=== PATIENT | female | born 1955 | race African-American/Black ===

== ENCOUNTER 2020-02-27 09:58 | Inpatient (IN) | payer OTHER ==
[~2020-02-27] VITALS: Ht 157.5 cm; Wt 76.4 kg
[2020-02-27] VITALS (15 sets, daily range): BP systolic 103–239; BP diastolic 73–113
[~2020-02-27 09:58] MED LIST: ACETAMINOPHEN-1 EAC1 ORAL; AMOXICILLIN500 M1 PO; AMOXICILLIN500 MG ORAL; BENAZEPRIL HCL40 MG ORAL; GLUCOTROL10 MG ORAL; IBUPROFEN600 MG ORAL; LANTUS SOL100 UNIT/1 SUBQ; LEVEMIR FL100 UNIT/1 SUBQ; LISINOPRIL20 MG ORAL; METFORMIN HCL1000 M1 ORAL; NORVASC5 MG ORAL; NOVOLOG100 UNIT/4 SQ; NOVOLOG100 UNITS1 SUBQ; ROBAXIN-750750 MG PO; VERAPAMIL ER120 M1 PO; bp med
--- NOTE | 2020-02-27 10:11 | Emergency Room Report ---
History of Present Illness General Chief Complaint: Nausea, Vomiting, and Diarrhea Source: Patient, EMS Present Illness HPI Patient is a 64-year-old female past medical history of diabetes, hypertension and obesity who was brought in by EMS from her home for nausea, vomiting and diarrhea. Patient complains of diffuse abdominal cramping that began last night. She complains of nonbilious nonbloody vomitus as well as nonbloody diarrhea. She states that she has not taken any of her medications today per EMS patient was hypertensive. She denies any headache, dizziness or blurry vision. She denies any chest pain or shortness of breath. She denies any focal weakness. Patient was given 4 mg of Zofran and IV fluids by EMS prior to arrival. 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 Patient History Reviewed Nursing Documentation: PMH: Agreed; PSxH: Agreed Nursing Documentation-PMH Past Medical History: No History, Except For Hx Cardiac Problems: Yes Hx Hypertension: Yes Hx Diabetes: Yes Hx Cancer: No Hx Gastrointestinal Problems: Yes - Nausea, Vomiting, Diarrhea Hx Neurological Problems: No Hx Cerebrovascular Accident: Yes Review of Systems All Other Systems: negative except mentioned in HPI Physical Exam Vital Signs Date Time Temp Pulse Resp B/P (MAP) Pulse Ox O2 Delivery O2 Flow Rate FiO2 02/27/20 09:52 97.9 120 17 242/130 (167) 99 Room Air Sp02 EP Interpretation: reviewed, normal General Appearance: alert, GCS 15, mild distress Head: normocephalic, atraumatic Eyes: bilateral eye normal inspection, bilateral eye PERRL ENT: dry mucus membranes Neck: full range of motion, supple/symm/no masses Respiratory: chest non-tender, lungs clear, normal breath sounds, speaking full sentences Cardiovascular #1: tachycardia Gastrointestinal: no guarding, no rebound, other - Mild diffuse abdominal pain Rectal: deferred Genitourinary: no CVA tenderness Musculoskeletal: normal range of motion, no calf tenderness 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 Due to a high probability of clinically significant, life threatening deterioration, the patient required my highest level of preparedness to intervene emergently and I personally spent this critical care time directly and personally managing the patient. This critical care time included obtaining a history; examining the patient; pulse oximetry; ordering and review of studies; arranging urgent treatment with development of a management plan; evaluation of patient's response to treatment ; frequent reassessment; and, discussions with other providers.This critical care time was performed to assess and manage the high probability of imminent, life-threatening deterioration that could result in multi-organ failure. It was exclusive of separately billable procedures and treating other patients and teaching time. Please see MDM section and the rest of the note for further information on patient assessment and treatment. Medical Decision Making Diagnostic Impression: Primary Impression: DKA (diabetic ketoacidoses) Additional Impressions: Hypertensive emergency Hypokalemia Acute renal failure Dehydration Sepsis Elevated troponin ER Course Patient has been pancultured. Patient given 30 mg of IV hydralazine for her hypertensive emergency. Her blood pressure has improved. Patient in DKA. Patient given 7 units of IV insulin and started on insulin drip. Patient's potassium is only 3.4 I have ordered for oral and IV potassium supplementation. Patient has elevated troponin with no chest pain. Patient given aspirin p.o. IV fluids have been stopped due to the fact that she has CHF and risk of respiratory failure. Patient will be admitted to the ICU for further treatment and evaluation. Laboratory Tests Test 02/27/20 10:10 02/27/20 10:12 02/27/20 10:22 02/27/20 11:30 White Blood Count 14.4 K/UL (4.8-10.8) H Red Blood Count 6.32 M/UL (4.20-5.40) H Hemoglobin 16.1 G/DL (12.0-16.0) H Hematocrit 49.3 % (37.0-47.0) H Mean Corpuscular Volume 78 FL (80-99) L Mean Corpuscular Hemoglobin 25.5 PG (27.0-31.0) L Mean Corpuscular Hemoglobin Concent 32.7 G/DL (32.0-36.0) Red Cell Distribution Width 13.5 % (11.6-14.8) Platelet Count 293 K/UL (150-450) Mean Platelet Volume 7.7 FL (6.5-10.1) Neutrophils (%) (Auto) % (45.0-75.0) Lymphocytes (%) (Auto) % (20.0-45.0) Monocytes (%) (Auto) % (1.0-10.0) Eosinophils (%) (Auto) % (0.0-3.0) Basophils (%) (Auto) % (0.0-2.0) Differential Total Cells Counted 100 Neutrophils % (Manual) 90 % (45-75) H Lymphocytes % (Manual) 5 % (20-45) L Monocytes % (Manual) 5 % (1-10) Eosinophils % (Manual) 0 % (0-3) Basophils % (Manual) 0 % (0-2) Band Neutrophils 0 % (0-8) Platelet Estimate Adequate Platelet Morphology Normal Red Blood Cell Morphology Normal Prothrombin Time 11.1 SEC (9.30-11.50) Prothrombin Time INR 1.0 (0.9-1.1) Activated Partial Thromboplast Time 22 SEC (23-33) L Urine Color Pale yellow Urine Appearance Clear Urine pH 6.5 (4.5-8.0) Urine Specific [place] 1.005 (1.005-1.035) Urine Protein 3+ (NEGATIVE) H Urine Glucose (UA) 4+ (NEGATIVE) H Urine Ketones 2+ (NEGATIVE) H Urine Blood 3+ (NEGATIVE) H Urine Nitrite Negative (NEGATIVE) Urine Bilirubin Negative (NEGATIVE) Urine Urobilinogen Normal MG/DL (0.0-1.0) Urine Leukocyte Esterase Negative (NEGATIVE) Urine RBC 5-10 /HPF (0 - 2) H Urine WBC 0-2 /HPF (0 - 2) Urine Squamous Epithelial Cells Few /LPF (NONE/OCC) Urine Bacteria Occasional /HPF (NONE) Sodium Level 138 MMOL/L (136-145) Potassium Level 3.4 MMOL/L (3.5-5.1) L Chloride Level 99 MMOL/L (98-107) Carbon Dioxide Level 20 MMOL/L (21-32) L Anion Gap 19 mmol/L (5-15) H Blood Urea Nitrogen 18 mg/dL (7-18) Creatinine 1.4 MG/DL (0.55-1.30) H Estimated Glomerular Filtration Rate 45.8 mL/min (>60) Glucose Level 439 MG/DL (74-106) H Lactic Acid Level 4.30 mmol/L (0.4-2.0) H 4.90 mmol/L (0.66-2.22) H Calcium Level 9.5 MG/DL (8.5-10.1) Magnesium Level 1.8 MG/DL (1.8-2.4) Total Bilirubin 0.6 MG/DL (0.2-1.0) Aspartate Amino Transferase (AST) 19 U/L (15-37) Alanine Aminotransferase (ALT) 28 U/L (12-78) Alkaline Phosphatase 124 U/L (46-116) H Troponin I 0.080 ng/mL (0.000-0.056) Pro-B-Type Natriuretic Peptide 2985 pg/mL (0-125) H Total Protein 9.3 G/DL (6.4-8.2) H Albumin 4.0 G/DL (3.4-5.0) Globulin 5.3 g/dL Albumin/Globulin Ratio 0.8 (1.0-2.7) L Lipase 105 U/L (73-393) Urine Opiates Screen Negative (NEGATIVE) Urine Barbiturates Screen Negative (NEGATIVE) Phencyclidine (PCP) Screen Negative (NEGATIVE) Urine Amphetamines Screen Negative (NEGATIVE) Urine Benzodiazepines Screen Negative (NEGATIVE) Urine Cocaine Screen Negative (NEGATIVE) Urine Marijuana (THC) Screen Positive (NEGATIVE) H Acetone Level Negative (NEGATIVE) Venous Blood pH 7.487 Venous Blood Partial Pressure CO2 25.7 Venous Blood Partial Pressure O2 45.2 Venous Blood HCO3 19.0 Venous Blood Total Carbon Dioxide Pending Venous Blood Base Excess -2.3 Venous Blood Carboxyhemoglobin Pending Methemoglobin Pending POC Whole Blood Glucose 456 MG/DL (74-106) H Test 02/27/20 11:59 POC Whole Blood Glucose Pending Microbiology Date/Time Source Procedure Growth Status 02/27/20 11:00 Nasopharynx SARS-CoV-2 RdRp Gene Assay - Final Complete EKG Diagnostic Results EKG Time: 10:13 EP Interpretation: Devika Topete MD Rate: tachycardiac - 120 bpm Rhythm: other - Tachycardia ST Segments: no acute changes Other Impression Very shaky baseline due to patient movement Rhythm Strip Diag. Results Rhythm Strip Time: 10:12 EP Interpretation: yes - Devika Topete MD Rate: 117 bpm Rhythm: NSR, no PVC's, no ectopy Chest X-Ray Diagnostic Results Chest X-Ray Diagnostic Results : Chest X-Ray Ordered: Yes # of Views/Limited/Complete: 1 View Indication: Other - sepsis EP Interpretation: Yes Interpretation: no consolidation, no effusion, no pneumothorax Impression: No acute disease Electronically Signed by: Devika Topete MD Last Vital Signs Date Time Temp Pulse Resp B/P (MAP) Pulse Ox O2 Delivery O2 Flow Rate FiO2 02/27/20 09:52 97.9 120 17 242/130 (167) 99 Room Air Disposition: ADMITTED INPATIENT - ICU Condition: Critical Physician Consult: Dr. Rogers Additional Instructions: Please note that this report is being documented using [employer] technology. This can lead to erroneous entry secondary to incorrect interpretation by the dictating instrument. Sepsis Event Note Evaluation Current Stage of Sepsis: Severe Sepsis Possible Source: GI Tract/Intra-Abdominal Focused Exam Allergies: Uncoded Allergies: AVOCADOS (Allergy, Unknown, 02/27/20) Date Exam Occurred: Feb 27, 2020 Time Exam Occurred: 11:23 Laboratory Studies Laboratory Tests Test 02/27/20 10:10 02/27/20 10:12 02/27/20 10:22 White Blood Count 14.4 K/UL (4.8-10.8) H Red Blood Count 6.32 M/UL (4.20-5.40) H Hemoglobin 16.1 G/DL (12.0-16.0) H Hematocrit 49.3 % (37.0-47.0) H Mean Corpuscular Volume 78 FL (80-99) L Mean Corpuscular Hemoglobin 25.5 PG (27.0-31.0) L Mean Corpuscular Hemoglobin Concent 32.7 G/DL (32.0-36.0) Red Cell Distribution Width 13.5 % (11.6-14.8) Platelet Count 293 K/UL (150-450) Mean Platelet Volume 7.7 FL (6.5-10.1) Neutrophils (%) (Auto) % (45.0-75.0) Lymphocytes (%) (Auto) % (20.0-45.0) Monocytes (%) (Auto) % (1.0-10.0) Eosinophils (%) (Auto) % (0.0-3.0) Basophils (%) (Auto) % (0.0-2.0) Differential Total Cells Counted 100 Neutrophils % (Manual) 90 % (45-75) H Lymphocytes % (Manual) 5 % (20-45) L Monocytes % (Manual) 5 % (1-10) Eosinophils % (Manual) 0 % (0-3) Basophils % (Manual) 0 % (0-2) Band Neutrophils 0 % (0-8) Platelet Estimate Adequate Platelet Morphology Normal Red Blood Cell Morphology Normal Prothrombin Time 11.1 SEC (9.30-11.50) Prothromb Time International Ratio 1.0 (0.9-1.1) Activated Partial Thromboplast Time 22 SEC (23-33) L Urine Color Pale yellow Urine Appearance Clear Urine pH 6.5 (4.5-8.0) Urine Specific [place] 1.005 (1.005-1.035) Urine Protein 3+ (NEGATIVE) H Urine Glucose (UA) 4+ (NEGATIVE) H Urine Ketones 2+ (NEGATIVE) H Urine Blood 3+ (NEGATIVE) H Urine Nitrite Negative (NEGATIVE) Urine Bilirubin Negative (NEGATIVE) Urine Urobilinogen Normal MG/DL (0.0-1.0) Urine Leukocyte Esterase Negative (NEGATIVE) Urine RBC 5-10 /HPF (0 - 2) H Urine WBC 0-2 /HPF (0 - 2) Urine Squamous Epithelial Cells Few /LPF (NONE/OCC) Urine Bacteria Occasional /HPF (NONE) Sodium Level 138 MMOL/L (136-145) Potassium Level 3.4 MMOL/L (3.5-5.1) L Chloride Level 99 MMOL/L (98-107) Carbon Dioxide Level 20 MMOL/L (21-32) L Anion Gap 19 mmol/L (5-15) H Blood Urea Nitrogen 18 mg/dL (7-18) Creatinine 1.4 MG/DL (0.55-1.30) H Estimat Glomerular Filtration Rate 45.8 mL/min (>60) Glucose Level 439 MG/DL (74-106) H Lactic Acid Level 4.30 mmol/L (0.4-2.0) H Calcium Level 9.5 MG/DL (8.5-10.1) Magnesium Level 1.8 MG/DL (1.8-2.4) Total Bilirubin 0.6 MG/DL (0.2-1.0) Aspartate Amino Transf (AST/SGOT) 19 U/L (15-37) Alanine Aminotransferase (ALT/SGPT) 28 U/L (12-78) Alkaline Phosphatase 124 U/L (46-116) H Troponin I 0.080 ng/mL (0.000-0.056) Pro-B-Type Natriuretic Peptide 2985 pg/mL (0-125) H Total Protein 9.3 G/DL (6.4-8.2) H Albumin 4.0 G/DL (3.4-5.0) Globulin 5.3 g/dL Albumin/Globulin Ratio 0.8 (1.0-2.7) L Lipase 105 U/L (73-393) Urine Opiates Screen Negative (NEGATIVE) Urine Barbiturates Screen Negative (NEGATIVE) Phencyclidine (PCP) Screen Negative (NEGATIVE) Urine Amphetamines Screen Negative (NEGATIVE) Urine Benzodiazepines Screen Negative (NEGATIVE) Urine Cocaine Screen Negative (NEGATIVE) Urine Marijuana (THC) Screen Positive (NEGATIVE) H Acetone Level Negative (NEGATIVE) Venous Blood pH 7.487 Venous Blood Partial Pressure CO2 25.7 Venous Blood Partial Pressure O2 45.2 Venous Blood HCO3 19.0 Venous Blood Total Carbon Dioxide Pending Venous Blood Base Excess -2.3 Venous Blood Carboxyhemoglobin Pending Methemoglobin Pending POC Whole Blood Glucose 456 MG/DL (74-106) H Vital Signs Last 24 Hour Vital Signs Date Time Temp Pulse Resp B/P (MAP) Pulse Ox O2 Delivery O2 Flow Rate FiO2 02/27/20 11:21 97.9 02/27/20 10:51 239/113 02/27/20 10:30 97.9 17 239/113 99 Room Air 02/27/20 10:21 242/130 02/27/20 09:52 97.9 120 17 242/130 (167) 99 Room Air Respiratory Exam: Clear Cardiovascular Exam: Tachycardia Capillary Refill: Less Than 2 Seconds Peripheral Pulse: Devika Becker M.D. Feb 27, 2020 10:11
[2020-02-27] MEDS ORDERED: FLOMAX0.4 MG ORAL (10:12)
[2020-02-27] MEDS ORDERED: ATORVASTATIN CA20 MG ORAL (10:14)
[2020-02-27] MEDS ORDERED: CLOPIDOGREL75 MG ORAL (10:14)
[2020-02-27] MEDS ORDERED: fentaNYL 100 mcg/2 mL IV ONE (10:15)
--- NOTE | 2020-02-27 10:25 | NUR ---
ED Nurse Note:pt. was BIBA from home with hypertension and nausea eleanor, pt. is a/ox4 ambulatory, EKG done and reveiwed by ER MD, blood and urine sent to labs, placed on surveillance system monitor for observation, given iv meds and fluids
[2020-02-27] MEDS ORDERED: Insulin Human Regular 100units/ml 3ml IV ONE (10:30)
[2020-02-27 10:33] LABS: HEMATOCRIT 49.3 % (37.0-47.0); HEMOGLOBIN 16.1 G/DL (12.0-16.0); MEAN CORPUSCULAR VOLUME 78 FL (80-99); PLATELET COUNT 293 K/UL (150-450); RED BLOOD COUNT 6.32 M/UL (4.20-5.40); RED CELL DISTRIBUTION WIDTH 13.5 % (11.6-14.8); WHITE BLOOD COUNT 14.4 K/UL (4.8-10.8)
[2020-02-27 10:35] LABS: APPEARANCE,URINE CLEAR; BILIRUBIN, URINE NEGATIVE (NEGATIVE); COLOR,URINE PALE YELLOW; GLUCOSE, URINE (UA) 4+ (NEGATIVE); KETONES,URINE 2+ (NEGATIVE); LEUKOCYTE ESTERASE ,URINE NEGATIVE (NEGATIVE); NITRITE,URINE NEGATIVE (NEGATIVE); PH,URINE 6.5 (4.5-8.0); PROTEIN,URINE 3+ (NEGATIVE); UROBILINOGEN,URINE NORMAL MG/DL (0.0-1.0)
[2020-02-27 10:39] LABS: ANION GAP 19 mmol/L (5-15); BLOOD UREA NITROGEN 18 mg/dL (7-18); CALCIUM 9.5 MG/DL (8.5-10.1); CARBON DIOXIDE 20 MMOL/L (21-32); CHLORIDE 99 MMOL/L (98-107); CREATININE 1.4 MG/DL (0.55-1.30); POTASSIUM 3.4 MMOL/L (3.5-5.1); SODIUM 138 MMOL/L (136-145)
[2020-02-27 10:43] LABS: ALANINE AMINOTRANSFERASE 28 U/L (12-78); ALBUMIN/GLOBULIN RATIO 0.8 (1.0-2.7); ALKALINE PHOSPHATASE 124 U/L (46-116); ASPARTATE AMINO TRANSFERASE 19 U/L (15-37); BILIRUBIN,TOTAL 0.6 MG/DL (0.2-1.0)
[2020-02-27] MEDS ORDERED: Insulin Reg 100 units Premix 100 ML IVPB SCH ×4 (11:00→23:00)
--- NOTE | 2020-02-27 11:08 | NUR ---
ED Nurse Note:covid swab sent to labs, pt. went to CT scan
[2020-02-27] MEDS ORDERED: Vancomycin 1 GM in NS 275 ML IVPB ONE ×2 (11:30→13:30)
[2020-02-27] MEDS ORDERED: Cefepime HCl 2 GM in D5W 55 ML IVPB ONE (11:30)
--- NOTE | 2020-02-27 11:54 | Diagnostic Imaging Report ---
EXAM: XR Chest, 1 View CLINICAL HISTORY: PAIN TECHNIQUE: Frontal view of the chest. COMPARISON: Chest x-ray 11/18/13 FINDINGS: Lungs: Minimal left lung base atelectasis. Lungs otherwise clear. No consolidation. Pleural space: Unremarkable. No pneumothorax. Heart: Unremarkable. No cardiomegaly. Mediastinum: Unremarkable. Bones/joints: Unremarkable. IMPRESSION: No acute process.
--- NOTE | 2020-02-27 11:55 | NUR ---
ED Nurse Note:lactic reflax sent to labs, pt. was starterd on insulin drip,
--- NOTE | 2020-02-27 12:00 | NUR ---
ED Nurse Note:rechecked MD HETAL notifed
--- NOTE | 2020-02-27 14:01 | NUR ---
ED Nurse Note: Pt arrived with NVD, but for patient status as non-COVID, charting Triage as "no COVID symptoms."
--- NOTE | 2020-02-27 14:03 | NUR ---
ED Nurse Note: report given to JESSICA Ye
--- NOTE | 2020-02-27 14:05 | NUR ---
NURSE NOTES: Received report from JESSICA Gray.
--- NOTE | 2020-02-27 14:17 | NUR ---
NURSE NOTES: Patient is transferred from ED. Patient is alert and oriented x4. ST 120s on the monitor. Room air. O2 sat 96%. Insulin drip 7 units/hr running via right AC. KCL 10meq 100ml/hr running via right hand. Skin intact and clean. Kept dry, clean and comfortable. Will continue plan of care.
[2020-02-27] MEDS ORDERED: Hydromorphone 0.5mg/0.5ml inj IVP PRN (14:30)
[2020-02-27] MEDS ORDERED: Insulin Human Regular 100units/ml 3ml IV PRN (15:00)
[2020-02-27] MEDS ORDERED: D5 1/2NS 1,000 ML IV SCH ×2 (15:00→19:00)
[2020-02-27] MEDS ORDERED: Insulin Rate Change 1 Each MISC PRN (15:00)
--- NOTE | 2020-02-27 15:55 | NUR ---
NURSE NOTES: BS 322. insulin bolus 10units given, started insulin drip @ 13.3ml/hr in algorithm 3. Patient said she feels more comfortable. Will continue plan of care.
--- NOTE | 2020-02-27 16:03 | History & Physical ---
History and Physical History & Physicial History and Physical HPI Patient is a 64-year-old woman with past medical history of diabetes, hypertension and obesity admitted with nausea, vomiting and diarrhea, diffuse abdominal cramping that began last night. She complains of nonbilious nonbloody vomitus as well as nonbloody diarrhea. She states that she has not taken any of her medications today and noted her sugar and blood pressure to be elevated. She denies any headache, dizziness or blurry vision. She denies any chest pain or shortness of breath. She denies any focal weakness. Allergies: AVOCADOS Past Medical History: Hypertension, Diabetes,previous CVA All Other Systems: negative except mentioned in HPI Physical Exam Vital Signs Noted Date Time Temp Pulse Resp B/P (MAP) Pulse Ox O2 Delivery O2 Flow Rate FiO2 02/27/20 09:52 97.9 120 17 242/130 (167) 99 Room Air General Appearance: alert, GCS 15, no respiratory distress Head: normocephalic, atraumatic Eyes: bilateral eye normal inspection, bilateral eye PERRL ENT: dryish mucus membranes Neck: full range of motion, supple/symm/no masses, no LN Respiratory: chest non-tender, lungs clear, normal breath sounds, speaking full sentences Cardiovascular: tachycardia, HS1, HS2, RRR Gastrointestinal: no guarding, no rebound, other - Mild diffuse abdominal pain Genitourinary: no CVA tenderness Musculoskeletal: normal range of motion, no calf tenderness Neurologic: No foacalsigns, oriented x3, no seizures Skin: no rash CXR: No focalinfiltrates UA: few bacteria Impression: Diabetic ketoacidoses Possible UTI /sepsis Elevated Troponin Hypertensive emergency CHF with elevated BNP Hypokalemia sp correction in ED Acute renal failure Dehydration Plan IV Antibiotics IV AB 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 CONCETTA inhibitor Cautious IV fluids Restart Lasix in AM ASA/Plavix PPX Cardiology Consultation Monitor labs Laboratory Tests Test 02/27/20 10:10 02/27/20 10:12 02/27/20 10:22 02/27/20 11:30 White Blood Count 14.4 K/UL (4.8-10.8) H Red Blood Count 6.32 M/UL (4.20-5.40) H Hemoglobin 16.1 G/DL (12.0-16.0) H Hematocrit 49.3 % (37.0-47.0) H Mean Corpuscular Volume 78 FL (80-99) L Mean Corpuscular Hemoglobin 25.5 PG (27.0-31.0) L Mean Corpuscular Hemoglobin Concent 32.7 G/DL (32.0-36.0) Red Cell Distribution Width 13.5 % (11.6-14.8) Platelet Count 293 K/UL (150-450) Mean Platelet Volume 7.7 FL (6.5-10.1) Neutrophils (%) (Auto) % (45.0-75.0) Lymphocytes (%) (Auto) % (20.0-45.0) Monocytes (%) (Auto) % (1.0-10.0) Eosinophils (%) (Auto) % (0.0-3.0) Basophils (%) (Auto) % (0.0-2.0) Differential Total Cells Counted 100 Neutrophils % (Manual) 90 % (45-75) H Lymphocytes % (Manual) 5 % (20-45) L Monocytes % (Manual) 5 % (1-10) Eosinophils % (Manual) 0 % (0-3) Basophils % (Manual) 0 % (0-2) Band Neutrophils 0 % (0-8) Platelet Estimate Adequate Platelet Morphology Normal Red Blood Cell Morphology Normal Prothrombin Time 11.1 SEC (9.30-11.50) Prothrombin Time INR 1.0 (0.9-1.1) Activated Partial Thromboplast Time 22 SEC (23-33) L Urine Color Pale yellow Urine Appearance Clear Urine pH 6.5 (4.5-8.0) Urine Specific [place] 1.005 (1.005-1.035) Urine Protein 3+ (NEGATIVE) H Urine Glucose (UA) 4+ (NEGATIVE) H Urine Ketones 2+ (NEGATIVE) H Urine Blood 3+ (NEGATIVE) H Urine Nitrite Negative (NEGATIVE) Urine Bilirubin Negative (NEGATIVE) Urine Urobilinogen Normal MG/DL (0.0-1.0) Urine Leukocyte Esterase Negative (NEGATIVE) Urine RBC 5-10 /HPF (0 - 2) H Urine WBC 0-2 /HPF (0 - 2) Urine Squamous Epithelial Cells Few /LPF (NONE/OCC) Urine Bacteria Occasional /HPF (NONE) Sodium Level 138 MMOL/L (136-145) Potassium Level 3.4 MMOL/L (3.5-5.1) L Chloride Level 99 MMOL/L (98-107) Carbon Dioxide Level 20 MMOL/L (21-32) L Anion Gap 19 mmol/L (5-15) H Blood Urea Nitrogen 18 mg/dL (7-18) Creatinine 1.4 MG/DL (0.55-1.30) H Estimated Glomerular Filtration Rate 45.8 mL/min (>60) Glucose Level 439 MG/DL (74-106) H Lactic Acid Level 4.30 mmol/L (0.4-2.0) H 4.90 mmol/L (0.66-2.22) H Calcium Level 9.5 MG/DL (8.5-10.1) Magnesium Level 1.8 MG/DL (1.8-2.4) Total Bilirubin 0.6 MG/DL (0.2-1.0) Aspartate Amino Transferase (AST) 19 U/L (15-37) Alanine Aminotransferase (ALT) 28 U/L (12-78) Alkaline Phosphatase 124 U/L (46-116) H Troponin I 0.080 ng/mL (0.000-0.056) Pro-B-Type Natriuretic Peptide 2985 pg/mL (0-125) H Total Protein 9.3 G/DL (6.4-8.2) H Albumin 4.0 G/DL (3.4-5.0) Globulin 5.3 g/dL Albumin/Globulin Ratio 0.8 (1.0-2.7) L Lipase 105 U/L (73-393) Urine Opiates Screen Negative (NEGATIVE) Urine Barbiturates Screen Negative (NEGATIVE) Phencyclidine (PCP) Screen Negative (NEGATIVE) Urine Amphetamines Screen Negative (NEGATIVE) Urine Benzodiazepines Screen Negative (NEGATIVE) Urine Cocaine Screen Negative (NEGATIVE) Urine Marijuana (THC) Screen Positive (NEGATIVE) H Acetone Level Negative (NEGATIVE) Venous Blood pH 7.487 Venous Blood Partial Pressure CO2 25.7 Venous Blood Partial Pressure O2 45.2 Venous Blood HCO3 19.0 Venous Blood Total Carbon Dioxide Pending Venous Blood Base Excess -2.3 Venous Blood Carboxyhemoglobin Pending Methemoglobin Pending POC Whole Blood Glucose 456 MG/DL (74-106) H Test 02/27/20 11:59 POC Whole Blood Glucose Pending Microbiology Date/Time Source Procedure Growth Status 02/27/20 11:00 Nasopharynx SARS-CoV-2 RdRp Gene Assay - Final Complete EKG: no acute changes Rhythm: NSR, no PVC's, no ectopy Chest X-Ray: no consolidation, no effusion, no pneumothorax Impression: No acute disease Electronically Signed by: MD Britany Murguia David MD Feb 27, 2020 16:03
--- NOTE | 2020-02-27 16:15 | NUR ---
NURSE NOTES: Seen by Dr. Brito and assessed patient with new orders.
[2020-02-27 16:47] LABS: ANION GAP 17 mmol/L (5-15); BLOOD UREA NITROGEN 26 mg/dL (7-18); CALCIUM 9.3 MG/DL (8.5-10.1); CARBON DIOXIDE 18 MMOL/L (21-32); CHLORIDE 101 MMOL/L (98-107); CREATININE 1.7 MG/DL (0.55-1.30); PHOSPHORUS 2.2 MG/DL (2.5-4.9); POTASSIUM 3.9 MMOL/L (3.5-5.1); SODIUM 136 MMOL/L (136-145)
--- NOTE | 2020-02-27 16:58 | NUR ---
NURSE NOTES: Kaylene form Lab called to report Troponin of 0.213. I reported to Troponin to primary nurse, JESSICA Barrow
[2020-02-27] MEDS: Insulin Human Regular 100units/ml 3ml IV PRN ×2 (17:00→23:07)
--- NOTE | 2020-02-27 17:00 | NUR ---
NURSE NOTES: BS 209, changed algorithm from 3 to 2, changed rate to 4ml/hr and insulin 5 units IVP given as ordered.
[2020-02-27] MEDS ORDERED: NS 275ml ONE (17:12)
[2020-02-27] MEDS ORDERED: Tubing IV Secondary IV ONE (17:12)
--- NOTE | 2020-02-27 18:00 | NUR ---
NURSE NOTES: BS 114, changed rate to 1ml/hr in algorithm 2. No s/s of hyper/hypoglycemia. Will continue plan of care.
[2020-02-27] MEDS: Aspirin EC 81mg tab ORAL SCH (18:28)
--- NOTE | 2020-02-27 19:00 | NUR ---
NURSE NOTES: BS 134. Insulin drip rate changed to 1.5ml/hr.
--- NOTE | 2020-02-27 19:30 | NUR ---
HAND-OFF: Report given to JESSICA Landon. Endorsed plan of care.
--- NOTE | 2020-02-27 19:35 | NUR ---
NURSE NOTES: Received report from Gary LOPEZ
[2020-02-27] MEDS: D5 IV SCH (19:49)
[2020-02-27] MEDS: [UNRECOGNIZED DRUG - OTHER] IV SCH (19:49)
[2020-02-27] MEDS: POTASSIUM PHOSPHATE IV SCH (19:49)
--- NOTE | 2020-02-27 20:00 | NUR ---
NURSE NOTES: Patient is alert and oriented x4. 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 O2 sat 96%. IV line intact infusing Insulin drip 1.5 units/hr and K Phospate 20 mEq D5 1/2 at 75cc/hr. no s/s of hypo/hyperglycemia. bed alarm on. bed locked and in low position. Instructed patient to use call light for assistance. Skin intact and clean. Kept dry, clean and comfortable. Allergy to Avocados. Full code. Covid negative X1. Will continue plan of care.
[2020-02-27] MEDS ORDERED: cefTRIAXone 1 GM in D5W 55 ML IVPB SCH (21:00)
[2020-02-27] MEDS ORDERED: Atorvastatin 20mg tab ORAL SCH (21:00)
[2020-02-27] MEDS ORDERED: Tamsulosin 0.4mg cap ORAL SCH (21:00)
--- NOTE | 2020-02-27 21:00 | NUR ---
NURSE NOTES: Patient use bedpan. kept clean and dry. no s/s of hypo/hyperglycemia.
[2020-02-27] MEDS: HYDROcodone/Acetamin 5/325 tab ORAL PRN (21:24)
[2020-02-27] MEDS: Heparin 5000 units/ml inj SUBQ SCH (21:25)
--- NOTE | 2020-02-27 23:00 | NUR ---
NURSE NOTES: Blood glucose 265mg/dl, changed Insulin drip to Algo 3 noted mad carried out.
[2020-02-28] VITALS (13 sets, daily range): BP systolic 130–168; BP diastolic 74–106
--- NOTE | 2020-02-28 00:10 | NUR ---
NURSE NOTES: Called Dr. Garg regarding patient refusing NovoLog drip, removed 3 iv line, CN inserted Right F/A #20, also patient requesting Peptobismol for upset stomach. Dr Garg gave new orders noted and carried out. Patient and CN aware.
[2020-02-28] MEDS ORDERED: Bismuth Subsalicylate 30ml ORAL PRN ×2 (00:15→12:15)
[2020-02-28] MEDS ORDERED: Levemir Flexpen SUBQ ONE (00:30)
--- NOTE | 2020-02-28 00:30 | NUR ---
NURSE NOTES: patient complained of abd pain 9/10 repositioned patient in bed offered bed[lawson not effective. Dilaudid 0.5mg IVP given effective, will continue to monitor patient.
--- NOTE | 2020-02-28 02:00 | NUR ---
NURSE NOTES: Patient in bed sleeping comfortably. no urine output. no s/s of hypo/hyperglycemia. Bed alarm on. bed locked and in low position. will continue plan of acre.
--- NOTE | 2020-02-28 03:45 | Consultation ---
DATE OF CONSULTATION: 02/27/2020 CARDIOLOGY CONSULTATION CONSULTING PHYSICIAN: Federico Brito M.D. REQUESTING PHYSICIAN: Armando Duarte M.D. REASON: Hypertensive urgency and elevated troponin level. HISTORY OF PRESENT ILLNESS: This is a 64-year-old female with a history of hypertension and type 2 diabetes. She has had several days of nausea, vomiting, diarrhea, and abdominal cramping. She has had some vomitus as well. She has not been able to take her medications. She was seen in the emergency room and noted to have significant blood pressure elevations over 240 systolic and 130 diastolic. She also was noted to have diabetes out of control and elevated troponin level prompting this consultation. The patient denies any chest pain or shortness of breath. PAST MEDICAL HISTORY: History of CVA, history of hypertension, type 2 diabetes mellitus. ALLERGIES TO MEDICATIONS: None. FAMILY HISTORY: Noncontributory. SOCIAL HISTORY: Negative for smoking, alcohol, or substance abuse. REVIEW OF SYSTEMS: No fevers or chills. No cough. No history of COVID-19 exposure. She has had a prior stroke. There is no history of thyroid disorder. She does not know her cholesterol level. She does have a history of diabetes. She has not had a heart attack. She denies history of leg swelling or abnormal blood clotting. PHYSICAL EXAMINATION: VITAL SIGNS: Blood pressure 242/130, pulse 120, respirations 17, and afebrile. HEENT: Conjunctivae pink. Fundi benign. Oropharynx clear. Mucous membranes dry. NECK: Supple. Jugular venous pressure normal. LUNGS: Clear. CARDIAC: Regular rhythm and rate. Normal S1, S2 with a fourth heart sound. ABDOMEN: Soft, nontender. EXTREMITIES: No edema. NEUROLOGIC: Nonfocal. LABORATORY AND DIAGNOSTIC DATA: White count 14, hemoglobin 16. Troponin 0.08. Natriuretic peptide 2985. Magnesium 1.8. Lactic acid 4.3. Sodium 138, potassium 3.4, bicarb 20, BUN 18, creatinine 1.4, glucose 439, ketone positive. EKG, sinus tachycardia, nonspecific ST change. IMPRESSION: 1. Hypertensive urgency. 2. Diabetic ketoacidosis. 3. Urinary tract infection and possible sepsis. 4. Acute myocardial ischemia. 5. Acute on chronic diastolic congestive heart failure. 6. Hypokalemia. 7. Acute on chronic renal failure. 8. Hypovolemia and dehydration. 9. Hypophosphatemia. 10. Condition critical. Prognosis guarded. PLAN: 1. ICU unit monitoring. 2. Saline hydration. 3. Potassium and phosphorus repletion as needed. 4. Beta-blockade. 5. Titration of antihypertensives. 6. Antiplatelet therapy. 7. DVT prophylaxis. 8. Adjust IV fluids based on acid-base parameters. Federico Brito M.D. DR: JULIETTE JOB#: [id number] CC:
--- NOTE | 2020-02-28 04:56 | NUR ---
NURSE NOTES: Patient no urine output for few hours abdomen distended with discomfort, bladder scan done with 999+ urine in the bladder. Dr Garg made aware with new order to insert F/C for urinary retention. Inserted F/C hungarian #[id number] via aseptic technique, explained the procedure to patients. Patient felt good after the Salazar insertion with 2000cc brooke color urine. per patient she always have hard time urinating. bed bath given. call light within easy reach.
[2020-02-28] MEDS: HYDROcodone/Acetamin 5/325 tab ORAL PRN (06:14)
[2020-02-28 06:19] LABS: HEMATOCRIT 44.9 % (37.0-47.0); HEMOGLOBIN 14.7 G/DL (12.0-16.0); MEAN CORPUSCULAR VOLUME 79 FL (80-99); PLATELET COUNT 264 K/UL (150-450); RED BLOOD COUNT 5.72 M/UL (4.20-5.40); RED CELL DISTRIBUTION WIDTH 13.6 % (11.6-14.8); WHITE BLOOD COUNT 19.1 K/UL (4.8-10.8)
[2020-02-28] MEDS ORDERED: NovoLOG Insulin Flexpen SUBQ SCH ×3 (06:30→11:30)
[2020-02-28 07:15] LABS: ALANINE AMINOTRANSFERASE 22 U/L (12-78); ALBUMIN 3.4 G/DL (3.4-5.0); ALBUMIN/GLOBULIN RATIO 0.7 (1.0-2.7); ALKALINE PHOSPHATASE 107 U/L (46-116); ANION GAP 11 mmol/L (5-15); ASPARTATE AMINO TRANSFERASE 24 U/L (15-37); BILIRUBIN,TOTAL 0.3 MG/DL (0.2-1.0); BLOOD UREA NITROGEN 33 mg/dL (7-18); CARBON DIOXIDE 23 MMOL/L (21-32); CHLORIDE 99 MMOL/L (98-107); CREATININE 2.3 MG/DL (0.55-1.30); POTASSIUM 4.6 MMOL/L (3.5-5.1); SODIUM 133 MMOL/L (136-145)
--- NOTE | 2020-02-28 07:36 | NUR ---
NURSE NOTES: Received patient from Barbi LOPEZ. Patient is awake, alert and oriented x4. Sinus Tachycardia on the heart monitor, HR 100. Receiving oxygen via room air, O2 saturation at 100%, no signs of respiratory distress. IV site is Right Forearm 20g patent and intact. Salazar catheter is intact and draining. Bed is locked, placed in lowest position, side rails up x3 ,bed alarm on, call light within reach. Will continue to monitor.
--- NOTE | 2020-02-28 07:49 | NUR ---
NURSE NOTES: Left message to Dr. Brito's office regarding Troponin level.
[2020-02-28] MEDS: D5 IV SCH (08:11)
[2020-02-28] MEDS: [UNRECOGNIZED DRUG - OTHER] IV SCH (08:11)
[2020-02-28] MEDS: POTASSIUM PHOSPHATE IV SCH (08:11)
[2020-02-28] MEDS: Aspirin EC 81mg tab ORAL SCH (08:11)
[2020-02-28] MEDS: Heparin 5000 units/ml inj SUBQ SCH ×2 (08:15→20:20)
--- NOTE | 2020-02-28 08:19 | NUR ---
NURSE NOTES: Spoke to Dr. Doan, gave VS and Chemistry, per MD to INC D5 1/2 NS with KPhos 20 mEq to 150 ml/hr. Entered MD order with read back.
[2020-02-28] MEDS ORDERED: Pantoprazole Inj IVP SCH (09:00)
[2020-02-28] MEDS ORDERED: Lisinopril 20mg tab ORAL SCH (09:00)
[2020-02-28] MEDS ORDERED: Aspirin Baby 81mg ORAL SCH (09:00)
--- NOTE | 2020-02-28 09:20 | NUR ---
NURSE HAND-OFF REPORT: Important Events on Shift: Patient Status: Full Code Diet: CCHO Medium Cardiac Diet Pending Orders: renal US Pending Results/Labs: n/a Pending MD notification: n/a Latest Vital Signs: Temperature 98.5 , Pulse 100 , B/P 167 /90 , Respiratory Rate 19 , O2 SAT 99 , Room Air, O2 Flow Rate . Vital Sign Comment: Patient denies any pain EKG Rhythm: Sinus Rhythm Rhythm change?: N MD Notified?: - MD Response: Latest [place] Fall Score: 20 Fall Risk: Low Risk Safety Measures: Call light Within Reach, Bed Alarm Zone 2, Side Rails Side Rails x2, Bed position Low and Locked. Fall Precautions: Yellow Socks Door Sign Patient Fall Education Report given to Nedra LOPEZ.
--- NOTE | 2020-02-28 09:22 | NUR ---
NURSE NOTES: Received report from JESSICA Mckee. Patient AAO x4. Denies pain. No acute distress. Breathing regular and unlabored on room air. IV flushed patent, intact, no redness. Fall precautions in place.
--- NOTE | 2020-02-28 09:23 | NUR ---
NURSE NOTES: It was endorsed by JESSICA Mckee that the pt. had verbalized intending to leave AMA. I confirmed with patient and updated MD Doan. Per pt., after discussing with MD Doan, pt. will remain inpatient as discharge is likely tomorrow.
--- NOTE | 2020-02-28 09:57 | Pulmonolgy Critical Care Note ---
Critical Care - Asmt/Plan Assessment/Plan: Pulmonary CCM Progress Note HPI Patient is a 64-year-old woman with past medical history of diabetes, hypertension and obesity admitted with nausea, vomiting and diarrhea, diffuse abdominal cramping that began last night. She complains of nonbilious nonbloody vomitus as well as nonbloody diarrhea - this has now resolved. She denies any abdominalpain, headache, dizziness or blurry vision. She denies any chest pain or shortness of breath. She denies any focal weakness. Noted to have urinary retention requiring cutler catheter. Elevated troponin Allergies: AVOCADOS Past Medical History: Hypertension, Diabetes,previous CVA All Other Systems: negative except mentioned in HPI Physical Exam Vital Signs Noted General Appearance: alert, GCS 15, no respiratory distress Head: normocephalic, atraumatic Eyes: bilateral eye normal inspection, bilateral eye PERRL ENT: dryish mucus membranes Neck: full range of motion, supple/symm/no masses, no LN Respiratory: chest non-tender, lungs clear, normal breath sounds Cardiovascular: tachycardia, HS1, HS2, RRR Gastrointestinal: no guarding, no rebound, other - Mild diffuse abdominal pain Genitourinary: no CVA tenderness Musculoskeletal: normal range of motion, no calf tenderness Neurologic: No focal signs, oriented x3, no seizures Skin: no rash CXR: No focalinfiltrates UA: few bacteria Impression: Diabetic ketoacidosis Possible UTI /sepsis Elevated Troponin Hypertensive emergency CHF with elevated BNP Hypokalemia Acute renal failure Dehydration Plan IV Antibiotics IV AB Insulin SS ID Consultation Cardiology 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 Hold CONCETTA inhibitor Cautious IV fluids ASA/Plavix PPX Monitor labs Laboratory Tests Test 02/27/20 10:10 02/27/20 10:12 02/27/20 10:22 02/27/20 11:30 White Blood Count 14.4 K/UL (4.8-10.8) H Red Blood Count 6.32 M/UL (4.20-5.40) H Hemoglobin 16.1 G/DL (12.0-16.0) H Hematocrit 49.3 % (37.0-47.0) H Mean Corpuscular Volume 78 FL (80-99) L Mean Corpuscular Hemoglobin 25.5 PG (27.0-31.0) L Mean Corpuscular Hemoglobin Concent 32.7 G/DL (32.0-36.0) Red Cell Distribution Width 13.5 % (11.6-14.8) Platelet Count 293 K/UL (150-450) Mean Platelet Volume 7.7 FL (6.5-10.1) Neutrophils (%) (Auto) % (45.0-75.0) Lymphocytes (%) (Auto) % (20.0-45.0) Monocytes (%) (Auto) % (1.0-10.0) Eosinophils (%) (Auto) % (0.0-3.0) Basophils (%) (Auto) % (0.0-2.0) Differential Total Cells Counted 100 Neutrophils % (Manual) 90 % (45-75) H Lymphocytes % (Manual) 5 % (20-45) L Monocytes % (Manual) 5 % (1-10) Eosinophils % (Manual) 0 % (0-3) Basophils % (Manual) 0 % (0-2) Band Neutrophils 0 % (0-8) Platelet Estimate Adequate Platelet Morphology Normal Red Blood Cell Morphology Normal Prothrombin Time 11.1 SEC (9.30-11.50) Prothrombin Time INR 1.0 (0.9-1.1) Activated Partial Thromboplast Time 22 SEC (23-33) L Urine Color Pale yellow Urine Appearance Clear Urine pH 6.5 (4.5-8.0) Urine Specific [place] 1.005 (1.005-1.035) Urine Protein 3+ (NEGATIVE) H Urine Glucose (UA) 4+ (NEGATIVE) H Urine Ketones 2+ (NEGATIVE) H Urine Blood 3+ (NEGATIVE) H Urine Nitrite Negative (NEGATIVE) Urine Bilirubin Negative (NEGATIVE) Urine Urobilinogen Normal MG/DL (0.0-1.0) Urine Leukocyte Esterase Negative (NEGATIVE) Urine RBC 5-10 /HPF (0 - 2) H Urine WBC 0-2 /HPF (0 - 2) Urine Squamous Epithelial Cells Few /LPF (NONE/OCC) Urine Bacteria Occasional /HPF (NONE) Sodium Level 138 MMOL/L (136-145) Potassium Level 3.4 MMOL/L (3.5-5.1) L Chloride Level 99 MMOL/L (98-107) Carbon Dioxide Level 20 MMOL/L (21-32) L Anion Gap 19 mmol/L (5-15) H Blood Urea Nitrogen 18 mg/dL (7-18) Creatinine 1.4 MG/DL (0.55-1.30) H Estimated Glomerular Filtration Rate 45.8 mL/min (>60) Glucose Level 439 MG/DL (74-106) H Lactic Acid Level 4.30 mmol/L (0.4-2.0) H 4.90 mmol/L (0.66-2.22) H Calcium Level 9.5 MG/DL (8.5-10.1) Magnesium Level 1.8 MG/DL (1.8-2.4) Total Bilirubin 0.6 MG/DL (0.2-1.0) Aspartate Amino Transferase (AST) 19 U/L (15-37) Alanine Aminotransferase (ALT) 28 U/L (12-78) Alkaline Phosphatase 124 U/L (46-116) H Troponin I 0.080 ng/mL (0.000-0.056) Pro-B-Type Natriuretic Peptide 2985 pg/mL (0-125) H Total Protein 9.3 G/DL (6.4-8.2) H Albumin 4.0 G/DL (3.4-5.0) Globulin 5.3 g/dL Albumin/Globulin Ratio 0.8 (1.0-2.7) L Lipase 105 U/L (73-393) Urine Opiates Screen Negative (NEGATIVE) Urine Barbiturates Screen Negative (NEGATIVE) Phencyclidine (PCP) Screen Negative (NEGATIVE) Urine Amphetamines Screen Negative (NEGATIVE) Urine Benzodiazepines Screen Negative (NEGATIVE) Urine Cocaine Screen Negative (NEGATIVE) Urine Marijuana (THC) Screen Positive (NEGATIVE) H Acetone Level Negative (NEGATIVE) Venous Blood pH 7.487 Venous Blood Partial Pressure CO2 25.7 Venous Blood Partial Pressure O2 45.2 Venous Blood HCO3 19.0 Venous Blood Total Carbon Dioxide Pending Venous Blood Base Excess -2.3 Venous Blood Carboxyhemoglobin Pending Methemoglobin Pending POC Whole Blood Glucose 456 MG/DL (74-106) H Test 02/27/20 11:59 POC Whole Blood Glucose Pending Microbiology Date/Time Source Procedure Growth Status 02/27/20 11:00 Nasopharynx SARS-CoV-2 RdRp Gene Assay - Final Complete EKG: no acute changes Rhythm: NSR, no PVC's, no ectopy Chest X-Ray: no consolidation, no effusion, no pneumothorax Impression: No acute disease Electronically Signed by: Devika Topete MD Critical Care - Objective Last 24 Hour Vital Signs Date Time Temp Pulse Resp B/P (MAP) Pulse Ox O2 Delivery O2 Flow Rate FiO2 02/28/20 08:13 100 167/90 02/28/20 08:12 167/90 02/28/20 08:12 105 167/90 02/28/20 08:00 Room Air 02/28/20 08:00 98.5 97 19 167/90 (115) 99 02/28/20 07:00 86 19 166/80 (108) 97 02/28/20 06:44 98.0 02/28/20 06:00 88 17 168/85 (112) 97 02/28/20 05:00 Room Air 02/28/20 05:00 97 18 156/99 (118) 96 02/28/20 04:00 Room Air 02/28/20 04:00 100 02/28/20 04:00 98.0 103 21 166/84 (111) 96 02/28/20 03:00 102 20 164/81 (108) 95 02/28/20 02:00 96 21 151/93 (112) 96 02/28/20 01:00 93 22 130/82 (98) 96 02/28/20 00:45 98.0 02/28/20 00:00 103 02/28/20 00:00 Room Air 02/28/20 00:00 98.4 104 19 139/106 (117) 98 02/27/20 23:07 108 20 190/102 (131) 97 02/27/20 23:00 111 21 175/82 (113) 95 02/27/20 22:00 118 17 159/111 (127) 98 02/27/20 21:24 119 128/104 02/27/20 21:00 120 25 128/104 (112) 98 02/27/20 20:00 Room Air 02/27/20 20:00 98.0 120 25 128/104 (112) 98 02/27/20 20:00 120 02/27/20 19:00 118 25 103/90 (94) 98 02/27/20 18:43 191/107 02/27/20 18:00 119 25 181/97 (125) 98 02/27/20 17:18 124 168/83 02/27/20 17:00 123 24 168/93 (118) 99 02/27/20 16:04 Room Air 02/27/20 16:00 129 02/27/20 16:00 98.0 120 22 180/85 (116) 97 02/27/20 15:00 Room Air 02/27/20 15:00 120 21 189/97 (127) 97 02/27/20 14:17 123 02/27/20 14:17 97.6 124 21 157/73 (101) 96 02/27/20 14:06 98.0 123 19 165/80 98 Room Air 02/27/20 14:02 98.0 123 19 165/80 98 Room Air 02/27/20 13:43 219/99 02/27/20 13:32 98.0 120 19 219/99 98 Room Air 02/27/20 11:25 98.0 123 28 165/82 98 Room Air 02/27/20 11:21 97.9 02/27/20 10:51 239/113 02/27/20 10:30 97.9 17 239/113 99 Room Air 02/27/20 10:21 242/130 Micro: Microbiology Date/Time Source Procedure Growth Status 02/27/20 11:00 Nasopharynx SARS-CoV-2 RdRp Gene Assay - Final Complete Accucheck: 250 Critical Care - Subjective ROS Limited/Unobtainable: No Condition: stable I&O: Intake and Output 02/27/20 02/28/20 19:00 07:00 Intake Total 739.63 ml 1086 ml Output Total 2550 ml Balance 739.63 ml -1464 ml Intake Oral 720 ml 120 ml IV Total 19.63 ml 966 ml Output Urine Total 2550 ml # Voids 2 Federico Garg MD Feb 28, 2020 09:56
[2020-02-28] MEDS: Potassium Phosphate 15 MEQ in 1/2 NS 1000ml 1,000 ML IV SCH ×3 (11:30→18:15)
[2020-02-28] MEDS ORDERED: Hydromorphone 0.5mg/0.5ml inj IVP PRN (11:30)
--- NOTE | 2020-02-28 11:44 | Consultation ---
DATE OF CONSULTATION: 02/28/2020 NEPHROLOGY CONSULTATION CONSULTING PHYSICIAN: Danielito Doan MD. REFERRING PHYSICIANS: 1. Armando Duarte MD. 2. . REASON FOR CONSULTATION: Acute kidney injury, electrolyte abnormality, diabetes. HISTORY OF PRESENT ILLNESS: The patient has had about a 20-year history of diabetes, currently on insulin and states that her recent illness started a few days ago when she ate a large amount of spaghetti and potatoes and then had nausea, vomiting, diarrhea. She came to the hospital with abnormal glucose and labs. There is a history of hypertension and hyperlipidemia. ALLERGIES: None known. HOME MEDICATIONS: Basaglar 40 units in the evening, short-acting insulin 14 units b.i.d., atorvastatin 20 mg daily, benazepril 40 mg daily, Plavix 75 mg daily, metformin 1000 mg b.i.d., which she misses often, Flomax 0.4 mg daily. She is not entirely clear about all her medications. HABITS: She was a smoker until age 49, now smokes marijuana intermittently and uses CBD oil and no alcohol or other drugs. PAST SURGICAL HISTORY: section one time. SYSTEM REVIEW: HEAD, EYES, EARS, NOSE, AND THROAT: She has occasional blurry vision. No known diabetic retinopathy. Hearing is good. ENDOCRINE: History of diabetes. No obesity. No known thyroid disease. PULMONARY: History of childhood asthma. No current wheezing, cough, or short of breath. CARDIAC: History of hypertension. No angina or AR. GASTROINTESTINAL: Recent nausea, vomiting and diarrhea. No history of chronic GI complaints, ulcers or gallstones. She apparently has hepatitis C and took medications for about one month and then discontinued. GENITOURINARY: She states she urinates only small amounts and after voiding she has to come back to the toilet and avoid again. There may be some component of neurogenic bladder. No history of kidney stones or recurrent UTIs. MUSCULOSKELETAL: History of some generalized joint pain. NEUROLOGIC: She states she may have had a stroke about 20 years ago with minimal residual. She has some neuropathy and right-sided numbness in the hand and leg and minimal on the left side. PHYSICAL EXAMINATION: GENERAL: The patient is alert lady, lying in bed, in no acute distress. VITAL SIGNS: BMI 29.6, temperature 98.5, pulse 97, blood pressure 167/90, O2 saturation 99%. HEAD, EYES, EARS, NOSE, AND THROAT: Sclerae are nonicteric. Ocular motions intact in all directions. Oral mucosa slightly dry. NECK: No adenopathy or thyroid enlargement. LUNGS: Clear. HEART: Regular rhythm. I hear no murmur. ABDOMEN: Soft without organomegaly or masses. No tenderness. EXTREMITIES: No edema. Note, a Salazar is in place. Clear urine. NEUROLOGIC: She is alert and oriented. Cranial nerves are intact. She moves all extremities. LABORATORY DATA: Review of pertinent labs on 02/27/2020, BUN is 18, creatinine 1.4, sodium 138, potassium 3.4, chloride 99, CO2 20. Troponin 0.080. Albumin is 4, but repeat BUN and creatinine 26 and 1.7 and lactic acid is high as 3.5, phosphorus 2.2. The urinalysis shows 2+ ketones, 4+ glucose, 3+ protein, 5 to 10 red cells per high-power field. Glucose serially has come down from 286 to 249. IMPRESSION: 1. Nausea, vomiting and diarrhea. 2. Insulin-dependent diabetes with hyperglycemia, some ketones in the urine, but not in the serum. 3. Acute kidney injury likely from dehydration. 4. Possible neurogenic bladder. 5. Possible urinary retention. 6. Borderline troponin. 7. Hypophosphatemia. 8. Possible sepsis, white count is 19.1. PLAN: At this time, we will continue her with vigorous hydration. We will try to remove the Salazar and monitor bladder scans, watch her renal function and diabetes very closely. Detailed orders are given. Danielito Doan M.D. DR: ATUL JOB#: [id number] CC:
[2020-02-28] MEDS ORDERED: [UNRECOGNIZED DRUG - OTHER] IV SCH ×2 (12:00→13:00)
[2020-02-28] MEDS ORDERED: POTASSIUM PHOSPHATE IV SCH ×2 (12:00→13:00)
[2020-02-28] MEDS ORDERED: D5 IV SCH ×2 (12:00→13:00)
[2020-02-28] MEDS: NovoLOG Insulin Flexpen SUBQ SCH ×3 (12:30→20:39)
--- NOTE | 2020-02-28 13:29 | NUR ---
CASE MANAGEMENT: - new admission Clinical information (face sheet/ ER MD notes/ H&P / progress notes / lab and imaging reports) faxed to CECILLE Heck/[facility]A @ [phone]. T
[2020-02-28] MEDS ORDERED: HYDROcodone/Acetamin 5/325 tab ORAL PRN (14:30)
--- NOTE | 2020-02-28 15:51 | NUR ---
CASE MANAGEMENT: INITIAL REVIEW 64YR OLD FEMALE BIBA FROM HOME CC:N/V AND DIARRHEA SI:DKZ. ACUTE RENAL FAILURE . ELEVATED TROP . SEPSIS . DEHYDRATION . HYPOKALEMIA TACHYCARDIA . HYPERTENSIVE 97.9 120 17 242/130 99% ON RA WBC 14.4 H/H 16.1/49.3 K+ 3.4 BUN/CREAT 26/1.7 BG 439 BNO 2985 LACTIC ACID 4.30 PTT 22 MARIJUANA + TROP 0.080 - 0.213 IS:IVF NS BOLUS X1 IV FENTANYL X1 IV HYDRALAZINE X2 IV NOVOLIN R X1 IV INSULIN R X1 K-DUR PO X1 IV KCL X1 ASA PO X1 XRAY Chest 1v-No acute process. \: ICU STATUS VERBAL OK TO ADMIT FROM [facility] FAX: [phone] CASE MANAGEMENT:REVIEW 02/28/20 SI:DKA. ACUTE RENAL FAILURE . ELEVATED TROP . SEPSIS . DEHYDRATION . HYPOKALEMIA TACHYCARDIA . HYPERTENSIVE 98.5 105 19 167/90 99% ON RA WBC 19.1 RBC 5.72 NA+133 BUN/CREAT 33/2.3 BG 249 HA1C 162 TROP 0.432 IS:IV KPHOS TID IV K/PHOS/ D5 X1 LOTENSIN PO Q HEPARIN SQ BID PLAVIX PO QD NORVASC PO QD LASIX PO QD LOPRESSOR PO QD PROTONIX PO QD ASA PO X1 NOVOLOG SQ AC+HS \: TRANSFER TO [facility] DCP: HOME WHEN STABLE PLAN: URINE CX~IN PROCESS POST VOID RESIDUAL
--- NOTE | 2020-02-28 16:13 | NUR ---
*-* INSURANCE *-* UPDATED CLINICALS AND REVIEWS HAVE BEEN FAXED TO: C[facility] FAX:[phone] FAX:[phone]
--- NOTE | 2020-02-28 17:55 | Diagnostic Imaging Report ---
EXAM: US Retroperitoneal Complete, Renal CLINICAL HISTORY: ABD PAIN TECHNIQUE: Real-time complete ultrasound of the retroperitoneum with image documentation. COMPARISON: CT abdomen and pelvis 02/27/2020 FINDINGS: Right kidney: The right kidney measures 10.7 x 3.9 x 5.7 cm. No hydronephrosis or nephrolithiasis. No suspicious lesion. Left kidney: Left kidney measures 10.9 x 4.9 x 5.7 cm. No hydronephrosis or nephrolithiasis. Simple cyst measuring 7 mm within the mid to upper renal cortex. Bladder: Decompressed bladder with an indwelling Salazar. IMPRESSION: Unremarkable appearance of the kidneys. No hydronephrosis.
[2020-02-28] MEDS: Tamsulosin 0.4mg cap ORAL SCH (18:08)
--- NOTE | 2020-02-28 19:01 | NUR ---
NURSE HAND-OFF REPORT: Important Events on Shift:Transfer from ICU to Patient Status: Stable Diet: Regular CCHO/Cardiac Regular Pending Orders: Pending Results/Labs: Pending MD notification: Latest Vital Signs: Temperature 97.9 , Pulse 90 , B/P 145 /80 , Respiratory Rate 18 , O2 SAT 100 , Room Air, O2 Flow Rate . Vital Sign Comment: EKG Rhythm: Sinus Rhythm Rhythm change?: N MD Notified?: - MD Response: Latest [place] Fall Score: 20 Fall Risk: Low Risk Safety Measures: Call light Within Reach, Bed Alarm Zone 2, Side Rails Side Rails x2, Bed position Low and Locked. Fall Precautions: Yellow Socks Door Sign Patient Fall Education Report given to JESSICA Loo.
--- NOTE | 2020-02-28 19:18 | NUR ---
NURSE NOTES: Patient received from Tere LOPEZ. Patient in stable condition. Alert and oriented x4. Saturating well on room air. No s/s of distress or c/o pain. S/p cutler catheter will check post void residual q4 while awake. IV site on Right FA 20G patent and intact with 1/2NS with 15 meq of Kphos running @ 125mls/hr. Bed is in lowest position and locked. Call light and bedside table within reach. Will endorse plan of care.
[2020-02-28] MEDS: cefTRIAXone 1 GM in D5W 55 ML IVPB SCH (20:19)
[2020-02-28] MEDS: Atorvastatin 20mg tab ORAL SCH (20:19)
[2020-02-28] MEDS: Levemir Flexpen SUBQ SCH (20:40)
[2020-02-28] MEDS ORDERED: Levemir Flexpen SUBQ SCH ×2 (21:00)
[2020-02-28] MEDS ORDERED: Tamsulosin 0.4mg cap ORAL SCH (21:00)
--- NOTE | 2020-02-28 21:00 | NUR ---
NURSE NOTES: Patient's blood sugar was 178 not eating well, gave half of ordered 40Units dose of Levemir. Patient refused novolog.
--- NOTE | 2020-02-28 21:00 | NUR ---
NURSE NOTES: Health teaching given to patient regarding insulin
--- NOTE | 2020-02-28 22:25 | Cardiology Progress Note ---
Subjective DATE OF SERVICE: Feb 28, 2020 Troponin elevated; no c/o chest pain or SOB. Salazar placed for urinary retention. IVF adjusted by renal Insulin adjustments on-going Objective Last 24 Hour Vital Signs Date Time Temp Pulse Resp B/P (MAP) Pulse Ox O2 Delivery O2 Flow Rate FiO2 02/28/20 20:19 107 132/80 02/28/20 20:00 99 02/28/20 20:00 98.4 107 20 132/80 (97) 98 02/28/20 18:08 90 145/80 02/28/20 16:00 97.9 84 18 134/74 (94) 100 02/28/20 16:00 84 02/28/20 12:00 85 02/28/20 12:00 97.7 87 20 146/81 (102) 99 02/28/20 11:16 142/85 02/28/20 09:22 97.9 87 18 142/85 (104) 100 02/28/20 08:13 100 167/90 02/28/20 08:12 167/90 02/28/20 08:12 105 167/90 02/28/20 08:00 Room Air 02/28/20 08:00 98.5 97 19 167/90 (115) 99 02/28/20 07:32 102 02/28/20 07:00 86 19 166/80 (108) 97 02/28/20 06:44 98.0 02/28/20 06:00 88 17 168/85 (112) 97 02/28/20 05:00 Room Air 02/28/20 05:00 97 18 156/99 (118) 96 02/28/20 04:00 Room Air 02/28/20 04:00 100 02/28/20 04:00 98.0 103 21 166/84 (111) 96 02/28/20 03:00 102 20 164/81 (108) 95 02/28/20 02:00 96 21 151/93 (112) 96 02/28/20 01:00 93 22 130/82 (98) 96 02/28/20 00:45 98.0 02/28/20 00:00 103 02/28/20 00:00 Room Air 02/28/20 00:00 98.4 104 19 139/106 (117) 98 02/27/20 23:07 108 20 190/102 (131) 97 02/27/20 23:00 111 21 175/82 (113) 95 RHYTHM: NSR, ST, PACs LUNGS: lungs clear bilaterally CARDIAC: regular rhythm, normal S1 and S2, gallop/S4 ABDOMEN: non tender, soft, no organomegaly EXTREMITIES: non-tender, No edema Laboratory Tests Test 02/27/20 22:54 02/28/20 05:21 02/28/20 05:30 02/28/20 11:24 POC Whole Blood Glucose Pending Pending 162 MG/DL (74-106) H White Blood Count 19.1 K/UL (4.8-10.8) H Red Blood Count 5.72 M/UL (4.20-5.40) H Hemoglobin 14.7 G/DL (12.0-16.0) Hematocrit 44.9 % (37.0-47.0) Mean Corpuscular Volume 79 FL (80-99) L Mean Corpuscular Hemoglobin 25.7 PG (27.0-31.0) L Mean Corpuscular Hemoglobin Concent 32.7 G/DL (32.0-36.0) Red Cell Distribution Width 13.6 % (11.6-14.8) Platelet Count 264 K/UL (150-450) Mean Platelet Volume 7.7 FL (6.5-10.1) Neutrophils (%) (Auto) % (45.0-75.0) Lymphocytes (%) (Auto) % (20.0-45.0) Monocytes (%) (Auto) % (1.0-10.0) Eosinophils (%) (Auto) % (0.0-3.0) Basophils (%) (Auto) % (0.0-2.0) Differential Total Cells Counted 100 Neutrophils % (Manual) 86 % (45-75) H Lymphocytes % (Manual) 8 % (20-45) L Monocytes % (Manual) 6 % (1-10) Eosinophils % (Manual) 0 % (0-3) Basophils % (Manual) 0 % (0-2) Band Neutrophils 0 % (0-8) Platelet Estimate Adequate Platelet Morphology Normal Red Blood Cell Morphology Normal Sodium Level 133 MMOL/L (136-145) L Potassium Level 4.6 MMOL/L (3.5-5.1) Chloride Level 99 MMOL/L (98-107) Carbon Dioxide Level 23 MMOL/L (21-32) Anion Gap 11 mmol/L (5-15) Blood Urea Nitrogen 33 mg/dL (7-18) H Creatinine 2.3 MG/DL (0.55-1.30) H Estimat Glomerular Filtration Rate 25.8 mL/min (>60) Glucose Level 249 MG/DL (74-106) H Hemoglobin A1c 7.7 % (4.3-6.0) H Calcium Level 9.0 MG/DL (8.5-10.1) Total Bilirubin 0.3 MG/DL (0.2-1.0) Aspartate Amino Transf (AST/SGOT) 24 U/L (15-37) Alanine Aminotransferase (ALT/SGPT) 22 U/L (12-78) Alkaline Phosphatase 107 U/L (46-116) Troponin I 0.432 ng/mL (0.000-0.056) Total Protein 8.3 G/DL (6.4-8.2) H Albumin 3.4 G/DL (3.4-5.0) Globulin 4.9 g/dL Albumin/Globulin Ratio 0.7 (1.0-2.7) L Test 02/28/20 17:38 POC Whole Blood Glucose Pending Microbiology Date/Time Source Procedure Growth Status 02/27/20 11:00 Nasopharynx SARS-CoV-2 RdRp Gene Assay - Final Complete EKG INTERPRETATION: 2D Echo: normal LVEF Assessment/Plan Assessment/Plan DKA Acute myocardial infarction Hypertension/HHD Chronic diastolic CHF UTI with sepsis Hypovolemia Hypokalemia Hypophosphatemia IVF Antiplatelet therapy Check Lipids Titrate insulin Titrate antiHTN and anti-anginal regimen Replace K/Phos Myocardial perfusion scan to follow. Federico Brito MD Feb 28, 2020 22:25
--- NOTE | 2020-02-29 00:47 | NUR ---
NURSE NOTES: Patient is s/p cutler catheter and has not urinated since. Bladder scan done and shows 96mls residual. No action required as of now. Order is straight cath for 400mls or more.
[2020-02-29] MEDS: Potassium Phosphate 15 MEQ in 1/2 NS 1000ml 1,000 ML IV SCH ×2 (03:45→11:44)
[2020-02-29 04:00] VITALS: BP 119/63
[2020-02-29] MEDS: NovoLOG Insulin Flexpen SUBQ SCH ×7 (06:11→21:00)
[2020-02-29 07:19] LABS: BASOPHILS % (AUTO) 0.5 % (0.0-2.0); EOSINOPHILS % (AUTO) 0.9 % (0.0-3.0); HEMATOCRIT 40.2 % (37.0-47.0); LYMPHOCYTES % (AUTO) 25.7 % (20.0-45.0); MEAN CORPUSCULAR VOLUME 78 FL (80-99); MONOCYTES % (AUTO) 5.3 % (1.0-10.0); NEUTROPHILS % (AUTO) 67.6 % (45.0-75.0); PLATELET COUNT 251 K/UL (150-450); RED BLOOD COUNT 5.12 M/UL (4.20-5.40); RED CELL DISTRIBUTION WIDTH 13.5 % (11.6-14.8); WHITE BLOOD COUNT 11.9 K/UL (4.8-10.8)
--- NOTE | 2020-02-29 07:30 | NUR ---
NURSE NOTES: Received pt from Eze RN, Pt is awake and alert, pt is in RA, no SOB or acute respiratory distress noted. pt is on continues heart monitoring, pt has intact iv access RH 22G SL. Dr Duarte is aware about pt doesn't Urin after D/C Salazar, no new order to RN. No complain of pain at this moment. all needs attended, bed is locked and is in the lowest position, call light within easy reach. will continue to monitor.
[2020-02-29 07:40] LABS: ALANINE AMINOTRANSFERASE 26 U/L (12-78); ALBUMIN/GLOBULIN RATIO 0.7 (1.0-2.7); ALKALINE PHOSPHATASE 90 U/L (46-116); ANION GAP 8 mmol/L (5-15); ASPARTATE AMINO TRANSFERASE 17 U/L (15-37); BILIRUBIN,TOTAL 0.4 MG/DL (0.2-1.0); BLOOD UREA NITROGEN 26 mg/dL (7-18); CALCIUM 8.5 MG/DL (8.5-10.1); CARBON DIOXIDE 25 MMOL/L (21-32); CHLORIDE 103 MMOL/L (98-107); CREATININE 1.2 MG/DL (0.55-1.30); SODIUM 136 MMOL/L (136-145)
[2020-02-29 07:42] LABS: CREATINE KINASE 90 U/L (26-308); PHOSPHORUS 4.8 MG/DL (2.5-4.9)
--- NOTE | 2020-02-29 07:48 | NUR ---
NURSE HAND-OFF REPORT: Important Events on Shift:[HAS NOT VOIDED YET SP MILLER CATHETER] Patient Status: [stable] Diet: [[facility] MED and CARDIAC DIET] Pending Orders: [] Pending Results/Labs:[] Pending MD notification:[] Latest Vital Signs: Temperature 96.6 , Pulse 70 , B/P 119 /63 , Respiratory Rate 19 , O2 SAT 99 , Room Air, O2 Flow Rate . Vital Sign Comment: [] EKG Rhythm: Sinus Rhythm Rhythm change?: N MD Notified?: - MD Response: Latest Dumont Fall Score: 20 Fall Risk: Low Risk Safety Measures: Call light Within Reach, Bed Alarm Zone 2, Side Rails Side Rails x2, Bed position Low and Locked. Fall Precautions: Yellow Socks Door Sign Patient Fall Education Report given to [HOLLY LOPEZ.
[2020-02-29 08:00] VITALS: BP 166/87
--- NOTE | 2020-02-29 08:00 | NUR ---
NURSE NOTES: Md Duarte was present at bedside and reported troponin trend, stated to let cardiology know, that would be Md Brito. he was also notified of trend.
--- NOTE | 2020-02-29 08:42 | General Progress Note ---
Assessment/Plan Assessment/Plan: Impression: Diabetic ketoacidosis Possible UTI /sepsis Elevated Troponin Hypertensive emergency CHF with elevated BNP Hypokalemia Acute renal failure Dehydration Plan IV Antibiotics Insulin SS ID Consultation Cardiology Consultation Renal Consultation dc fluids ASA/Plavix PPX Monitor labs cardiology clearance Subjective Allergies: Uncoded Allergies: AVOCADOS (Allergy, Unknown, 02/27/20) Subjective wants to go home in good spirits Objective Last 24 Hour Vital Signs Date Time Temp Pulse Resp B/P (MAP) Pulse Ox O2 Delivery O2 Flow Rate FiO2 02/29/20 08:00 99.7 89 20 166/87 (113) 100 02/29/20 07:51 88 02/29/20 04:00 96.6 70 19 119/63 (81) 99 02/29/20 04:00 70 02/29/20 00:00 84 02/28/20 20:19 107 132/80 02/28/20 20:00 99 02/28/20 20:00 98.4 107 20 132/80 (97) 98 02/28/20 18:08 90 145/80 02/28/20 16:00 97.9 84 18 134/74 (94) 100 02/28/20 16:00 84 02/28/20 12:00 85 02/28/20 12:00 97.7 87 20 146/81 (102) 99 02/28/20 11:16 142/85 02/28/20 09:22 97.9 87 18 142/85 (104) 100 Intake and Output 02/28/20 02/29/20 19:00 07:00 Intake Total 720 ml Output Total 850 ml Balance -130 ml Intake Oral 220 ml IV Total 500 ml Output Urine Total 850 ml Laboratory Tests 02/28/20 11:24: POC Whole Blood Glucose 162H 02/28/20 17:38: POC Whole Blood Glucose [Pending] 02/29/20 05:35: White Blood Count 11.9H, Red Blood Count 5.12, Hemoglobin 13.0, Hematocrit 40.2 , Mean Corpuscular Volume 78L, Mean Corpuscular Hemoglobin 25.4L, Mean Corpuscular Hemoglobin Concent 32.3, Red Cell Distribution Width 13.5, Platelet Count 251, Mean Platelet Volume 8.1, Neutrophils (%) (Auto) 67.6, Lymphocytes (% ) (Auto) 25.7, Monocytes (%) (Auto) 5.3, Eosinophils (%) (Auto) 0.9, Basophils ( %) (Auto) 0.5, Sodium Level 136, Potassium Level 4.0, Chloride Level 103, Carbon Dioxide Level 25, Anion Gap 8, Blood Urea Nitrogen 26H, Creatinine 1.2, Estimat Glomerular Filtration Rate 54.7, Glucose Level 97#, Calcium Level 8.5, Phosphorus Level 4.8, Total Bilirubin 0.4, Aspartate Amino Transf (AST/SGOT) 17 , Alanine Aminotransferase (ALT/SGPT) 26, Alkaline Phosphatase 90, Total Creatine Kinase 90, Troponin I 0.352H, Total Protein 7.4, Albumin 3.0L, Globulin 4.4, Albumin/Globulin Ratio 0.7L Height (Feet): 5 Height (Inches): 2.00 Weight (Pounds): 168 Objective WDWN NAD clear breath sounds bilaterally without rhonchi or wheeze [id number] without MRG NABS nontender no HSM no CCE nonfocal Armando Duarte MD Feb 29, 2020 08:41
[2020-02-29] MEDS ORDERED: Lisinopril 20mg tab ORAL SCH (09:00)
[2020-02-29] MEDS: Pantoprazole Inj IVP SCH (09:12)
[2020-02-29] MEDS: Aspirin EC 81mg tab ORAL SCH (09:13)
[2020-02-29] MEDS: Tamsulosin 0.4mg cap ORAL SCH ×2 (09:13→17:17)
[2020-02-29] MEDS: Heparin 5000 units/ml inj SUBQ SCH ×2 (09:19→21:07)
--- NOTE | 2020-02-29 10:17 | NUR ---
NURSE NOTES: pt asked to take a shower, Dr Duarte is aware and ordered ok to take a shower, noted and carried out. will continue to monitor.
[2020-02-29 12:00] VITALS: BP 158/78
--- NOTE | 2020-02-29 13:27 | NUR ---
CASE MANAGEMENT:REVIEW 02/29/20 SI:DKA. ACUTE RENAL FAILURE . ELEVATED TROP . SEPSIS . DEHYDRATION . HYPOKALEMIA TACHYCARDIA . HYPERTENSIVE 99.7 89 20 166/87 100% ON RA TROP 0.352 WBC 11.9 BUN 26 ALB 3.0 IS:IV KPHOS TID LOTENSIN PO Q HEPARIN SQ BID PLAVIX PO QD NORVASC PO QD LASIX PO QD LOPRESSOR PO QD PROTONIX PO QD ASA PO X1 NOVOLOG SQ AC+HS \: TRANSFER TO TELE DCP: HOME WHEN STABLE PLAN: URINE CX~IN PROCESS POST VOID RESIDUAL
--- NOTE | 2020-02-29 15:30 | Consultation ---
DATE OF CONSULTATION: 02/29/2020 INFECTIOUS DISEASES CONSULTATION CONSULTING PHYSICIAN: Curtis Casillas MD. REFERRING PHYSICIAN: Armando Duarte MD. REASON FOR CONSULTATION: Possible gastroenteritis. HISTORY OF PRESENTING ILLNESS: This is a 64-year-old lady with history of diabetes, hypertension, obesity who comes in with nausea, vomiting, abdominal pain, and diarrhea. There is a suspicion for gastroenteritis. An Infectious Diseases consultation has been obtained for antibiotics. PAST MEDICAL HISTORY: 1. History of diabetes. 2. Hypertension. 3. History of previous CVA. SOCIAL HISTORY: She used to be a smoker. She does not smoke anymore. She drinks alcohol. She smokes marijuana. FAMILY HISTORY: Positive for cervical cancer in her mother. REVIEW OF SYSTEMS: RESPIRATORY: No fever, chills, cough, shortness of breath, or chest pain. CARDIAC: No chest pain. No palpitation. No dizziness. No syncope. GASTROINTESTINAL: She has nausea and vomiting. She also has abdominal pain and diarrhea, all of which have improved. MEDICATIONS: As an inpatient, she is on aspirin, clopidogrel, Protonix, ceftriaxone, atorvastatin, subcutaneous heparin, metoprolol, insulin, amlodipine, Flomax, [place], Zofran, Tylenol, Pepto-Bismol, insulin, potassium, benazepril. ALLERGIES: To avocados noted. PHYSICAL EXAMINATION: VITAL SIGNS: Temperature of 99.7, T-max of 99.7, pulse of 89, respiratory rate 20, blood pressure 166/87, O2 saturation of 100% on room air. HEENT: Pupils equally reactive to light and accommodation. Mouth appears clean without thrush. NECK: Supple. No adenopathy. No JVD. CARDIOVASCULAR: Regular rate and rhythm. No murmurs. LUNGS: Clear to auscultation bilaterally. No crackles. No wheezes. ABDOMEN: Soft, nontender. No organomegaly. EXTREMITIES: No cyanosis, no clubbing, no edema. LABORATORY AND DIAGNOSTIC DATA: White count of 19.1 on 02/28/2020, white count 11.9 on 02/29/2020, hemoglobin 13, hematocrit 40.2, MCV 78, platelet count of 251 with neutrophils of 67%. Sodium 136, potassium 4, chloride 103, bicarb 25, BUN 26, creatinine 1.2, glucose 97, calcium 8.5. Total bilirubin 0.4, AST 17, ALT 26, alkaline phosphatase 90. CK of 90. Troponin 0.35. Total protein 7.4. Albumin 3. Lipase of 105. UA showing 0 to 2 white cells. Urine cultures are negative. Rectal swab was negative for VRE. Nasal swab was negative for MRSA. COVID-19 test is negative. Blood cultures are negative. Renal ultrasound is unremarkable with no hydronephrosis. Chest x-ray showing no acute process. ASSESSMENT: This is a 64-year-old lady with history of diabetes, hypertension, CVA who comes in with nausea, vomiting, abdominal pain, and diarrhea and is found to have. 1. Possible gastroenteritis. 2. Symptoms could be secondary to hyperglycemia. 3. Leukocytosis has resolved. 4. COVID-19 test is negative. PLAN: 1. May discontinue ceftriaxone after today's dose. 2. We will follow up patient clinically. 3. We will follow up cultures. I would like to thank, Dr. Duarte, for this consultation. Curtis Casillas M.D. DR: MARILUZ JOB#: [id number] CC: Armando Duarte M.D.; Fax#: [phone]
--- NOTE | 2020-02-29 15:35 | Nephrology Progress Note ---
Assessment/Plan Problem List: (1) Uncontrolled diabetes mellitus (2) Dehydration (3) Acute renal failure (4) Elevated troponin (5) Hypertensive emergency Plan hydraation better , dc iv, titrate bp meds, cardiol reassess troponin elevation Subjective Constitutional: Reports: weakness HEENT: Reports: no symptoms Genitourinary: Reports: no symptoms Neurologic/Psychiatric: Reports: no symptoms Objective Objective Last 24 Hour Vital Signs Date Time Temp Pulse Resp B/P (MAP) Pulse Ox O2 Delivery O2 Flow Rate FiO2 02/29/20 12:00 96.3 82 19 158/78 (104) 97 02/29/20 11:44 94 02/29/20 09:14 89 166/87 02/29/20 09:14 89 166/87 02/29/20 09:13 166/87 02/29/20 09:00 Room Air 02/29/20 08:00 99.7 89 20 166/87 (113) 100 02/29/20 07:51 88 02/29/20 04:00 96.6 70 19 119/63 (81) 99 02/29/20 04:00 70 02/29/20 00:00 84 02/28/20 20:19 107 132/80 02/28/20 20:00 99 02/28/20 20:00 98.4 107 20 132/80 (97) 98 02/28/20 18:08 90 145/80 02/28/20 16:00 97.9 84 18 134/74 (94) 100 02/28/20 16:00 84 Intake and Output 02/28/20 02/29/20 19:00 07:00 Intake Total 720 ml Output Total 850 ml Balance -130 ml Intake Oral 220 ml IV Total 500 ml Output Urine Total 850 ml Laboratory Tests 02/28/20 17:38: POC Whole Blood Glucose [Pending] 02/29/20 05:35: White Blood Count 11.9H, Red Blood Count 5.12, Hemoglobin 13.0, Hematocrit 40.2 , Mean Corpuscular Volume 78L, Mean Corpuscular Hemoglobin 25.4L, Mean Corpuscular Hemoglobin Concent 32.3, Red Cell Distribution Width 13.5, Platelet Count 251, Mean Platelet Volume 8.1, Neutrophils (%) (Auto) 67.6, Lymphocytes (% ) (Auto) 25.7, Monocytes (%) (Auto) 5.3, Eosinophils (%) (Auto) 0.9, Basophils ( %) (Auto) 0.5, Sodium Level 136, Potassium Level 4.0, Chloride Level 103, Carbon Dioxide Level 25, Anion Gap 8, Blood Urea Nitrogen 26H, Creatinine 1.2, Estimat Glomerular Filtration Rate 54.7, Glucose Level 97#, Calcium Level 8.5, Phosphorus Level 4.8, Total Bilirubin 0.4, Aspartate Amino Transf (AST/SGOT) 17 , Alanine Aminotransferase (ALT/SGPT) 26, Alkaline Phosphatase 90, Total Creatine Kinase 90, Troponin I 0.352H, Total Protein 7.4, Albumin 3.0L, Globulin 4.4, Albumin/Globulin Ratio 0.7L Height (Feet): 5 Height (Inches): 2.00 Weight (Pounds): 168 General Appearance: no apparent distress, alert EENT: normal ENT inspection Neck: normal alignment Cardiovascular: regular rhythm Respiratory/Chest: lungs clear Abdomen: non tender, soft Extremities: no edema Neurologic: finisher map and chart II-XII grossly normal Danielito Doan MD Feb 29, 2020 15:35
[2020-02-29 16:00] VITALS: BP 155/81
[2020-02-29] MEDS ORDERED: HydrALAZINE 50mg tab ORAL SCH (18:00)
--- NOTE | 2020-02-29 19:40 | NUR ---
HAND-OFF: Report given to JESSICA Claros. pt is stable, no stress noted. Endorsed plan of care. endorsed pt had x2 voids and endorsed to do post void assessments.
[2020-02-29 20:00] VITALS: BP 140/71
--- NOTE | 2020-02-29 21:00 | NUR ---
NURSE NOTES: Explained to the patient she is to have nothing by mouth after midnight. She requested tuna sandwich and another pitcher of water.
[2020-02-29] MEDS: cefTRIAXone 1 GM in D5W 55 ML IVPB SCH (21:04)
[2020-02-29] MEDS: Atorvastatin 20mg tab ORAL SCH (21:05)
[2020-02-29] MEDS: Levemir Flexpen SUBQ SCH (21:39)
--- NOTE | 2020-02-29 23:31 | Cardiology Progress Note ---
Subjective DATE OF SERVICE: Feb 29, 2020 Troponin still elevated; no c/o chest pain or SOB. She has no CP, bur had chills this evening. Patient now relates recent abnormal myocardial perfusion scan. She was told that she may need cardiac cath in the future. IVF adjusted Insulin adjustments on-going Objective Last 24 Hour Vital Signs Date Time Temp Pulse Resp B/P (MAP) Pulse Ox O2 Delivery O2 Flow Rate FiO2 02/29/20 21:05 78 140/71 02/29/20 20:00 74 02/29/20 20:00 97.5 74 18 140/71 (94) 98 02/29/20 17:19 155/81 02/29/20 17:17 67 155/81 02/29/20 16:00 96.6 67 18 155/81 (105) 97 02/29/20 15:15 65 02/29/20 12:00 96.3 82 19 158/78 (104) 97 02/29/20 11:44 94 02/29/20 09:14 89 166/87 02/29/20 09:14 89 166/87 02/29/20 09:13 166/87 02/29/20 09:00 Room Air 02/29/20 08:00 99.7 89 20 166/87 (113) 100 02/29/20 07:51 88 02/29/20 04:00 96.6 70 19 119/63 (81) 99 02/29/20 04:00 70 02/29/20 00:00 84 RHYTHM: NSR, ST, PACs LUNGS: lungs clear bilaterally CARDIAC: regular rhythm, normal S1 and S2, gallop/S4 ABDOMEN: non tender, soft, no organomegaly EXTREMITIES: non-tender, No edema Laboratory Tests Test 02/29/20 05:17 02/29/20 05:35 02/29/20 11:43 02/29/20 16:31 POC Whole Blood Glucose 115 MG/DL (74-106) H Pending 123 MG/DL (74-106) H White Blood Count 11.9 K/UL (4.8-10.8) H Red Blood Count 5.12 M/UL (4.20-5.40) Hemoglobin 13.0 G/DL (12.0-16.0) Hematocrit 40.2 % (37.0-47.0) Mean Corpuscular Volume 78 FL (80-99) L Mean Corpuscular Hemoglobin 25.4 PG (27.0-31.0) L Mean Corpuscular Hemoglobin Concent 32.3 G/DL (32.0-36.0) Red Cell Distribution Width 13.5 % (11.6-14.8) Platelet Count 251 K/UL (150-450) Mean Platelet Volume 8.1 FL (6.5-10.1) Neutrophils (%) (Auto) 67.6 % (45.0-75.0) Lymphocytes (%) (Auto) 25.7 % (20.0-45.0) Monocytes (%) (Auto) 5.3 % (1.0-10.0) Eosinophils (%) (Auto) 0.9 % (0.0-3.0) Basophils (%) (Auto) 0.5 % (0.0-2.0) Sodium Level 136 MMOL/L (136-145) Potassium Level 4.0 MMOL/L (3.5-5.1) Chloride Level 103 MMOL/L (98-107) Carbon Dioxide Level 25 MMOL/L (21-32) Anion Gap 8 mmol/L (5-15) Blood Urea Nitrogen 26 mg/dL (7-18) H Creatinine 1.2 MG/DL (0.55-1.30) Estimat Glomerular Filtration Rate 54.7 mL/min (>60) Glucose Level 97 MG/DL (74-106) # Calcium Level 8.5 MG/DL (8.5-10.1) Phosphorus Level 4.8 MG/DL (2.5-4.9) Total Bilirubin 0.4 MG/DL (0.2-1.0) Aspartate Amino Transf (AST/SGOT) 17 U/L (15-37) Alanine Aminotransferase (ALT/SGPT) 26 U/L (12-78) Alkaline Phosphatase 90 U/L (46-116) Total Creatine Kinase 90 U/L (26-308) Troponin I 0.352 ng/mL (0.000-0.056) Total Protein 7.4 G/DL (6.4-8.2) Albumin 3.0 G/DL (3.4-5.0) L Globulin 4.4 g/dL Albumin/Globulin Ratio 0.7 (1.0-2.7) L Test 02/29/20 21:34 POC Whole Blood Glucose 164 MG/DL (74-106) H Microbiology Date/Time Source Procedure Growth Status 02/27/20 10:10 Blood Blood Culture - Preliminary NO GROWTH AFTER 24 HOURS Resulted 02/27/20 10:10 Blood Blood Culture - Preliminary NO GROWTH AFTER 24 HOURS Resulted 02/27/20 13:25 Nasal Nares MRSA Culture - Final NO METHICILLIN RESISTANT STAPH AUREUS... Complete 02/27/20 11:00 Nasopharynx SARS-CoV-2 RdRp Gene Assay - Final Complete 02/28/20 11:28 Indwelling Cath Urine Culture - Preliminary NO GROWTH Resulted 02/27/20 13:25 Rectum VRE Culture - Final NO VANCOMYCIN RESISTANT ENTEROCOCCUS ... Complete Assessment/Plan Assessment/Plan DKA Acute myocardial infarction Hypertension/HHD Chronic diastolic CHF UTI with sepsis Hypovolemia Hypokalemia Hypophosphatemia IVF Antiplatelet therapy Titrate insulin Titrate antiHTN and anti-anginal regimen Replace K/Phos as needed check lipid panel Will schedule outpatient cardiac cath Federico Brito MD Feb 29, 2020 23:31
[2020-03-01] VITALS (8 sets, daily range): BP systolic 141–200; BP diastolic 67–102
--- NOTE | 2020-03-01 00:25 | NUR ---
NURSE NOTES: Notified Dr. Duarte regarding BP: 188/90 and complaints of aching abdominal pain 12/29. Awaiting Dr. Duarte's response.
--- NOTE | 2020-03-01 00:35 | NUR ---
NURSE NOTES: Called Dr. Duarte and reached voicemail. Left a text message.
--- NOTE | 2020-03-01 00:53 | NUR ---
NURSE NOTES: Left a voicemail for Dr. Brito regarding BP: 190/100. Awaiting Dr. Henry's order.
--- NOTE | 2020-03-01 01:07 | NUR ---
NURSE NOTES: Called Berenice Roberson, regarding unavailable pepto-bismol.
--- NOTE | 2020-03-01 01:10 | NUR ---
NURSE NOTES: Pharmacist states "pepto-bismul is not available on our end either".
--- NOTE | 2020-03-01 01:23 | NUR ---
NURSE NOTES: Left a voicemail for Dr. Brito regarding BP. Awaiting Dr. Brito's response.
[2020-03-01] MEDS ORDERED: HydrALAZINE 25mg tab ORAL PRN (01:45)
[2020-03-01 06:27] LABS: HEMATOCRIT 43.3 % (37.0-47.0); MEAN CORPUSCULAR VOLUME 78 FL (80-99); PLATELET COUNT 258 K/UL (150-450); RED BLOOD COUNT 5.53 M/UL (4.20-5.40); RED CELL DISTRIBUTION WIDTH 13.3 % (11.6-14.8); WHITE BLOOD COUNT 10.3 K/UL (4.8-10.8)
[2020-03-01] MEDS: NovoLOG Insulin Flexpen SUBQ SCH ×8 (06:30→21:00)
[2020-03-01 07:00] LABS: ALANINE AMINOTRANSFERASE 21 U/L (12-78); ALBUMIN 3.5 G/DL (3.4-5.0); ALBUMIN/GLOBULIN RATIO 0.7 (1.0-2.7); ALKALINE PHOSPHATASE 106 U/L (46-116); ANION GAP 11 mmol/L (5-15); ASPARTATE AMINO TRANSFERASE 16 U/L (15-37); BILIRUBIN,TOTAL 0.3 MG/DL (0.2-1.0); BLOOD UREA NITROGEN 19 mg/dL (7-18); CARBON DIOXIDE 25 MMOL/L (21-32); CHLORIDE 99 MMOL/L (98-107); POTASSIUM 3.9 MMOL/L (3.5-5.1); SODIUM 135 MMOL/L (136-145)
--- NOTE | 2020-03-01 07:02 | NUR ---
HAND-OFF: Report given to JESSICA Jansen. Patient in stable condition, plan of care endorsed.
[2020-03-01 07:09] LABS: APPEARANCE,URINE CLEAR; BILIRUBIN, URINE NEGATIVE (NEGATIVE); COLOR,URINE PALE YELLOW; GLUCOSE, URINE (UA) 2+ (NEGATIVE); KETONES,URINE 1+ (NEGATIVE); LEUKOCYTE ESTERASE ,URINE NEGATIVE (NEGATIVE); NITRITE,URINE NEGATIVE (NEGATIVE); PH,URINE 7 (4.5-8.0); PROTEIN,URINE 1+ (NEGATIVE); UROBILINOGEN,URINE NORMAL MG/DL (0.0-1.0)
--- NOTE | 2020-03-01 07:16 | General Progress Note ---
Assessment/Plan Assessment/Plan: Impression: Diabetic ketoacidosis Possible UTI /sepsis Elevated Troponin Hypertensive emergency CHF with elevated BNP Hypokalemia Acute renal failure Dehydration CAD possible Plan IV Antibiotics- dc today Insulin SS ID to see GI to see Cardiology Consultation Renal Consultation dc fluids ASA/Plavix PPX Monitor labs cardiology clearance Subjective Allergies: Uncoded Allergies: AVOCADOS (Allergy, Unknown, 02/27/20) Subjective abnormal scan in good spirits Objective Last 24 Hour Vital Signs Date Time Temp Pulse Resp B/P (MAP) Pulse Ox O2 Delivery O2 Flow Rate FiO2 03/01/20 06:00 145/74 (97) 03/01/20 04:00 90 03/01/20 04:00 97.9 90 20 180/82 (114) 98 03/01/20 01:41 200/102 03/01/20 01:20 200/102 (134) 03/01/20 00:48 97.5 03/01/20 00:00 99.1 90 20 170/77 (108) 98 03/01/20 00:00 90 02/29/20 21:05 78 140/71 02/29/20 21:00 Room Air 02/29/20 20:00 74 02/29/20 20:00 97.5 74 18 140/71 (94) 98 02/29/20 17:19 155/81 02/29/20 17:17 67 155/81 02/29/20 16:00 96.6 67 18 155/81 (105) 97 02/29/20 15:15 65 02/29/20 12:00 96.3 82 19 158/78 (104) 97 02/29/20 11:44 94 02/29/20 09:14 89 166/87 02/29/20 09:14 89 166/87 02/29/20 09:13 166/87 02/29/20 09:00 Room Air 02/29/20 08:00 99.7 89 20 166/87 (113) 100 02/29/20 07:51 88 Intake and Output 02/29/20 03/01/20 19:00 07:00 Intake Total 140 ml Balance 140 ml Intake Oral 140 ml Bladder Scan Volume Amount 11-30 ml > 300 ml <10 ml Laboratory Tests 02/29/20 11:43: POC Whole Blood Glucose [Pending] 02/29/20 16:31: POC Whole Blood Glucose 123H 02/29/20 21:34: POC Whole Blood Glucose 164H 03/01/20 04:50: Urine Color [Pending], Urine Appearance [Pending], Urine pH [Pending], Urine Specific [place] [Pending], Urine Protein [Pending], Urine Glucose (UA) [Pending ], Urine Ketones [Pending], Urine Blood [Pending], Urine Nitrite [Pending], Urine Bilirubin [Pending], Urine Urobilinogen [Pending], Urine Leukocyte Esterase [Pending] 03/01/20 05:33: White Blood Count [Pending], Red Blood Count [Pending], Hemoglobin [Pending], Hematocrit [Pending], Mean Corpuscular Volume [Pending], Mean Corpuscular Hemoglobin [Pending], Mean Corpuscular Hemoglobin Concent [Pending], Red Cell Distribution Width [Pending], Platelet Count [Pending], Mean Platelet Volume [ Pending], Neutrophils (%) (Auto) [Pending], Lymphocytes (%) (Auto) [Pending], Monocytes (%) (Auto) [Pending], Eosinophils (%) (Auto) [Pending], Basophils (%) (Auto) [Pending], Sodium Level [Pending], Potassium Level [Pending], Chloride Level [Pending], Carbon Dioxide Level [Pending], Blood Urea Nitrogen [Pending], Creatinine [Pending], Estimat Glomerular Filtration Rate [Pending], Glucose Level [Pending], Calcium Level [Pending], Total Bilirubin [Pending], Aspartate Amino Transf (AST/SGOT) [Pending], Alanine Aminotransferase (ALT/SGPT) [Pending] , Alkaline Phosphatase [Pending], Total Creatine Kinase [Pending], Troponin I [ Pending], Total Protein [Pending], Albumin [Pending], Globulin [Pending], Triglycerides Level [Pending], Cholesterol Level [Pending], LDL Cholesterol [ Pending], HDL Cholesterol [Pending], Cholesterol/HDL Ratio [Pending] 03/01/20 06:27: POC Whole Blood Glucose 223H Height (Feet): 5 Height (Inches): 2.00 Weight (Pounds): 168 Objective WDWN NAD clear breath sounds bilaterally without rhonchi or wheeze [id number] without MRG NABS nontender no HSM no CCE nonfocal Armando Duarte MD Mar 01, 2020 07:16
--- NOTE | 2020-03-01 07:30 | NUR ---
NURSE NOTES: Received pt from Hyacinth LOPEZ, Pt is awake and alert, pt is in RA, no SOB or acute respiratory distress noted. pt is on continues heart monitoring, pt has intact iv access RH 22G SL. pt has Salazar cath in place is working well. Dr Brito is aware about troponin 0.133 no new order to RN. pt is NPO due to stress test today. No complain of pain at this moment. all needs attended, bed is locked and is in the lowest position, call light within easy reach. will continue to monitor.
[2020-03-01 07:42] LABS: CHOLESTEROL 195 MG/DL (< 200); CREATINE KINASE 95 U/L (26-308); HDL CHOLESTEROL 56 MG/DL (40-60); TRIGLYCERIDES 78 MG/DL (30-150)
--- NOTE | 2020-03-01 08:04 | NUR ---
RD ASSESSMENT & RECOMMENDATIONS SEE CARE ACTIVITY FOR COMPLETE ASSESSMENT DAILY ESTIMATED NEEDS: Needs based on DM, cardiac/ 55kg abw 25-30kcal/kg kcals/kg 1363- 1650 total kcals 1.0-1.3g/kg g protein/kg 55-72g g total protein 25-30 mL/kg 4400-5862 total fluid mLs NUTRITION DIAGNOSIS: (1) Altered nutrition related lab levels R/T uncontrolled diabetes , HTN as evidenced by BG 439 upon adm, elev POC (164 123 164 115 178), A1C 7.7, Uglu 4+ and U ketones 2+ upon adm, elev BPs (242/130 upon adm -> 145/74, 180/82) CURRENT DIET:[facility] MED PO DIET RECOMMENDATIONS: CCHO LOW, LOW NA ADDITIONAL RECOMMENDATIONS: 1) standing wt for accurate CBW 2) Monitor closely for hypoglycemia w/ variable intake and increased insulin regimen 3) Monitor for hyperglycemia, need for insulin adjustment 4) Monitor lytes, replete as needed
[2020-03-01] MEDS ORDERED: Lexiscan 0.4mg/5ml syringe IV PRN (09:00)
[2020-03-01] MEDS: Tamsulosin 0.4mg cap ORAL SCH ×2 (09:45→17:07)
[2020-03-01] MEDS: HydrALAZINE 50mg tab ORAL SCH ×3 (09:45→17:08)
[2020-03-01] MEDS: Pantoprazole Inj IVP SCH (09:45)
[2020-03-01] MEDS: Heparin 5000 units/ml inj SUBQ SCH ×2 (09:46→21:04)
[2020-03-01] MEDS: Aspirin EC 81mg tab ORAL SCH (09:46)
--- NOTE | 2020-03-01 11:10 | Infectious Diseases Prog Note ---
Assessment/Plan Assessment/Plan antibiotics : ceftriaxone A 1. Possible gastroenteritis. 2. Symptoms could be secondary to hyperglycemia. 3. Leukocytosis has resolved. 4. COVID-19 test is negative. P 1. d/c ceftriaxone 2. will follow up cultures1. Subjective Constitutional: Denies: fever, chills Respiratory: Reports: shortness of breath, dry cough Gastrointestinal/Abdominal: Denies: nausea, diarrhea Musculoskeletal: Reports: pain - abdominal Allergies: Uncoded Allergies: AVOCADOS (Allergy, Unknown, 02/27/20) Objective Last 24 Hour Vital Signs Date Time Temp Pulse Resp B/P (MAP) Pulse Ox O2 Delivery O2 Flow Rate FiO2 03/01/20 09:45 141/81 03/01/20 09:45 141/81 03/01/20 09:45 79 141/81 03/01/20 09:00 79 141/81 03/01/20 08:00 98.6 79 20 141/81 (101) 100 03/01/20 07:43 76 03/01/20 06:00 145/74 (97) 03/01/20 04:00 90 03/01/20 04:00 97.9 90 20 180/82 (114) 98 03/01/20 01:41 200/102 03/01/20 01:20 200/102 (134) 03/01/20 00:48 97.5 03/01/20 00:00 99.1 90 20 170/77 (108) 98 03/01/20 00:00 90 02/29/20 21:05 78 140/71 02/29/20 21:00 Room Air 02/29/20 20:00 74 02/29/20 20:00 97.5 74 18 140/71 (94) 98 02/29/20 17:19 155/81 02/29/20 17:17 67 155/81 02/29/20 16:00 96.6 67 18 155/81 (105) 97 02/29/20 15:15 65 02/29/20 12:00 96.3 82 19 158/78 (104) 97 02/29/20 11:44 94 Height (Feet): 5 Height (Inches): 2.00 Weight (Pounds): 168 Respiratory/Chest: lungs clear Cardiovascular: normal rate, regular rhythm, no gallop/murmur Abdomen: soft, non tender Extremities: no edema Microbiology Date/Time Source Procedure Growth Status 02/27/20 13:25 Nasal Nares MRSA Culture - Final NO METHICILLIN RESISTANT STAPH AUREUS... Complete 02/28/20 11:28 Indwelling Cath Urine Culture - Preliminary NO GROWTH AFTER 24 HOURS Resulted 02/27/20 13:25 Rectum - Final NO CARBAPENEM-RESISTANT ENTEROBACTERI... Complete 02/27/20 13:25 Rectum VRE Culture - Final NO VANCOMYCIN RESISTANT ENTEROCOCCUS ... Complete Laboratory Tests Test 02/29/20 11:43 02/29/20 16:31 02/29/20 21:34 03/01/20 02:00 POC Whole Blood Glucose Pending 123 MG/DL (74-106) H 164 MG/DL (74-106) H 182 MG/DL (74-106) H Test 03/01/20 04:50 03/01/20 05:33 03/01/20 06:27 Urine Color Pale yellow Urine Appearance Clear Urine pH 7 (4.5-8.0) Urine Specific [place] 1.005 (1.005-1.035) Urine Protein 1+ (NEGATIVE) H Urine Glucose (UA) 2+ (NEGATIVE) H Urine Ketones 1+ (NEGATIVE) H Urine Blood 2+ (NEGATIVE) H Urine Nitrite Negative (NEGATIVE) Urine Bilirubin Negative (NEGATIVE) Urine Urobilinogen Normal MG/DL (0.0-1.0) Urine Leukocyte Esterase Negative (NEGATIVE) Urine RBC 2-4 /HPF (0 - 2) H Urine WBC 0 /HPF (0 - 2) Urine Squamous Epithelial Cells Occasional /LPF Urine Bacteria Few /HPF (NONE) White Blood Count 10.3 K/UL (4.8-10.8) Red Blood Count 5.53 M/UL (4.20-5.40) H Hemoglobin 14.0 G/DL (12.0-16.0) Hematocrit 43.3 % (37.0-47.0) Mean Corpuscular Volume 78 FL (80-99) L Mean Corpuscular Hemoglobin 25.3 PG (27.0-31.0) L Mean Corpuscular Hemoglobin Concent 32.4 G/DL (32.0-36.0) Red Cell Distribution Width 13.3 % (11.6-14.8) Platelet Count 258 K/UL (150-450) Mean Platelet Volume 8.1 FL (6.5-10.1) Neutrophils (%) (Auto) % (45.0-75.0) Lymphocytes (%) (Auto) % (20.0-45.0) Monocytes (%) (Auto) % (1.0-10.0) Eosinophils (%) (Auto) % (0.0-3.0) Basophils (%) (Auto) % (0.0-2.0) Neutrophils % (Manual) Pending Lymphocytes % (Manual) Pending Platelet Estimate Pending Platelet Morphology Pending Sodium Level 135 MMOL/L (136-145) L Potassium Level 3.9 MMOL/L (3.5-5.1) Chloride Level 99 MMOL/L (98-107) Carbon Dioxide Level 25 MMOL/L (21-32) Anion Gap 11 mmol/L (5-15) Blood Urea Nitrogen 19 mg/dL (7-18) H Creatinine 1.0 MG/DL (0.55-1.30) Estimat Glomerular Filtration Rate > 60 mL/min (>60) Glucose Level 224 MG/DL (74-106) #H Calcium Level 9.0 MG/DL (8.5-10.1) Total Bilirubin 0.3 MG/DL (0.2-1.0) Aspartate Amino Transf (AST/SGOT) 16 U/L (15-37) Alanine Aminotransferase (ALT/SGPT) 21 U/L (12-78) Alkaline Phosphatase 106 U/L (46-116) Total Creatine Kinase 95 U/L (26-308) Troponin I 0.133 ng/mL (0.000-0.056) Total Protein 8.3 G/DL (6.4-8.2) H Albumin 3.5 G/DL (3.4-5.0) Globulin 4.8 g/dL Albumin/Globulin Ratio 0.7 (1.0-2.7) L Triglycerides Level 78 MG/DL (30-150) Cholesterol Level 195 MG/DL (< 200) LDL Cholesterol 121 mg/dL (<100) H HDL Cholesterol 56 MG/DL (40-60) Cholesterol/HDL Ratio 3.5 (3.3-4.4) POC Whole Blood Glucose 223 MG/DL (74-106) H Current Medications Medications (Trade) Dose Ordered Sig/Xi Route PRN Reason Start Time Stop Time Status Last Admin Dose Admin Acetaminophen (Tylenol) 650 mg Q6H PRN ORAL mild pain(1-3) 02/28/20 13:00 03/28/20 12:59 Acetaminophen/ Hydrocodone Bitart (Boyce 5/325) 1 tab Q6H PRN ORAL Moderate Pain (Pain Scale 4-6) 02/28/20 14:30 03/05/20 14:29 03/01/20 00:18 Amlodipine Besylate (Norvasc) 5 mg BID ORAL 02/28/20 18:00 03/28/20 17:59 03/01/20 09:45 Aspirin (Ecotrin) 81 mg DAILY ORAL 02/29/20 09:00 04/12/20 18:14 03/01/20 09:46 Atorvastatin Calcium (Lipitor) 20 mg BEDTIME ORAL 02/28/20 21:00 05/27/20 20:59 02/29/20 21:05 Benazepril HCl (Lotensin) 40 mg DAILY ORAL 02/28/20 10:30 03/29/20 10:29 03/01/20 09:45 Bismuth Subsalicylate (Pepto-Bismol) 30 ml Q3H PRN ORAL upset stomach 02/28/20 12:15 04/13/20 00:14 Ceftriaxone Sodium 1 gm/ Dextrose 55 ml @ 110 mls/hr Q24H IVPB 02/28/20 21:00 03/05/20 20:59 02/29/20 21:04 Clopidogrel Bisulfate (Plavix) 75 mg DAILY ORAL 02/29/20 09:00 03/29/20 08:59 03/01/20 09:45 Dextrose (Dextrose 50%) 25 ml Q30M PRN IV HYPOGLYCEMIA 02/28/20 10:30 05/27/20 14:59 Dextrose (Dextrose 50%) 50 ml Q30M PRN IV HYPOGLYCEMIA 02/28/20 10:30 05/27/20 14:59 Heparin Sodium (Porcine) (Heparin 5000 units/ml) 5,000 units EVERY 12 HOURS SUBQ 02/28/20 21:00 04/12/20 20:59 03/01/20 09:46 Hydralazine HCl (Apresoline) 25 mg Q6H PRN ORAL SBP above 160 03/01/20 01:45 05/30/20 01:44 03/01/20 01:41 Hydralazine HCl (Apresoline) 50 mg TID ORAL 03/01/20 09:00 05/30/20 08:59 03/01/20 09:45 Insulin Aspart (NovoLOG) 14 units NOVOTIAC SUBQ 02/28/20 11:50 05/28/20 11:49 02/29/20 11:48 Insulin Aspart (NovoLOG) No Dose BEFORE MEALS AND HS SUBQ 02/28/20 21:00 05/28/20 11:29 03/01/20 06:34 Insulin Detemir (Levemir) 40 units BEDTIME SUBQ 02/28/20 21:00 05/28/20 20:59 02/29/20 21:39 Metoprolol Tartrate (Lopressor) 25 mg Q12HR ORAL 02/29/20 21:00 05/29/20 20:59 02/29/20 21:05 Ondansetron HCl (Zofran) 4 mg Q6H PRN IVP Nausea & Vomiting 02/28/20 14:30 03/28/20 14:29 Pantoprazole (Protonix) 40 mg DAILY IVP 02/29/20 09:00 03/29/20 08:59 03/01/20 09:45 Tamsulosin HCl (Flomax) 0.4 mg BID ORAL 02/28/20 18:00 03/29/20 17:59 03/01/20 09:45 Curtis Casillas MD Mar 01, 2020 11:10
[2020-03-01] MEDS ORDERED: Milk of Magnesia 30ml Ud ORAL PRN (13:15)
[2020-03-01] MEDS ORDERED: Milk of Magnesia 30ml Ud ORAL SCH (13:15)
[2020-03-01] MEDS ORDERED: Bisacodyl EC 5mg tab ORAL SCH (13:15)
[2020-03-01] MEDS: Docusate 100mg cap ORAL SCH ×2 (13:34→17:08)
--- NOTE | 2020-03-01 17:07 | NUR ---
CASE MANAGEMENT: REVIEW SI: POSSIBLE GASTROENTERITIS . DKA . CHF T 100.4 HR 81 RR 18 BP 146/81 SAT 100% BP 200/102 GLUCOSE 224 IS: HYDRALAZINE 50MG PO TID CEFTRIAXONE IV Q24HR LEXISCAN IV X1 TELEMETRY UNIT STATUS DCP: PATIENT IS FROM HOME
--- NOTE | 2020-03-01 17:13 | NUR ---
*-* INSURANCE *-* UPDATED CLINICALS AND REVIEWS HAVE BEEN FAXED TO: CECILLE Heck/RAYA [phone] FAX:[phone] FAX:[phone]
--- NOTE | 2020-03-01 18:48 | Nephrology Progress Note ---
Assessment/Plan Problem List: (1) Uncontrolled diabetes mellitus (2) Dehydration (3) Acute renal failure (4) Elevated troponin (5) Hypertensive emergency (6) Urinary retention Plan hydration better , dc iv, titrate bp meds, cardiol reassess troponin elevation, urinary ml, now with cutler would keep about 48 hr prior to voiding trial Subjective Constitutional: Reports: weakness HEENT: Reports: no symptoms Genitourinary: Reports: other - urinary retention Neurologic/Psychiatric: Reports: no symptoms Objective Objective Last 24 Hour Vital Signs Date Time Temp Pulse Resp B/P (MAP) Pulse Ox O2 Delivery O2 Flow Rate FiO2 03/01/20 17:08 146/81 03/01/20 17:08 81 146/81 03/01/20 16:00 100.4 81 18 146/81 (102) 100 03/01/20 15:37 80 03/01/20 13:34 148/79 03/01/20 12:00 99.9 85 20 148/79 (102) 100 03/01/20 11:44 83 03/01/20 09:45 141/81 03/01/20 09:45 141/81 03/01/20 09:45 79 141/81 03/01/20 09:00 Room Air 03/01/20 09:00 79 141/81 03/01/20 08:00 98.6 79 20 141/81 (101) 100 03/01/20 07:43 76 03/01/20 06:00 145/74 (97) 03/01/20 04:00 90 03/01/20 04:00 97.9 90 20 180/82 (114) 98 03/01/20 01:41 200/102 03/01/20 01:20 200/102 (134) 03/01/20 00:48 97.5 03/01/20 00:00 99.1 90 20 170/77 (108) 98 03/01/20 00:00 90 02/29/20 21:05 78 140/71 02/29/20 21:00 Room Air 02/29/20 20:00 74 02/29/20 20:00 97.5 74 18 140/71 (94) 98 Intake and Output 02/29/20 03/01/20 19:00 07:00 Intake Total 140 ml Balance 140 ml Intake Oral 140 ml Bladder Scan Volume Amount 11-30 ml > 300 ml <10 ml Laboratory Tests 02/29/20 21:34: POC Whole Blood Glucose 164H 03/01/20 02:00: POC Whole Blood Glucose 182H 03/01/20 04:50: Urine Color Pale yellow, Urine Appearance Clear, Urine pH 7, Urine Specific [place] 1.005, Urine Protein 1+H, Urine Glucose (UA) 2+H, Urine Ketones 1+H, Urine Blood 2+H, Urine Nitrite Negative, Urine Bilirubin Negative, Urine Urobilinogen Normal, Urine Leukocyte Esterase Negative, Urine RBC 2-4H, Urine WBC 0, Urine Squamous Epithelial Cells Occasional, Urine Bacteria Few 03/01/20 05:33: White Blood Count 10.3, Red Blood Count 5.53H, Hemoglobin 14.0, Hematocrit 43.3 , Mean Corpuscular Volume 78L, Mean Corpuscular Hemoglobin 25.3L, Mean Corpuscular Hemoglobin Concent 32.4, Red Cell Distribution Width 13.3, Platelet Count 258, Mean Platelet Volume 8.1, Neutrophils (%) (Auto) , Lymphocytes (%) ( Auto) , Monocytes (%) (Auto) , Eosinophils (%) (Auto) , Basophils (%) (Auto) , Differential Total Cells Counted 100, Neutrophils % (Manual) 86H, Lymphocytes % (Manual) 11L, Monocytes % (Manual) 3, Eosinophils % (Manual) 0, Basophils % ( Manual) 0, Band Neutrophils 0, Platelet Estimate Adequate, Platelet Morphology Normal, Microcytosis 2+, Sodium Level 135L, Potassium Level 3.9, Chloride Level 99, Carbon Dioxide Level 25, Anion Gap 11, Blood Urea Nitrogen 19H, Creatinine 1.0, Estimat Glomerular Filtration Rate > 60, Glucose Level 224#H, Calcium Level 9.0, Total Bilirubin 0.3, Aspartate Amino Transf (AST/SGOT) 16, Alanine Aminotransferase (ALT/SGPT) 21, Alkaline Phosphatase 106, Total Creatine Kinase 95, Troponin I 0.133H, Total Protein 8.3H, Albumin 3.5, Globulin 4.8, Albumin/ Globulin Ratio 0.7L, Triglycerides Level 78, Cholesterol Level 195, LDL Cholesterol 121H, HDL Cholesterol 56, Cholesterol/HDL Ratio 3.5 03/01/20 06:27: POC Whole Blood Glucose 223H 03/01/20 11:33: POC Whole Blood Glucose 155H 03/01/20 16:30: POC Whole Blood Glucose 176H Height (Feet): 5 Height (Inches): 2.00 Weight (Pounds): 168 General Appearance: no apparent distress, alert EENT: normal ENT inspection Neck: normal alignment Cardiovascular: regular rhythm Respiratory/Chest: lungs clear Abdomen: soft Extremities: no edema Neurologic: rubber curer II-XII grossly normal Danielito Doan MD Mar 01, 2020 18:48
--- NOTE | 2020-03-01 19:17 | NUR ---
NURSE NOTES: Pt alert and oriented x4 with no acute s/s of distress noted. On room air. Lacquer Mixer on - Sinus Rhythm. Salazar catheter intact and draining to clear and yellow urine. Bed in lowest position, call light and belongings within reach.
--- NOTE | 2020-03-01 19:21 | Cardiology Progress Note ---
Subjective DATE OF SERVICE: Mar 01, 2020 Troponin coming down; no c/o chest pain or SOB. She has no CP, but had chills last evening. Today, she is having fevers. BP parameters remain labile at time. Patient now relates recent abnormal myocardial perfusion scan prior to admission. She was told that she may need cardiac cath in the future. IVF adjusted Insulin adjustments on-going HDL 56 - LDL 121 Objective Last 24 Hour Vital Signs Date Time Temp Pulse Resp B/P (MAP) Pulse Ox O2 Delivery O2 Flow Rate FiO2 03/01/20 17:08 146/81 03/01/20 17:08 81 146/81 03/01/20 16:00 100.4 81 18 146/81 (102) 100 03/01/20 15:37 80 03/01/20 13:34 148/79 03/01/20 12:00 99.9 85 20 148/79 (102) 100 03/01/20 11:44 83 03/01/20 09:45 141/81 03/01/20 09:45 141/81 03/01/20 09:45 79 141/81 03/01/20 09:00 Room Air 03/01/20 09:00 79 141/81 03/01/20 08:00 98.6 79 20 141/81 (101) 100 03/01/20 07:43 76 03/01/20 06:00 145/74 (97) 03/01/20 04:00 90 03/01/20 04:00 97.9 90 20 180/82 (114) 98 03/01/20 01:41 200/102 03/01/20 01:20 200/102 (134) 03/01/20 00:48 97.5 03/01/20 00:00 99.1 90 20 170/77 (108) 98 03/01/20 00:00 90 02/29/20 21:05 78 140/71 02/29/20 21:00 Room Air 02/29/20 20:00 74 02/29/20 20:00 97.5 74 18 140/71 (94) 98 RHYTHM: NSR, ST, PACs LUNGS: lungs clear bilaterally CARDIAC: regular rhythm, normal S1 and S2, gallop/S4 ABDOMEN: non tender, soft, no organomegaly EXTREMITIES: non-tender, No edema Laboratory Tests Test 02/29/20 21:34 03/01/20 02:00 03/01/20 04:50 03/01/20 05:33 POC Whole Blood Glucose 164 MG/DL (74-106) H 182 MG/DL (74-106) H Urine Color Pale yellow Urine Appearance Clear Urine pH 7 (4.5-8.0) Urine Specific [place] 1.005 (1.005-1.035) Urine Protein 1+ (NEGATIVE) H Urine Glucose (UA) 2+ (NEGATIVE) H Urine Ketones 1+ (NEGATIVE) H Urine Blood 2+ (NEGATIVE) H Urine Nitrite Negative (NEGATIVE) Urine Bilirubin Negative (NEGATIVE) Urine Urobilinogen Normal MG/DL (0.0-1.0) Urine Leukocyte Esterase Negative (NEGATIVE) Urine RBC 2-4 /HPF (0 - 2) H Urine WBC 0 /HPF (0 - 2) Urine Squamous Epithelial Cells Occasional /LPF Urine Bacteria Few /HPF (NONE) White Blood Count 10.3 K/UL (4.8-10.8) Red Blood Count 5.53 M/UL (4.20-5.40) H Hemoglobin 14.0 G/DL (12.0-16.0) Hematocrit 43.3 % (37.0-47.0) Mean Corpuscular Volume 78 FL (80-99) L Mean Corpuscular Hemoglobin 25.3 PG (27.0-31.0) L Mean Corpuscular Hemoglobin Concent 32.4 G/DL (32.0-36.0) Red Cell Distribution Width 13.3 % (11.6-14.8) Platelet Count 258 K/UL (150-450) Mean Platelet Volume 8.1 FL (6.5-10.1) Neutrophils (%) (Auto) % (45.0-75.0) Lymphocytes (%) (Auto) % (20.0-45.0) Monocytes (%) (Auto) % (1.0-10.0) Eosinophils (%) (Auto) % (0.0-3.0) Basophils (%) (Auto) % (0.0-2.0) Differential Total Cells Counted 100 Neutrophils % (Manual) 86 % (45-75) H Lymphocytes % (Manual) 11 % (20-45) L Monocytes % (Manual) 3 % (1-10) Eosinophils % (Manual) 0 % (0-3) Basophils % (Manual) 0 % (0-2) Band Neutrophils 0 % (0-8) Platelet Estimate Adequate Platelet Morphology Normal Microcytosis 2+ Sodium Level 135 MMOL/L (136-145) L Potassium Level 3.9 MMOL/L (3.5-5.1) Chloride Level 99 MMOL/L (98-107) Carbon Dioxide Level 25 MMOL/L (21-32) Anion Gap 11 mmol/L (5-15) Blood Urea Nitrogen 19 mg/dL (7-18) H Creatinine 1.0 MG/DL (0.55-1.30) Estimat Glomerular Filtration Rate > 60 mL/min (>60) Glucose Level 224 MG/DL (74-106) #H Calcium Level 9.0 MG/DL (8.5-10.1) Total Bilirubin 0.3 MG/DL (0.2-1.0) Aspartate Amino Transf (AST/SGOT) 16 U/L (15-37) Alanine Aminotransferase (ALT/SGPT) 21 U/L (12-78) Alkaline Phosphatase 106 U/L (46-116) Total Creatine Kinase 95 U/L (26-308) Troponin I 0.133 ng/mL (0.000-0.056) Total Protein 8.3 G/DL (6.4-8.2) H Albumin 3.5 G/DL (3.4-5.0) Globulin 4.8 g/dL Albumin/Globulin Ratio 0.7 (1.0-2.7) L Triglycerides Level 78 MG/DL (30-150) Cholesterol Level 195 MG/DL (< 200) LDL Cholesterol 121 mg/dL (<100) H HDL Cholesterol 56 MG/DL (40-60) Cholesterol/HDL Ratio 3.5 (3.3-4.4) Test 03/01/20 06:27 03/01/20 11:33 03/01/20 16:30 POC Whole Blood Glucose 223 MG/DL (74-106) H 155 MG/DL (74-106) H 176 MG/DL (74-106) H Microbiology Date/Time Source Procedure Growth Status 02/28/20 11:28 Indwelling Cath Urine Culture - Preliminary NO GROWTH AFTER 24 HOURS Resulted Assessment/Plan Assessment/Plan DKA Acute myocardial infarction Hypertension/HHD Chronic diastolic CHF UTI with sepsis Hypovolemia Hypokalemia Hypophosphatemia Dyslipidemia IVF Fever work-up Antiplatelet therapy Titrate insulin Titrate antiHTN and anti-anginal regimen Replace K/Phos as needed Continue statin rx Will schedule outpatient cardiac cath Federico Brito MD Mar 01, 2020 19:21
--- NOTE | 2020-03-01 19:42 | NUR ---
NURSE HAND-OFF REPORT: Important Events on Shift: Patient Status: Diet: Pending Orders: Pending Results/Labs: Pending MD notification: Latest Vital Signs: Temperature 100.4 , Pulse 81 , B/P 146 /81 , Respiratory Rate 18 , O2 SAT 100 , Room Air, O2 Flow Rate . Vital Sign Comment: EKG Rhythm: Sinus Rhythm Rhythm change?: N MD Notified?: - MD Response: Latest Dumont Fall Score: 20 Fall Risk: Low Risk Safety Measures: Call light Within Reach, Bed Alarm Zone 2, Side Rails Side Rails x2, Bed position Low and Locked. Fall Precautions: Yellow Socks Door Sign Patient Fall Education Report given to . Pt is stable, no stress noted. endorsed plan of care.
[2020-03-01] MEDS: Atorvastatin 20mg tab ORAL SCH (21:00)
[2020-03-01] MEDS: Levemir Flexpen SUBQ SCH (21:00)
[2020-03-01] MEDS: Metoprolol Tartrate 50mg tab ORAL SCH (21:00)
--- NOTE | 2020-03-01 21:54 | General Progress Note ---
Subjective Allergies: Uncoded Allergies: AVOCADOS (Allergy, Unknown, 02/27/20) Objective Last 24 Hour Vital Signs Date Time Temp Pulse Resp B/P (MAP) Pulse Ox O2 Delivery O2 Flow Rate FiO2 03/01/20 21:00 97 149/81 03/01/20 21:00 Room Air 03/01/20 20:00 99.8 97 18 149/67 (94) 99 03/01/20 17:08 146/81 03/01/20 17:08 81 146/81 03/01/20 16:00 100.4 81 18 146/81 (102) 100 03/01/20 15:37 80 03/01/20 13:34 148/79 03/01/20 12:00 99.9 85 20 148/79 (102) 100 03/01/20 11:44 83 03/01/20 09:45 141/81 03/01/20 09:45 141/81 03/01/20 09:45 79 141/81 03/01/20 09:00 Room Air 03/01/20 09:00 79 141/81 03/01/20 08:00 98.6 79 20 141/81 (101) 100 03/01/20 07:43 76 03/01/20 06:00 145/74 (97) 03/01/20 04:00 90 03/01/20 04:00 97.9 90 20 180/82 (114) 98 03/01/20 01:41 200/102 03/01/20 01:20 200/102 (134) 03/01/20 00:48 97.5 03/01/20 00:00 99.1 90 20 170/77 (108) 98 03/01/20 00:00 90 Intake and Output 02/29/20 03/01/20 19:00 07:00 Intake Total 140 ml Balance 140 ml Intake Oral 140 ml Bladder Scan Volume Amount 11-30 ml > 300 ml <10 ml Laboratory Tests 03/01/20 02:00: POC Whole Blood Glucose 182H 03/01/20 04:50: Urine Color Pale yellow, Urine Appearance Clear, Urine pH 7, Urine Specific [place] 1.005, Urine Protein 1+H, Urine Glucose (UA) 2+H, Urine Ketones 1+H, Urine Blood 2+H, Urine Nitrite Negative, Urine Bilirubin Negative, Urine Urobilinogen Normal, Urine Leukocyte Esterase Negative, Urine RBC 2-4H, Urine WBC 0, Urine Squamous Epithelial Cells Occasional, Urine Bacteria Few 03/01/20 05:33: White Blood Count 10.3, Red Blood Count 5.53H, Hemoglobin 14.0, Hematocrit 43.3 , Mean Corpuscular Volume 78L, Mean Corpuscular Hemoglobin 25.3L, Mean Corpuscular Hemoglobin Concent 32.4, Red Cell Distribution Width 13.3, Platelet Count 258, Mean Platelet Volume 8.1, Neutrophils (%) (Auto) , Lymphocytes (%) ( Auto) , Monocytes (%) (Auto) , Eosinophils (%) (Auto) , Basophils (%) (Auto) , Differential Total Cells Counted 100, Neutrophils % (Manual) 86H, Lymphocytes % (Manual) 11L, Monocytes % (Manual) 3, Eosinophils % (Manual) 0, Basophils % ( Manual) 0, Band Neutrophils 0, Platelet Estimate Adequate, Platelet Morphology Normal, Microcytosis 2+, Sodium Level 135L, Potassium Level 3.9, Chloride Level 99, Carbon Dioxide Level 25, Anion Gap 11, Blood Urea Nitrogen 19H, Creatinine 1.0, Estimat Glomerular Filtration Rate > 60, Glucose Level 224#H, Calcium Level 9.0, Total Bilirubin 0.3, Aspartate Amino Transf (AST/SGOT) 16, Alanine Aminotransferase (ALT/SGPT) 21, Alkaline Phosphatase 106, Total Creatine Kinase 95, Troponin I 0.133H, Total Protein 8.3H, Albumin 3.5, Globulin 4.8, Albumin/ Globulin Ratio 0.7L, Triglycerides Level 78, Cholesterol Level 195, LDL Cholesterol 121H, HDL Cholesterol 56, Cholesterol/HDL Ratio 3.5 03/01/20 06:27: POC Whole Blood Glucose 223H 03/01/20 11:33: POC Whole Blood Glucose 155H 03/01/20 16:30: POC Whole Blood Glucose 176H 03/01/20 20:05: POC Whole Blood Glucose 86 Height (Feet): 5 Height (Inches): 2.00 Weight (Pounds): 168 Chidi Claudio MD Mar 01, 2020 21:54
[2020-03-02] VITALS (7 sets, daily range): BP systolic 124–165; BP diastolic 46–82
--- NOTE | 2020-03-02 02:50 | NUR ---
NURSE NOTES: Pt endorsed that she is missing her glasses, described as "brown with metal frames". RN assessed the room, including patient's belongings bag but was unable to find said glasses. Per pt, she last saw them "yesterday morning, they were on my head and I took them off to sleep and left them on the side of the bed. I can't remember if they were on the bed or on the tray." RN endorsed to Charge Nurse and updated belongings list.
[2020-03-02] MEDS: NovoLOG Insulin Flexpen SUBQ SCH ×7 (05:46→21:00)
[2020-03-02 05:59] LABS: BASOPHILS % (AUTO) 0.5 % (0.0-2.0); EOSINOPHILS % (AUTO) 1.4 % (0.0-3.0); HEMATOCRIT 39.8 % (37.0-47.0); HEMOGLOBIN 12.9 G/DL (12.0-16.0); LYMPHOCYTES % (AUTO) 25.1 % (20.0-45.0); MEAN CORPUSCULAR VOLUME 78 FL (80-99); MONOCYTES % (AUTO) 7.9 % (1.0-10.0); NEUTROPHILS % (AUTO) 65.2 % (45.0-75.0); PLATELET COUNT 235 K/UL (150-450); RED BLOOD COUNT 5.08 M/UL (4.20-5.40); RED CELL DISTRIBUTION WIDTH 13.5 % (11.6-14.8); WHITE BLOOD COUNT 10.4 K/UL (4.8-10.8)
[2020-03-02 06:16] LABS: ALANINE AMINOTRANSFERASE 21 U/L (12-78); ALBUMIN 2.9 G/DL (3.4-5.0); ALBUMIN/GLOBULIN RATIO 0.7 (1.0-2.7); ALKALINE PHOSPHATASE 82 U/L (46-116); ANION GAP 7 mmol/L (5-15); ASPARTATE AMINO TRANSFERASE 14 U/L (15-37); BILIRUBIN,TOTAL 0.5 MG/DL (0.2-1.0); BLOOD UREA NITROGEN 15 mg/dL (7-18); CALCIUM 8.4 MG/DL (8.5-10.1); CARBON DIOXIDE 28 MMOL/L (21-32); CHLORIDE 102 MMOL/L (98-107); CREATININE 1.1 MG/DL (0.55-1.30); POTASSIUM 4.4 MMOL/L (3.5-5.1); SODIUM 136 MMOL/L (136-145)
--- NOTE | 2020-03-02 07:21 | NUR ---
NURSE NOTES: RN endorsed to JESSICA Patrick that patient reports that her glasses are missing.
--- NOTE | 2020-03-02 07:22 | NUR ---
NURSE HAND-OFF REPORT: Important Events on Shift: OB stool ordered, pending stool collection. Pt reported lost eyeglasses, reported to Charge Nurse and [employer]. Patient Status: Stable Diet: CCHO med, cardiac Pending Orders: OB stool pending Pending Results/Labs: CMP, CBC, etc Pending MD notification: None Latest Vital Signs: Temperature 99.1 , Pulse 73 , B/P 136 /69 , Respiratory Rate 19 , O2 SAT 100 , Room Air, O2 Flow Rate . EKG Rhythm: Sinus Rhythm Rhythm change?: N MD Notified?: - MD Response: Latest Dumont Fall Score: 20 Fall Risk: Low Risk Safety Measures: Call light Within Reach, Bed Alarm Zone 2, Side Rails Side Rails x2, Bed position Low and Locked. Fall Precautions: Yellow Socks Door Sign Patient Fall Education Report given to JESSICA Patrick.
--- NOTE | 2020-03-02 07:30 | NUR ---
NURSE NOTES: pt, is in the restroom. pt Ao4, Bed is locked and in lowest position. Call light is at bedside. pt is on monitoring analyst no signs of cardiac or respiratory distress at this time. will continue to monitor pt. Pt is not reporting any pain at this time.
[2020-03-02] MEDS: Pantoprazole Inj IVP SCH ×3 (09:00→10:54)
[2020-03-02] MEDS: Aspirin EC 81mg tab ORAL SCH (09:44)
[2020-03-02] MEDS: HydrALAZINE 50mg tab ORAL SCH ×3 (09:45→17:50)
[2020-03-02] MEDS: Metoprolol Tartrate 50mg tab ORAL SCH ×2 (09:45→20:46)
[2020-03-02] MEDS: Tamsulosin 0.4mg cap ORAL SCH ×2 (09:46→17:48)
[2020-03-02] MEDS: Docusate 100mg cap ORAL SCH ×2 (09:46→17:48)
[2020-03-02] MEDS: Heparin 5000 units/ml inj SUBQ SCH ×2 (09:47→20:47)
--- NOTE | 2020-03-02 10:06 | NUR ---
NURSE NOTES: Israel cutler. pt IV is not working tried to flush it a few time. unable to give Pantoprazole. pt does not want another IV access because she said she is leaving today.
--- NOTE | 2020-03-02 10:48 | Infectious Diseases Prog Note ---
Assessment/Plan Assessment/Plan antibiotics : none A 1. Possible gastroenteritis resolved 2. Symptoms could be secondary to hyperglycemia. 3. Leukocytosis has resolved. 4. COVID-19 test is negative. P 1. observe off antibiotics Subjective Constitutional: Denies: fever, chills Respiratory: Denies: shortness of breath, dry cough Gastrointestinal/Abdominal: Denies: nausea, vomiting, diarrhea Musculoskeletal: Denies: pain Allergies: Uncoded Allergies: AVOCADOS (Allergy, Unknown, 02/27/20) Objective Last 24 Hour Vital Signs Date Time Temp Pulse Resp B/P (MAP) Pulse Ox O2 Delivery O2 Flow Rate FiO2 03/02/20 09:45 85 165/80 03/02/20 09:45 165/80 03/02/20 09:45 165/80 03/02/20 09:45 85 165/80 03/02/20 08:00 98.1 85 20 165/80 (108) 98 03/02/20 04:00 99.1 74 19 136/69 (91) 100 03/02/20 04:00 73 03/02/20 00:00 99.1 75 18 153/46 (81) 100 03/02/20 00:00 75 03/01/20 21:00 97 149/81 03/01/20 21:00 Room Air 03/01/20 20:00 99.8 97 18 149/67 (94) 99 03/01/20 20:00 98 03/01/20 17:08 146/81 03/01/20 17:08 81 146/81 03/01/20 16:00 100.4 81 18 146/81 (102) 100 03/01/20 15:37 80 03/01/20 13:34 148/79 03/01/20 12:00 99.9 85 20 148/79 (102) 100 03/01/20 11:44 83 Height (Feet): 5 Height (Inches): 2.00 Weight (Pounds): 167 Respiratory/Chest: lungs clear Cardiovascular: normal rate, regular rhythm, no gallop/murmur Abdomen: soft, non tender Extremities: no edema Microbiology Date/Time Source Procedure Growth Status 02/28/20 11:28 Indwelling Cath Urine Culture - Final NO GROWTH AFTER 48 HOURS Complete Laboratory Tests Test 03/01/20 11:33 03/01/20 16:30 03/01/20 20:05 03/02/20 05:03 POC Whole Blood Glucose 155 MG/DL (74-106) H 176 MG/DL (74-106) H 86 MG/DL (74-106) 216 MG/DL (74-106) H Test 03/02/20 05:20 White Blood Count 10.4 K/UL (4.8-10.8) Red Blood Count 5.08 M/UL (4.20-5.40) Hemoglobin 12.9 G/DL (12.0-16.0) Hematocrit 39.8 % (37.0-47.0) Mean Corpuscular Volume 78 FL (80-99) L Mean Corpuscular Hemoglobin 25.5 PG (27.0-31.0) L Mean Corpuscular Hemoglobin Concent 32.5 G/DL (32.0-36.0) Red Cell Distribution Width 13.5 % (11.6-14.8) Platelet Count 235 K/UL (150-450) Mean Platelet Volume 7.7 FL (6.5-10.1) Neutrophils (%) (Auto) 65.2 % (45.0-75.0) Lymphocytes (%) (Auto) 25.1 % (20.0-45.0) Monocytes (%) (Auto) 7.9 % (1.0-10.0) Eosinophils (%) (Auto) 1.4 % (0.0-3.0) Basophils (%) (Auto) 0.5 % (0.0-2.0) Sodium Level 136 MMOL/L (136-145) Potassium Level 4.4 MMOL/L (3.5-5.1) Chloride Level 102 MMOL/L (98-107) Carbon Dioxide Level 28 MMOL/L (21-32) Anion Gap 7 mmol/L (5-15) Blood Urea Nitrogen 15 mg/dL (7-18) Creatinine 1.1 MG/DL (0.55-1.30) Estimat Glomerular Filtration Rate > 60 mL/min (>60) Glucose Level 220 MG/DL (74-106) H Calcium Level 8.4 MG/DL (8.5-10.1) L Magnesium Level 1.8 MG/DL (1.8-2.4) Total Bilirubin 0.5 MG/DL (0.2-1.0) Aspartate Amino Transf (AST/SGOT) 14 U/L (15-37) L Alanine Aminotransferase (ALT/SGPT) 21 U/L (12-78) Alkaline Phosphatase 82 U/L (46-116) Pro-B-Type Natriuretic Peptide 1005 pg/mL (0-125) H Total Protein 7.1 G/DL (6.4-8.2) Albumin 2.9 G/DL (3.4-5.0) L Globulin 4.2 g/dL Albumin/Globulin Ratio 0.7 (1.0-2.7) L Current Medications Medications (Trade) Dose Ordered Sig/Xi Route PRN Reason Start Time Stop Time Status Last Admin Dose Admin Acetaminophen (Tylenol) 650 mg Q6H PRN ORAL mild pain(1-3) 02/28/20 13:00 03/28/20 12:59 Acetaminophen/ Hydrocodone Bitart ([place] 5/325) 1 tab Q6H PRN ORAL Moderate Pain (Pain Scale 4-6) 02/28/20 14:30 03/05/20 14:29 03/01/20 00:18 Amlodipine Besylate (Norvasc) 5 mg BID ORAL 02/28/20 18:00 03/28/20 17:59 03/02/20 09:45 Aspirin (Ecotrin) 81 mg DAILY ORAL 02/29/20 09:00 04/12/20 18:14 03/02/20 09:44 Atorvastatin Calcium (Lipitor) 20 mg BEDTIME ORAL 02/28/20 21:00 05/27/20 20:59 03/01/20 21:00 Benazepril HCl (Lotensin) 40 mg DAILY ORAL 02/28/20 10:30 03/29/20 10:29 03/02/20 09:45 Bismuth Subsalicylate (Pepto-Bismol) 30 ml Q3H PRN ORAL upset stomach 02/28/20 12:15 04/13/20 00:14 Clopidogrel Bisulfate (Plavix) 75 mg DAILY ORAL 02/29/20 09:00 03/29/20 08:59 03/02/20 09:45 Dextrose (Dextrose 50%) 25 ml Q30M PRN IV HYPOGLYCEMIA 02/28/20 10:30 05/27/20 14:59 Dextrose (Dextrose 50%) 50 ml Q30M PRN IV HYPOGLYCEMIA 02/28/20 10:30 05/27/20 14:59 Docusate Sodium (Colace) 100 mg TWICE A DAY ORAL 03/01/20 13:15 03/31/20 13:14 03/02/20 09:46 Heparin Sodium (Porcine) (Heparin 5000 units/ml) 5,000 units EVERY 12 HOURS SUBQ 02/28/20 21:00 04/12/20 20:59 03/02/20 09:47 Hydralazine HCl (Apresoline) 25 mg Q6H PRN ORAL SBP above 160 03/01/20 01:45 05/30/20 01:44 03/01/20 01:41 Hydralazine HCl (Apresoline) 50 mg TID ORAL 03/01/20 09:00 05/30/20 08:59 03/02/20 09:45 Insulin Aspart (NovoLOG) 14 units NOVOTIAC SUBQ 02/28/20 11:50 05/28/20 11:49 03/01/20 17:11 Insulin Aspart (NovoLOG) No Dose BEFORE MEALS AND HS SUBQ 02/28/20 21:00 05/28/20 11:29 03/02/20 05:46 Insulin Detemir (Levemir) 40 units BEDTIME SUBQ 02/28/20 21:00 05/28/20 20:59 02/29/20 21:39 Magnesium Hydroxide (Mom) 30 ml DAILYPRN PRN ORAL Constipation 03/01/20 13:15 03/31/20 13:14 03/02/20 05:45 Metoprolol Tartrate (Lopressor) 50 mg Q12HR ORAL 03/01/20 21:00 05/30/20 20:59 03/02/20 09:45 Ondansetron HCl (Zofran) 4 mg Q6H PRN IVP Nausea & Vomiting 02/28/20 14:30 03/28/20 14:29 Pantoprazole (Protonix) 40 mg DAILY IVP 02/29/20 09:00 03/29/20 08:59 03/02/20 09:44 Tamsulosin HCl (Flomax) 0.4 mg BID ORAL 02/28/20 18:00 03/29/20 17:59 03/02/20 09:46 Curtis Casillas MD Mar 02, 2020:48
--- NOTE | 2020-03-02 12:05 | General Progress Note ---
Assessment/Plan Assessment/Plan: Assessment - resolved GI symptoms - microcytic anemia Recommend - PO diet as tolerated - Outpatient EGD/Colon - patient has my card/info - understands she has responsibility to call / set up EGD?Colon Subjective Allergies: Uncoded Allergies: AVOCADOS (Allergy, Unknown, 02/27/20) Subjective Feels OK no abdominal pain d/w patient re anemia advised needs EGD/Colon to r/o GI malignancy wants to go home today wants to do as outpatient Objective Last 24 Hour Vital Signs Date Time Temp Pulse Resp B/P (MAP) Pulse Ox O2 Delivery O2 Flow Rate FiO2 03/02/20 09:45 85 165/80 03/02/20 09:45 165/80 03/02/20 09:45 165/80 03/02/20 09:45 85 165/80 03/02/20 09:00 Room Air 03/02/20 08:00 98.1 85 20 165/80 (108) 98 03/02/20 04:00 99.1 74 19 136/69 (91) 100 03/02/20 04:00 73 03/02/20 00:00 99.1 75 18 153/46 (81) 100 03/02/20 00:00 75 03/01/20 21:00 97 149/81 03/01/20 21:00 Room Air 03/01/20 20:00 99.8 97 18 149/67 (94) 99 03/01/20 20:00 98 03/01/20 17:08 146/81 03/01/20 17:08 81 146/81 03/01/20 16:00 100.4 81 18 146/81 (102) 100 03/01/20 15:37 80 03/01/20 13:34 148/79 Intake and Output 03/01/20 03/02/20 19:00 07:00 Intake Total 300 ml 250 ml Output Total 575 ml 400 ml Balance -275 ml -150 ml Intake Oral 300 ml 250 ml Output Urine Total 575 ml 400 ml Laboratory Tests 03/01/20 16:30: POC Whole Blood Glucose 176H 03/01/20 20:05: POC Whole Blood Glucose 86 03/02/20 05:03: POC Whole Blood Glucose 216H 03/02/20 05:20: White Blood Count 10.4, Red Blood Count 5.08, Hemoglobin 12.9, Hematocrit 39.8, Mean Corpuscular Volume 78L, Mean Corpuscular Hemoglobin 25.5L, Mean Corpuscular Hemoglobin Concent 32.5, Red Cell Distribution Width 13.5, Platelet Count 235, Mean Platelet Volume 7.7, Neutrophils (%) (Auto) 65.2, Lymphocytes (% ) (Auto) 25.1, Monocytes (%) (Auto) 7.9, Eosinophils (%) (Auto) 1.4, Basophils ( %) (Auto) 0.5, Sodium Level 136, Potassium Level 4.4, Chloride Level 102, Carbon Dioxide Level 28, Anion Gap 7, Blood Urea Nitrogen 15, Creatinine 1.1, Estimat Glomerular Filtration Rate > 60, Glucose Level 220H, Calcium Level 8.4L , Magnesium Level 1.8, Total Bilirubin 0.5, Aspartate Amino Transf (AST/SGOT) 14L, Alanine Aminotransferase (ALT/SGPT) 21, Alkaline Phosphatase 82, Pro-B- Type Natriuretic Peptide 1005H, Total Protein 7.1, Albumin 2.9L, Globulin 4.2, Albumin/Globulin Ratio 0.7L Height (Feet): 5 Height (Inches): 2.00 Weight (Pounds): 167 Objective WDWN AA Woman NCAT supple CTA RR abd Soft ND NT no edema Chidi Claudio MD Mar 02, 2020 12:05
--- NOTE | 2020-03-02 12:22 | NUR ---
NURSE NOTES: NOTIFIED Doctor Gerald that pt does not have IV access, that pt has not had BM that and T100.4. NO new orders were given. All the pt needs is to void before she goes home/ doctor Gerald.
--- NOTE | 2020-03-02 12:29 | General Progress Note ---
Assessment/Plan Assessment/Plan: Impression: Diabetic ketoacidosis Possible UTI /sepsis Elevated Troponin Hypertensive emergency CHF with elevated BNP Hypokalemia Acute renal failure Dehydration CAD possible urinary retention Plan IV Antibiotics- off Insulin SS ID and GI clearance Cardiology Consultation Renal Consultation ASA/Plavix PPX dc cutler and home if can urinate impression, plan, and exam edited and reviewed in detail care discussed with RN Subjective Allergies: Uncoded Allergies: AVOCADOS (Allergy, Unknown, 02/27/20) Subjective cutler in wants to go home Objective Last 24 Hour Vital Signs Date Time Temp Pulse Resp B/P (MAP) Pulse Ox O2 Delivery O2 Flow Rate FiO2 03/02/20 09:45 85 165/80 03/02/20 09:45 165/80 03/02/20 09:45 165/80 03/02/20 09:45 85 165/80 03/02/20 09:00 Room Air 03/02/20 09:00 Room Air 03/02/20 08:00 98.1 85 20 165/80 (108) 98 03/02/20 04:00 99.1 74 19 136/69 (91) 100 03/02/20 04:00 73 03/02/20 00:00 99.1 75 18 153/46 (81) 100 03/02/20 00:00 75 03/01/20 21:00 97 149/81 03/01/20 21:00 Room Air 03/01/20 20:00 99.8 97 18 149/67 (94) 99 03/01/20 20:00 98 03/01/20 17:08 146/81 03/01/20 17:08 81 146/81 03/01/20 16:00 100.4 81 18 146/81 (102) 100 03/01/20 15:37 80 03/01/20 13:34 148/79 Intake and Output 03/01/20 03/02/20 19:00 07:00 Intake Total 300 ml 250 ml Output Total 575 ml 400 ml Balance -275 ml -150 ml Intake Oral 300 ml 250 ml Output Urine Total 575 ml 400 ml Laboratory Tests 03/01/20 16:30: POC Whole Blood Glucose 176H 03/01/20 20:05: POC Whole Blood Glucose 86 03/02/20 05:03: POC Whole Blood Glucose 216H 8/12/20 05:20: White Blood Count 10.4, Red Blood Count 5.08, Hemoglobin 12.9, Hematocrit 39.8, Mean Corpuscular Volume 78L, Mean Corpuscular Hemoglobin 25.5L, Mean Corpuscular Hemoglobin Concent 32.5, Red Cell Distribution Width 13.5, Platelet Count 235, Mean Platelet Volume 7.7, Neutrophils (%) (Auto) 65.2, Lymphocytes (% ) (Auto) 25.1, Monocytes (%) (Auto) 7.9, Eosinophils (%) (Auto) 1.4, Basophils ( %) (Auto) 0.5, Sodium Level 136, Potassium Level 4.4, Chloride Level 102, Carbon Dioxide Level 28, Anion Gap 7, Blood Urea Nitrogen 15, Creatinine 1.1, Estimat Glomerular Filtration Rate > 60, Glucose Level 220H, Calcium Level 8.4L , Magnesium Level 1.8, Total Bilirubin 0.5, Aspartate Amino Transf (AST/SGOT) 14L, Alanine Aminotransferase (ALT/SGPT) 21, Alkaline Phosphatase 82, Pro-B- Type Natriuretic Peptide 1005H, Total Protein 7.1, Albumin 2.9L, Globulin 4.2, Albumin/Globulin Ratio 0.7L Height (Feet): 5 Height (Inches): 2.00 Weight (Pounds): 167 Objective WDWN NAD clear breath sounds bilaterally without rhonchi or wheeze [id number] without MRG NABS nontender no HSM no CCE nonfocal Armando Duarte MD Mar 02, 2020 12:29
--- NOTE | 2020-03-02 13:36 | NUR ---
CASE MANAGEMENT: REVIEW SI: POSSIBLE GASTROENTERITIS . DKA . CHF T 99.1 HR 75 RR 18 BP 165/80 SAT 98% ROOM AIR GLUCOSE 254 OB RENNY PENDING IS: HYDRALAZINE 50MG PO TID FLOMAX PO BID NOVOLOG SUBQ AC+HR DC MILLER CATH TODAY -- IF PATIENT CAN URINATE DC HOME PATIENT WILL NEED OUTPATIENT EGD/COLON R/O MALIGNANCY TELEMETRY UNIT STATUS DCP: PATIENT IS FROM HOME
--- NOTE | 2020-03-02 13:48 | NUR ---
*-* INSURANCE *-* UPDATED CLINICALS AND REVIEWS HAVE BEEN FAXED TO: CECILLE Heck/RAYA [phone] FAX:[phone] FAX:[phone]
--- NOTE | 2020-03-02 14:22 | Nephrology Progress Note ---
Assessment/Plan Problem List: (1) Uncontrolled diabetes mellitus (2) Dehydration (3) Acute renal failure (4) Elevated troponin (5) Hypertensive emergency (6) Urinary retention Plan hydration better , dc iv, titrate bp meds, cardiol reassess troponin elevation, urinary ml, now with cutler removed voiding trial Subjective Constitutional: Reports: weakness HEENT: Reports: no symptoms Genitourinary: Reports: other - slow stream Neurologic/Psychiatric: Reports: no symptoms Objective Objective Last 24 Hour Vital Signs Date Time Temp Pulse Resp B/P (MAP) Pulse Ox O2 Delivery O2 Flow Rate FiO2 03/02/20 13:18 165/80 03/02/20 12:00 100.4 81 20 146/82 (103) 98 03/02/20 12:00 95 03/02/20 09:45 85 165/80 03/02/20 09:45 165/80 03/02/20 09:45 165/80 03/02/20 09:45 85 165/80 03/02/20 09:00 Room Air 03/02/20 09:00 Room Air 03/02/20 08:00 98.1 85 20 165/80 (108) 98 03/02/20 08:00 82 03/02/20 04:00 99.1 74 19 136/69 (91) 100 03/02/20 04:00 73 03/02/20 00:00 99.1 75 18 153/46 (81) 100 03/02/20 00:00 75 03/01/20 21:00 97 149/81 03/01/20 21:00 Room Air 03/01/20 20:00 99.8 97 18 149/67 (94) 99 03/01/20 20:00 98 03/01/20 17:08 146/81 03/01/20 17:08 81 146/81 03/01/20 16:00 100.4 81 18 146/81 (102) 100 03/01/20 15:37 80 Intake and Output 03/01/20 03/02/20 19:00 07:00 Intake Total 300 ml 250 ml Output Total 575 ml 400 ml Balance -275 ml -150 ml Intake Oral 300 ml 250 ml Output Urine Total 575 ml 400 ml Laboratory Tests 03/01/20 16:30: POC Whole Blood Glucose 176H 8/11/20 20:05: POC Whole Blood Glucose 86 03/02/20 05:03: POC Whole Blood Glucose 216H 03/02/20 05:20: White Blood Count 10.4, Red Blood Count 5.08, Hemoglobin 12.9, Hematocrit 39.8, Mean Corpuscular Volume 78L, Mean Corpuscular Hemoglobin 25.5L, Mean Corpuscular Hemoglobin Concent 32.5, Red Cell Distribution Width 13.5, Platelet Count 235, Mean Platelet Volume 7.7, Neutrophils (%) (Auto) 65.2, Lymphocytes (% ) (Auto) 25.1, Monocytes (%) (Auto) 7.9, Eosinophils (%) (Auto) 1.4, Basophils ( %) (Auto) 0.5, Sodium Level 136, Potassium Level 4.4, Chloride Level 102, Carbon Dioxide Level 28, Anion Gap 7, Blood Urea Nitrogen 15, Creatinine 1.1, Estimat Glomerular Filtration Rate > 60, Glucose Level 220H, Calcium Level 8.4L , Magnesium Level 1.8, Total Bilirubin 0.5, Aspartate Amino Transf (AST/SGOT) 14L, Alanine Aminotransferase (ALT/SGPT) 21, Alkaline Phosphatase 82, Pro-B- Type Natriuretic Peptide 1005H, Total Protein 7.1, Albumin 2.9L, Globulin 4.2, Albumin/Globulin Ratio 0.7L 03/02/20 12:36: POC Whole Blood Glucose 254H Height (Feet): 5 Height (Inches): 2.00 Weight (Pounds): 167 General Appearance: no apparent distress, alert EENT: normal ENT inspection Neck: normal alignment Cardiovascular: regular rhythm Respiratory/Chest: lungs clear Abdomen: non tender Extremities: no edema Neurologic: cognos consultant II-XII grossly normal Danielito Doan MD Mar 02, 2020 14:22
--- NOTE | 2020-03-02 15:30 | Consultation ---
DATE OF CONSULTATION: 03/01/2020 GASTROENTEROLOGY CONSULTATION CHIEF COMPLAINT: I was asked to see this patient by Dr. Armando Duarte for evaluation of abdominal symptoms and anemia. HISTORY OF PRESENT ILLNESS: The patient is a 64-year-old woman with a history of multiple medical problems including diabetes, high blood pressure, and obesity, who was brought in by ambulance due to nausea, vomiting, and diarrhea. The patient also had some diffuse abdominal pain especially in the lower abdomen. She was admitted for hypertensive emergency because she was unable to take her medications. She also had acute myocardial ischemia as a result of this. She states that she was able to empty her bladder and she actually felt much better. Her nausea, vomiting, abdominal pain, and pain symptoms have all resolved now; however, her laboratory tests show some degree of mild microcytic anemia with MCV 78 to 79, hemoglobin and hematocrit which were actually normal now. The patient has not had an endoscopy or colonoscopy for many years. She believes her last colonoscopy was perhaps 10 or 20 years ago. She does have some degree of constipation and takes [id number] laxatives to go to the bathroom. She has no heartburn or dysphagia. PAST MEDICAL HISTORY: Remarkable for history of diabetes, high blood pressure, obesity. FAMILY HISTORY: Noncontributory. SOCIAL HISTORY: The patient lives in [facility]. She was previously seen by the Clinic. REVIEW OF SYSTEMS: Otherwise negative. PHYSICAL EXAMINATION: GENERAL: This is a pleasant elderly woman seen in her room. HEENT: Normocephalic and atraumatic. Sclerae anicteric. Oropharynx clear. NECK: Supple. CHEST: Clear to auscultation. CARDIOVASCULAR: Regular rate. ABDOMEN: Soft and nontender with good bowel sounds. EXTREMITIES: No edema. LABORATORY DATA: Noted. ASSESSMENT: This patient presents with acute nausea, vomiting, and abdominal pain, which have all now resolved. The patient is being treated for other medical problems such as blood pressure. She does have a microcytic anemia and should therefore undergo endoscopy and colonoscopy. I have advised the patient possibly later during this admission when her medical condition permits. In the meantime, her labs should be followed and oral diet can be as tolerated. RECOMMENDATIONS: Per above discussion and per orders in the chart. Thank you for asking me to participate in the care of this patient. Chidi Claudio M.D. DR: Ryan JOB#: [id number] CC:
--- NOTE | 2020-03-02 19:41 | NUR ---
NURSE HAND-OFF REPORT: Important Events on Shift:YO cutler, pt hasn't pee, doctor Gerald is aware. pt does not have IV access either doctor aware as well Patient Status: full code stable Diet: CCHO Medium cardiac Pending Orders: Pending Results/Labs: Pending MD notification: Latest Vital Signs: Temperature 98.9 , Pulse 77 , B/P 145 /64 , Respiratory Rate 20 , O2 SAT 98 , Room Air, O2 Flow Rate . Vital Sign Comment: EKG Rhythm: Sinus Rhythm Rhythm change?: N MD Notified?: - MD Response: Latest Dumont Fall Score: 20 Fall Risk: Low Risk Safety Measures: Call light Within Reach, Bed Alarm Zone 2, Side Rails Side Rails x2, Bed position Low and Locked. Fall Precautions: yes bed in lowest position Yellow Socks yes Door Sign Patient Fall Education yes Report given to Karlos/ vijay Guzman Rn's.
--- NOTE | 2020-03-02 19:48 | NUR ---
NURSE NOTES: Report received from Celina LOPEZ. Patient is bed resting comfortably. Patient is A/O x4. No distress noted or pain reported at this time. Bed is locked and in lowest position. No IV noted at this time, patient refused IV per Day RN MD was notified. Call light and belongings within reach is. Patient was educated to call for assistance. Will continue plan of care.
[2020-03-02] MEDS: Atorvastatin 20mg tab ORAL SCH (20:46)
[2020-03-02] MEDS: Levemir Flexpen SUBQ SCH (21:00)
--- NOTE | 2020-03-02 22:06 | NUR ---
NURSE NOTES: Patient encouraged to continue to try to void, encouraged to ambulate the halls and to stimulate lower abdominal area to promote voiding, pt verbalized understanding and ambulated 3 times in the hernandez at approximately 2145. Bladder scan done at 2200 which showed 550 ml. RN left message with Dr. Duarte, currently awaiting call back.
--- NOTE | 2020-03-02 22:45 | NUR ---
NURSE NOTES: RN endorsed to Dr. Doan that patient has still been unable to void since cutler was discontinued at 1000. Pt has been ambulating the unit but has been unsuccessful with voiding. Per Dr. Doan, start pt on urecholine 25mg 4x/day PO (start patient now), in and out straight catheter, and then bladder scan in the morning if still unable to void. Will continue to monitor pt.
[2020-03-02] MEDS: Bethanechol 25mg Tab ORAL SCH (23:18)
--- NOTE | 2020-03-02 23:33 | NUR ---
NURSE NOTES: Patient refused Straight Catheterization. Patient educated on the needs and benefits of the Straight Catheterization. Urecholine administered and patient was encouraged to attempt to void. Will continue to monitor patient.
[2020-03-03] VITALS: BP 135/79
--- NOTE | 2020-03-03 02:57 | Cardiology Progress Note ---
Subjective DATE OF SERVICE: Mar 02, 2020 Troponin normalized; no c/o chest pain or SOB. Yesterday, she had fevers. BP parameters remain labile at time. Patient now relates recent abnormal myocardial perfusion scan prior to admission. She was told that she may need cardiac cath in the future. IVF adjusted Insulin adjustments on-going HDL 56 - LDL 121 Objective Last 24 Hour Vital Signs Date Time Temp Pulse Resp B/P (MAP) Pulse Ox O2 Delivery O2 Flow Rate FiO2 03/03/20 00:00 98.1 70 18 135/79 (97) 98 03/03/20 00:00 72 03/02/20 21:00 Room Air 03/02/20 20:46 79 124/60 03/02/20 20:00 83 03/02/20 20:00 98.1 79 22 124/60 (81) 97 03/02/20 18:22 98.9 03/02/20 17:50 145/64 03/02/20 17:49 77 145/64 03/02/20 16:00 78 03/02/20 16:00 100.2 77 20 145/64 (91) 98 03/02/20 13:18 165/80 03/02/20 12:00 100.4 81 20 146/82 (103) 98 03/02/20 12:00 95 03/02/20 09:45 85 165/80 03/02/20 09:45 165/80 03/02/20 09:45 165/80 03/02/20 09:45 85 165/80 03/02/20 09:00 Room Air 03/02/20 09:00 Room Air 03/02/20 08:00 98.1 85 20 165/80 (108) 98 03/02/20 08:00 82 03/02/20 04:00 99.1 74 19 136/69 (91) 100 03/02/20 04:00 73 RHYTHM: NSR, ST, PACs LUNGS: lungs clear bilaterally CARDIAC: regular rhythm, normal S1 and S2, gallop/S4 ABDOMEN: non tender, soft, no organomegaly EXTREMITIES: non-tender, No edema Laboratory Tests Test 03/02/20 05:03 03/02/20 05:20 03/02/20 12:36 03/02/20 17:57 POC Whole Blood Glucose 216 MG/DL (74-106) H 254 MG/DL (74-106) H Pending White Blood Count 10.4 K/UL (4.8-10.8) Red Blood Count 5.08 M/UL (4.20-5.40) Hemoglobin 12.9 G/DL (12.0-16.0) Hematocrit 39.8 % (37.0-47.0) Mean Corpuscular Volume 78 FL (80-99) L Mean Corpuscular Hemoglobin 25.5 PG (27.0-31.0) L Mean Corpuscular Hemoglobin Concent 32.5 G/DL (32.0-36.0) Red Cell Distribution Width 13.5 % (11.6-14.8) Platelet Count 235 K/UL (150-450) Mean Platelet Volume 7.7 FL (6.5-10.1) Neutrophils (%) (Auto) 65.2 % (45.0-75.0) Lymphocytes (%) (Auto) 25.1 % (20.0-45.0) Monocytes (%) (Auto) 7.9 % (1.0-10.0) Eosinophils (%) (Auto) 1.4 % (0.0-3.0) Basophils (%) (Auto) 0.5 % (0.0-2.0) Sodium Level 136 MMOL/L (136-145) Potassium Level 4.4 MMOL/L (3.5-5.1) Chloride Level 102 MMOL/L (98-107) Carbon Dioxide Level 28 MMOL/L (21-32) Anion Gap 7 mmol/L (5-15) Blood Urea Nitrogen 15 mg/dL (7-18) Creatinine 1.1 MG/DL (0.55-1.30) Estimat Glomerular Filtration Rate > 60 mL/min (>60) Glucose Level 220 MG/DL (74-106) H Calcium Level 8.4 MG/DL (8.5-10.1) L Magnesium Level 1.8 MG/DL (1.8-2.4) Total Bilirubin 0.5 MG/DL (0.2-1.0) Aspartate Amino Transf (AST/SGOT) 14 U/L (15-37) L Alanine Aminotransferase (ALT/SGPT) 21 U/L (12-78) Alkaline Phosphatase 82 U/L (46-116) Pro-B-Type Natriuretic Peptide 1005 pg/mL (0-125) H Total Protein 7.1 G/DL (6.4-8.2) Albumin 2.9 G/DL (3.4-5.0) L Globulin 4.2 g/dL Albumin/Globulin Ratio 0.7 (1.0-2.7) L Assessment/Plan Assessment/Plan DKA Acute myocardial infarction Hypertension/HHD Chronic diastolic CHF UTI with sepsis Hypovolemia Hypokalemia Hypophosphatemia Dyslipidemia Fevers Urinary retention IVF Fever work-up Antiplatelet therapy Titrate insulin Titrate antiHTN and anti-anginal regimen Replace K/Phos as needed Continue statin rx Urology work-up Will schedule outpatient cardiac cath Federico Brito MD Mar 03, 2020 02:57
--- NOTE | 2020-03-03 03:25 | NUR ---
NURSE NOTES: RN did rounds and asked patient if she has been able to void since urecholine administration. Per patient, she has still been unable to despite stimulation in lower abdominal area and ambulating in the room. RN encouraged patient to continue to attempt to try to void and spoke to patient regarding possibility of intermittent catheterization including its need and benefits, as well as dangers of not emptying bladder. Pt continued to state, "No, I don't want another catheter. I want to keep trying, I just need to relax." Will continue to monitor.
[2020-03-03 04:00] VITALS: BP 138/59
--- NOTE | 2020-03-03 05:00 | NUR ---
NURSE NOTES: Patient is still continue refused Straight Catheterization. Patient was able to urinate only 150mls. Bladder scan was done after the patient voided and shows a residual of 810ml. Patient educated on the needs and benefits of the Straight Catheterization. Patient verbally states that "I don't need a catheter. Now I know I can pee. When I get up in the morning I am getting dressed and going home." Charge nurse notified. Message left with Dr. Duarte. Awaiting call back. Will continue to monitor.
--- NOTE | 2020-03-03 05:28 | NUR ---
NURSE NOTES: Dr. Duarte made aware of possible AMA. No new order given.
[2020-03-03] MEDS: NovoLOG Insulin Flexpen SUBQ SCH ×2 (06:21→06:29)
--- NOTE | 2020-03-03 07:02 | NUR ---
NURSE NOTES: Notified Dr. Duarte that patient is wondering if she can be discharged as she is adamant about receiving a prescription for Urecholine, which helped her void and the patient is eager to go home. Awaiting callback for any further orders.
--- NOTE | 2020-03-03 07:11 | NUR ---
NURSE HAND-OFF REPORT: Important Events on Shift:Patient still has notable urinary retention refusing straight catheterization. Patient Status: Sable Diet: Consistent carb cardiac diet Pending Orders: straight catheterization with patients consent. Pending Results/Labs: None Pending MD notification: Dr. Duarte to speak to the patient. Latest Vital Signs: Temperature 98.1 , Pulse 71 , B/P 138 /59 , Respiratory Rate 17 , O2 SAT 98 , Room Air, O2 Flow Rate . Vital Sign Comment: None EKG Rhythm: Sinus Rhythm Rhythm change?: N MD Notified?: - MD Response: Latest Dumont Fall Score: 20 Fall Risk: Low Risk Safety Measures: Call light Within Reach, Bed Alarm Zone 2, Side Rails Side Rails x2, Bed position Low and Locked. Fall Precautions: Yes Yellow Socks Door Sign Patient Fall Education Report given to Celina LOPEZ.
--- NOTE | 2020-03-03 07:23 | NUR ---
NURSE NOTES: RN endorsed to receiving nurseCelina, that pt reported glasses were missing. Addendum: 03/03/20 at 0757 by Karlos Sanabria RN RN endorsed to receiving nurse, Celina, that pt has still been unable to find the reported missing glasses.
--- NOTE | 2020-03-03 07:35 | NUR ---
NURSE NOTES: Pt, in bed. Pt is waiting to speak to doctor about being DC, otherwise she will go AMA. Pt's only has pee 150ml and per bladder scan she is holding 810ml. cutler was taken out yesterday at 1000. pt does not want to be catheterized again. pt hasn't had a BM yet. AOx4, has no pain. Bed is locked and in lowest position. Call light within reach. Will continue to monitor pt.
[2020-03-03] MEDS: Heparin 5000 units/ml inj SUBQ SCH (08:33)
[2020-03-03] MEDS ORDERED: URECHOLINE25 MG ORAL (08:34)
[2020-03-03] MEDS: Docusate 100mg cap ORAL SCH ×2 (08:34→08:51)
[2020-03-03] MEDS ORDERED: URECHOLINE25 M1 ORAL (08:34)
[2020-03-03 08:38] VITALS: BP 131/71
[2020-03-03] MEDS: Aspirin EC 81mg tab ORAL SCH (08:39)
[2020-03-03] MEDS: Bethanechol 25mg Tab ORAL SCH (08:39)
[2020-03-03 08:40] VITALS: BP 131/71
[2020-03-03] MEDS: HydrALAZINE 50mg tab ORAL SCH (08:40)
[2020-03-03] MEDS: Metoprolol Tartrate 50mg tab ORAL SCH (08:40)
[2020-03-03] MEDS: Tamsulosin 0.4mg cap ORAL SCH (08:40)
[2020-03-03] MEDS: Pantoprazole Inj IVP SCH (09:04)
--- NOTE | 2020-03-03 09:30 | NUR ---
NURSE NOTES: pt voided 50ml. and after bladder scan she is still holding 525ml in her bladder. pt does not want to be catheterize.
--- NOTE | 2020-03-03 09:30 | Nephrology Progress Note ---
Assessment/Plan Problem List: (1) Uncontrolled diabetes mellitus (2) Dehydration (3) Acute renal failure (4) Elevated troponin (5) Hypertensive emergency (6) Urinary retention Plan hydration better , dc iv, titrate bp meds, cardiol reassess troponin elevation, urinary ml, now with cutler removed voiding trial, required in and out cath last night, may need cutler for home, urecholine added Subjective Constitutional: Reports: no symptoms HEENT: Reports: no symptoms Genitourinary: Reports: other - difficulty void Neurologic/Psychiatric: Reports: no symptoms Objective Objective Last 24 Hour Vital Signs Date Time Temp Pulse Resp B/P (MAP) Pulse Ox O2 Delivery O2 Flow Rate FiO2 03/03/20 08:40 131/71 03/03/20 08:40 72 131/71 03/03/20 08:40 72 131/71 03/03/20 08:38 97.9 72 18 131/71 (91) 100 03/03/20 08:37 131/71 03/03/20 04:00 98.1 71 17 138/59 (85) 98 03/03/20 04:00 71 03/03/20 00:00 98.1 70 18 135/79 (97) 98 03/03/20 00:00 72 03/02/20 21:00 Room Air 03/02/20 20:46 79 124/60 03/02/20 20:00 83 03/02/20 20:00 98.1 79 22 124/60 (81) 97 03/02/20 18:22 98.9 03/02/20 17:50 145/64 03/02/20 17:49 77 145/64 03/02/20 16:00 78 03/02/20 16:00 100.2 77 20 145/64 (91) 98 03/02/20 13:18 165/80 03/02/20 12:00 100.4 81 20 146/82 (103) 98 03/02/20 12:00 95 03/02/20 09:45 85 165/80 03/02/20 09:45 165/80 03/02/20 09:45 165/80 03/02/20 09:45 85 165/80 Laboratory Tests 03/02/20 12:36: POC Whole Blood Glucose 254H 03/02/20 17:57: POC Whole Blood Glucose [Pending] Height (Feet): 5 Height (Inches): 2.00 Weight (Pounds): 168 General Appearance: no apparent distress, alert EENT: normal ENT inspection Neck: normal alignment Cardiovascular: normal rate, regular rhythm Respiratory/Chest: lungs clear Abdomen: non tender, soft Extremities: no edema 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
--- NOTE | 2020-03-03 09:35 | General Progress Note ---
Assessment/Plan Assessment/Plan: Assessment - resolved GI symptoms - constipation - microcytic anemia Recommend - PO diet as tolerated - sorbitol - Outpatient EGD/Colon - patient has my card/info - understands she has responsibility to call / set up EGD?Colon Subjective Allergies: Uncoded Allergies: AVOCADOS (Allergy, Unknown, 02/27/20) Subjective Feels OK no abdominal pain c/o constipation being discharged today once again reminded to arrange for outpatient EGD/colon Objective Last 24 Hour Vital Signs Date Time Temp Pulse Resp B/P (MAP) Pulse Ox O2 Delivery O2 Flow Rate FiO2 03/03/20 08:40 131/71 03/03/20 08:40 72 131/71 03/03/20 08:40 72 131/71 03/03/20 08:38 97.9 72 18 131/71 (91) 100 03/03/20 08:37 131/71 03/03/20 04:00 98.1 71 17 138/59 (85) 98 03/03/20 04:00 71 03/03/20 00:00 98.1 70 18 135/79 (97) 98 03/03/20 00:00 72 03/02/20 21:00 Room Air 03/02/20 20:46 79 124/60 03/02/20 20:00 83 03/02/20 20:00 98.1 79 22 124/60 (81) 97 03/02/20 18:22 98.9 03/02/20 17:50 145/64 03/02/20 17:49 77 145/64 03/02/20 16:00 78 03/02/20 16:00 100.2 77 20 145/64 (91) 98 03/02/20 13:18 165/80 03/02/20 12:00 100.4 81 20 146/82 (103) 98 03/02/20 12:00 95 03/02/20 09:45 85 165/80 03/02/20 09:45 165/80 03/02/20 09:45 165/80 03/02/20 09:45 85 165/80 Laboratory Tests 03/02/20 12:36: POC Whole Blood Glucose 254H 03/02/20 17:57: POC Whole Blood Glucose [Pending] Height (Feet): 5 Height (Inches): 2.00 Weight (Pounds): 168 Objective WDWN AA Woman NCAT supple CTA RR abd Soft ND NT no edema Chidi Claudio MD Mar 03, 2020 09:35
[2020-03-03] MEDS ORDERED: Sorbitol Solution UD 30ml ORAL SCH (10:00)
--- NOTE | 2020-03-03 10:45 | NUR ---
NURSE NOTES: pt discharge home, her sister pick her up. Pt was safely DC in stable condition. straw boss, IV and medical bracelet were taken off before pt was DC. Discharge instructions were explained to pt and family member. They both verbalized understanding of instructions and medications to continue taking at home. pt was also given a new prescription to fill Urecholine. 1030Before pt left she voided about 500ml and had a bowel movement. Pt voided a second time but it wasn't able to me measured. Addendum: 03/03/20 at 1204 by Celina Sales RN NURSE NOTES: pt discharge home, her sister pick her up. Pt was safely DC in stable condition. straw boss, IV and medical bracelet were taken off before pt was DC. Discharge instructions were explained to pt and family member. They both verbalized understanding of instructions and medications to continue taking at home. She will follow up with primary within 1wk of DC. pt was also given a new prescription to fill Urecholine. pt signed belonging sheet how ever her eyeglasses were missing. she will follow up with lost and found. Before she left she spoke with security to check if they have reported her glasses. 1030Before pt left she voided about 500ml and had a bowel movement. Pt voided a second time but it wasn't able to me measured.
--- NOTE | 2020-03-03 12:04 | NUR ---
INSURANCE DC SUMMARY FAXED TO CECILLE Newell PH [phone] FAX:[phone] FAX:[phone]
--- NOTE | 2020-03-03 17:41 | General Progress Note ---
Assessment/Plan Assessment/Plan: Impression: Diabetic ketoacidosis Possible UTI /sepsis Elevated Troponin Hypertensive emergency CHF with elevated BNP Hypokalemia Acute renal failure Dehydration CAD possible urinary retention Plan IV Antibiotics- off dc home in and out cath urecholine RX has urologist and will follow up return to ER if urinary retention plans to see cards for outpatient cath impression, plan, and exam edited and reviewed in detail care discussed with RN Subjective Allergies: Uncoded Allergies: AVOCADOS (Allergy, Unknown, 02/27/20) Subjective cutler and was able to urinate has chronic urinary retention wants to go home Objective Last 24 Hour Vital Signs Date Time Temp Pulse Resp B/P (MAP) Pulse Ox O2 Delivery O2 Flow Rate FiO2 03/03/20 09:00 Room Air 03/03/20 08:40 131/71 03/03/20 08:40 72 131/71 03/03/20 08:40 72 131/71 03/03/20 08:38 97.9 72 18 131/71 (91) 100 03/03/20 08:37 131/71 03/03/20 04:00 98.1 71 17 138/59 (85) 98 03/03/20 04:00 71 03/03/20 00:00 98.1 70 18 135/79 (97) 98 03/03/20 00:00 72 03/02/20 21:00 Room Air 03/02/20 20:46 79 124/60 03/02/20 20:00 83 03/02/20 20:00 98.1 79 22 124/60 (81) 97 03/02/20 18:22 98.9 03/02/20 17:50 145/64 03/02/20 17:49 77 145/64 Laboratory Tests 03/02/20 17:57: POC Whole Blood Glucose [Pending] 03/02/20 20:31: POC Whole Blood Glucose 87 03/03/20 06:10: POC Whole Blood Glucose 186H Height (Feet): 5 Height (Inches): 2.00 Weight (Pounds): 168 Objective WDWN NAD clear breath sounds bilaterally without rhonchi or wheeze [id number] without MRG NABS nontender no HSM no CCE nonfocal Armando Duarte MD Mar 03, 2020 17:41
[2020-03-03] MEDS ORDERED: Levemir Flexpen SUBQ SCH (21:00)
--- NOTE | 2020-03-04 00:48 | Cardiology Progress Note ---
Subjective DATE OF SERVICE: Mar 03, 2020 Troponin normalized; no c/o chest pain or SOB. No fevers BP parameters have stabilized. Patient now relates recent abnormal myocardial perfusion scan prior to admission. She was told that she may need cardiac cath in the future. HDL 56 - LDL 121 Objective Last 24 Hour Vital Signs Date Time Temp Pulse Resp B/P (MAP) Pulse Ox O2 Delivery O2 Flow Rate FiO2 03/03/20 09:00 Room Air 03/03/20 08:40 131/71 03/03/20 08:40 72 131/71 03/03/20 08:40 72 131/71 03/03/20 08:38 97.9 72 18 131/71 (91) 100 03/03/20 08:37 131/71 03/03/20 04:00 98.1 71 17 138/59 (85) 98 03/03/20 04:00 71 HEENT: normal ENT inspection RHYTHM: NSR, ST, PACs LUNGS: lungs clear bilaterally CARDIAC: regular rhythm, normal S1 and S2, gallop/S4 ABDOMEN: non tender, soft, no organomegaly EXTREMITIES: non-tender, No edema Laboratory Tests Test 03/03/20 06:10 POC Whole Blood Glucose 186 MG/DL (74-106) H Assessment/Plan Assessment/Plan DKA resolved Acute myocardial infarction Hypertension/HHD Chronic diastolic CHF UTI with sepsis Hypovolemia Hypokalemia Hypophosphatemia Dyslipidemia Fevers Urinary retention Antiplatelet therapy Titrate insulin Maintain current antiHTN and anti-anginal regimen Continue statin rx Will need to schedule outpatient cardiac cath through her primary care physician Federico Brito MD Mar 04, 2020 00:48
--- NOTE | 2020-03-04 11:40 | Discharge Summary ---
Discharge Summary Discharge Summary _ Discharge summary DATE OF ADMISSION: 02/27/2020 DATE OF DISCHARGE: 03/03/2020 Dr. Harrisonjorge DISCHARGED BY: REASON FOR ADMISSION: [] 4 years old female past medical history of diabetes mellitus, hypertension, obesity, was brought by paramedics from home due to nausea, vomiting and diarrhea. Patient reported reported diffuse abdominal cramping that started at night. She reported nonbilious nonbloody vomiting as well as nonbloody diarrhea. Per trust vault clerk patient was hypertensive however patient reported not taking any of her medication. That day. She denied shortness of breath or chest pain. She denied fever and chills. She denied any focal weakness. She denied headache, dizziness or blurry vision. Patient received IV fluids and Zofran by paramedics prior to arrival to ED. Upon evaluation patient was tachycardic with heart rate 120 blood pressure was 242/130. Pulse oximetry was stable on room air. Laboratory work-up revealed leukocytosis WBC 14.4 stable hemoglobin hematocrit and platelet count. Potassium 3.4. BUN 18 creatinine 1.4. Glucose 439. Anion gap 19. Troponin 0 0.08 lactic acid 4.3 stable AST ALT and lipase. proBNP 2985. EKG revealed sinus tachycardia no acute ischemic changes Urinalysis revealed evidence of urinary tract infection +3 protein +2 ketones psychologist and was positive for marijuana. Chest x-ray revealed cardiopulmonary pathology. Patient pancultured started on empiric antibiotic patient received IV hydralazine for hypertensive urgency emergency. Blood pressure improved. Due to DKA patient received 7 units of insulin and started on insulin drip additional potassium provided. Patient received aspirin and admitted to ICU for further management CONSULTANTS: horse stud manager neurologist pulmonary ID specialist Dr. Casillas GI specialist Dr. Greer converter operator Dr. Lynn sap business objects consultant/oncologist surgery psychiatrist HOSPITAL COURSE: [] Patient admitted to ICU for management of diabetic ketoacidosis. Insulin drip provided as per protocol. Patient started on empiric antibiotics. CONCETTA inhibitor was hold. Patient was on cautious IV hydration. Lasix restarted with close monitoring of volumes and cardiorenal parameters. Dual antiplatelet therapy with aspirin and Plavix continued. Echocardiogram demonstrated preserved ejection fraction of 60%. No evidence of left ventricular hypertrophy. Serial troponin trending. Antiplatelet therapy continued. As per horse stud manager recommendation along with a beta blockage. DVT prophylaxis provided. Blood pressure was managed with beta-jun calcium channel jun Lipid panel revealed HDL 56, LDL 121. Patient educated on diabetic low-fat low cardiac diet. Patient reported recent abnormal myocardial perfusion scan prior to admission. At that time patient was told that she needed cardiac authorization in future. Patient denied chest pain or shortness of breath initially was trended up with the troponin peak of 0.43 200 started to trend down. Nitroglycerin was on board as needed.. I when anion gap closed patient started on long-acting Levemir diabetic teaching and diabetic diet provided. Current antihypertensive antianginal regimen was continued. Current antihypertensive antianginal regimen was maintained. Statin therapy continued. Insulin doses titrated as needed. Patient will need to be scheduled for outpatient cardiac authorization for her primary care physician. Renal parameters electrolytes were closely monitored renal ultrasound revealed no hydronephrosis normal bilateral kidney echogenicity. Prior to discharge BUN 15, creatinine from 1.4 down to 1.1. IV fluids discontinued. Kidney injury/ acute renal failure was likely due to dehydration. Patient noted to have urinary retention Salazar catheter was inserted subsequently Salazar catheter was discontinued voiding trial provided Urecholine was ordered added for home medication Hemoglobin A1c 7.7. Hydralazine beta-jun calcium channel jun and CONCETTA inhibitor provided for blood pressure support dual antiplatelet therapy continued patient started on Urecholine. And Flomax. DVT prophylaxis provided Supportive care provided Bowel regimen instituted. Blood cultures were negative. COVID-19 rapid COVID-19 was negative. Urine culture was negative. Leukocytosis resolved. Fevers low-grade fevers resolved. Per ID specialist patient possibly had a gastroenteritis antibiotic treatment provided and symptoms resolved. ID specialist recommended to monitor patient off antibiotic Patient clinically stabilized and was ready for discharge home. For Urecholine provided. Patient will have a urologist to follow-up as outpatient. Patient was instructed to return to emergency room if urine if urinary retention recurs. Recommended outpatient schedule outpatient cardiac catheterization through her primary care provider FINAL DIAGNOSES: Diabetic ketoacidosis resolved Acute myocardial infarction Hypertension/hypertensive heart disease with initial hypertensive emergency- resolved Chronic diastolic CHF Sepsis Possible gastroenteritis- resolved Acute renal failure due to dehydration -resolved Electrolyte imbalance : hypokalemia hypophosphatemia Dyslipidemia Urinary retention DISCHARGE MEDICATIONS: See Medication Reconciliation list. DISCHARGE INSTRUCTIONS: Patient was discharged home. Follow-up with a primary care provider in 1 week. I have been assigned to dictate discharge summary for this account. I was not involved in the patient's management. Kylah Lao NP Mar 04, 2020 11:40
== END 2020-03-03 11:10 | disposition home or self-care (01) | DRG 871 ==
LOC: EDBD 09:58 → EMR 10:16 → EDBEDREQ 10:57 → EDBEDREQSVC 10:57 → ICU 11:27 → EDBEDREQ 12:47 → 2E 02-28 09:20
DX: A41.9 Sepsis, unspecified organism (principal); E11.10 Type 2 diabetes mellitus with ketoacidosis without coma; I21.9 Acute myocardial infarction, unspecified; N17.9 Acute kidney failure, unspecified; N39.0 Urinary tract infection, site not specified; I50.32 Chronic diastolic (congestive) heart failure; I16.0 Hypertensive urgency; I11.0 Hypertensive heart disease with heart failure; Z86.73 Personal history of transient ischemic attack (TIA), and cerebral infarction without residual deficits; E87.6 Hypokalemia; E86.0 Dehydration; K52.9 Noninfective gastroenteritis and colitis, unspecified; E83.39 Other disorders of phosphorus metabolism; E78.5 Hyperlipidemia, unspecified; R33.9 Retention of urine, unspecified; E86.1 Hypovolemia
CPT/HCPCS: 36415; 71045; 74176; 76770; 80048; 80053; 80061; 80307; 81003; 82009; 82550; 82962; 83036; 83605; 83690; 83735; 83880; 84100; 84484; 85007; 85025; 85610; 85730; 87040; 87081; 87086; 93005; 93306; 96365; 96366; 96367; 99291; 99292; J1815; J7030; J8499; S5561; U0002

== ENCOUNTER 2020-03-07 08:45 | Emergency (ER) | payer OTHER ==
[~2020-03-07] VITALS: Ht 157.5 cm; Wt 725.7 kg
[~2020-03-07 08:45] MED LIST changes: +ATORVASTATIN CA20 MG ORAL; +CLOPIDOGREL75 MG ORAL; +FLOMAX0.4 MG ORAL; +URECHOLINE25 M1 ORAL; +URECHOLINE25 MG ORAL
--- NOTE | 2020-03-07 08:47 | NUR ---
ED Nurse Note: Salazar catheter 16F was placed, patient tolerated procedure well.
[2020-03-07 08:55] VITALS: BP 221/116
--- NOTE | 2020-03-07 08:55 | NUR ---
ED Nurse Note: Patient's output almost 2000 mL
--- NOTE | 2020-03-07 08:56 | NUR ---
ED Nurse Note: Patient was brought in by RA [id number] from home, due to lower abdominal pain with N/V since last night. Patient reports that she was here last saturday for the same reason and had draining of fluids from her blader. Patient presented resstless, in pain 04/30, AAO x4, VSS at this time.
--- NOTE | 2020-03-07 09:00 | NUR ---
ED Nurse Note: IV line was established on left AC 20ga, blood and urine collected sent to lab
[2020-03-07] MEDS ORDERED: NIFEdipine 10mg cap ORAL ONE (09:15)
--- NOTE | 2020-03-07 09:25 | Emergency Room Report ---
History of Present Illness General Chief Complaint: Abdominal Pain Source: Patient, Medical Record, EMS Present Illness HPI This patient was discharged from [facility] 3 days ago. She has a history of noncompliance with her medications. She is admitted frequently for hypertensive urgency and for DKA. She was discharged Saturday. She states just before discharge the Salazar catheter was removed from her bladder. She states she had had some urinary retention. She states that the catheter was taken out on Saturday and she was able to urinate after and so she was sent home. She states she had been urinating okay until yesterday. She states last night she started having pain in her lower abdomen. She states the pain is persisted throughout the night. She did urinate some and thought that that would relieve her symptoms, however, the pain persisted and has become more severe. He states that she started vomiting this morning. She denies fever or chills. She denies cough or congestion. She states that she has been urinating some. She admits that she did not take her blood pressure medicines for the past 2 days. She has no other complaints. Allergies: Uncoded Allergies: AVOCADOS (Allergy, Unknown, 02/27/20) COVID-19 Screening Contact w/high risk pt: No Experienced COVID-19 symptoms?: No COVID-19 Testing performed PIPE WELDER: No Patient History Past Medical History: see triage record, DM, HTN, CAD Social History: Reports: drug use - THC; Denies: smoking, alcohol use Now: No Reviewed Nursing Documentation: PMH: Agreed; PSxH: Agreed Nursing Documentation-PMH Past Medical History: No History, Except For Hx Cardiac Problems: Yes Hx Hypertension: Yes Hx Diabetes: Yes Hx Cancer: No Hx Gastrointestinal Problems: Yes - Nausea, Vomiting, Diarrhea Hx Neurological Problems: No Hx Cerebrovascular Accident: Yes Review of Systems All Other Systems: negative except mentioned in HPI Physical Exam Vital Signs Date Time Temp Pulse Resp B/P (MAP) Pulse Ox O2 Delivery O2 Flow Rate FiO2 03/07/20 08:40 98.4 107 18 221/116 (151) 97 Room Air Sp02 EP Interpretation: reviewed, normal General Appearance: no apparent distress, alert, GCS 15, non-toxic Head: normocephalic, atraumatic Eyes: bilateral eye normal inspection, bilateral eye PERRL ENT: hearing grossly normal, normal pharynx, no angioedema, normal voice Neck: full range of motion, supple/symm/no masses Respiratory: chest non-tender, lungs clear, normal breath sounds, no respiratory distress, no retraction, no accessory muscle use, speaking full sentences Cardiovascular #1: regular rate, rhythm, no edema Gastrointestinal: normal bowel sounds, soft, no guarding, no rebound, tenderness - TTP over the lower abdomen. Distended/palpable fullness (bladder) Rectal: deferred Musculoskeletal: back normal, normal range of motion, non-tender Neurologic: alert, motor strength/tone normal, oriented x3, sensory intact, responsive, speech normal Psychiatric: judgement/insight normal, memory normal, mood/affect normal, no suicidal/homicidal ideation Skin: no rash, normal color Medical Decision Making Diagnostic Impression: Primary Impression: Urinary retention Additional Impression: Malignant hypertension ER Course This patient presents with urinary retention. A Salazar catheter was placed and immediately returned approximately 1700 mL's of urine. The patient had resolution of her abdominal pain at that time. On arrival, the patient was tachycardic and had a systolic blood pressure of 227. The patient is noncompliant with her medications. Given the patient's history, lab work-up to include CBC, CMP, urinalysis were obtained. Overall, this patient work-up was unremarkable and benign. She has no evidence of DKA urinary tract infection. Patient will go home with a Salazar catheter with a leg bag. The patient was instructed to follow-up closely with her primary care physician and to see a urologist in approximately 72 hours for reassessment to see if the Salazar catheter can be removed and for further evaluation. The patient had complete resolution of her symptoms. The patient's blood pressure was 130/62 after getting her blood pressure medications here in the emergency department. Patient is educated on the dangers of medication noncompliance and not taking her blood pressure medications. The patient states she indicates understanding and intention to be compliant with her medications. Patient was instructed to follow-up closely with her primary care physician in the next 24 hours. Patient is given close return precautions and follow-up instructions. Laboratory Tests Test 03/07/20 09:10 White Blood Count 11.7 K/UL (4.8-10.8) H Red Blood Count 5.55 M/UL (4.20-5.40) H Hemoglobin 14.3 G/DL (12.0-16.0) Hematocrit 43.3 % (37.0-47.0) Mean Corpuscular Volume 78 FL (80-99) L Mean Corpuscular Hemoglobin 25.8 PG (27.0-31.0) L Mean Corpuscular Hemoglobin Concent 33.1 G/DL (32.0-36.0) Red Cell Distribution Width 13.7 % (11.6-14.8) Platelet Count 280 K/UL (150-450) Mean Platelet Volume 7.2 FL (6.5-10.1) Neutrophils (%) (Auto) % (45.0-75.0) Lymphocytes (%) (Auto) % (20.0-45.0) Monocytes (%) (Auto) % (1.0-10.0) Eosinophils (%) (Auto) % (0.0-3.0) Basophils (%) (Auto) % (0.0-2.0) Differential Total Cells Counted 100 Neutrophils % (Manual) 92 % (45-75) H Lymphocytes % (Manual) 6 % (20-45) L Monocytes % (Manual) 2 % (1-10) Eosinophils % (Manual) 0 % (0-3) Basophils % (Manual) 0 % (0-2) Band Neutrophils 0 % (0-8) Platelet Estimate Adequate Platelet Morphology Normal Anisocytosis 1+ Microcytosis 1+ Urine Color Pale yellow Urine Appearance Clear Urine pH 7 (4.5-8.0) Urine Specific Norman 1.005 (1.005-1.035) Urine Protein 1+ (NEGATIVE) H Urine Glucose (UA) 1+ (NEGATIVE) H Urine Ketones Negative (NEGATIVE) Urine Blood Negative (NEGATIVE) Urine Nitrite Negative (NEGATIVE) Urine Bilirubin Negative (NEGATIVE) Urine Urobilinogen Normal MG/DL (0.0-1.0) Urine Leukocyte Esterase Trace (NEGATIVE) H Urine RBC 0-2 /HPF (0 - 2) Urine WBC 0-2 /HPF (0 - 2) Urine Squamous Epithelial Cells Occasional /LPF Urine Bacteria Occasional /HPF (NONE) Sodium Level 142 MMOL/L (136-145) Potassium Level 3.7 MMOL/L (3.5-5.1) Chloride Level 103 MMOL/L (98-107) Carbon Dioxide Level 26 MMOL/L (21-32) Anion Gap 13 mmol/L (5-15) Blood Urea Nitrogen 16 mg/dL (7-18) Creatinine 1.2 MG/DL (0.55-1.30) Estimated Glomerular Filtration Rate 54.7 mL/min (>60) Glucose Level 284 MG/DL (74-106) H Calcium Level 9.7 MG/DL (8.5-10.1) Magnesium Level 1.8 MG/DL (1.8-2.4) Total Bilirubin 0.4 MG/DL (0.2-1.0) Aspartate Amino Transferase (AST) 19 U/L (15-37) Alanine Aminotransferase (ALT) 30 U/L (12-78) Alkaline Phosphatase 94 U/L (46-116) Total Protein 8.9 G/DL (6.4-8.2) H Albumin 3.9 G/DL (3.4-5.0) Globulin 5.0 g/dL Albumin/Globulin Ratio 0.8 (1.0-2.7) L Acetone Level Negative (NEGATIVE) Microbiology Date/Time Source Procedure Growth Status 03/07/20 09:25 Nasopharynx SARS-CoV-2 RdRp Gene Assay - Final Complete EKG Diagnostic Results Rate: tachycardiac Rhythm: other - S.tachycardai ST Segments: other - NSST findings. (unchanged from comparison) Rhythm Strip Diag. Results EP Interpretation: yes Rate: 80's Rhythm: NSR, no PVC's, no ectopy Last Vital Signs Date Time Temp Pulse Resp B/P (MAP) Pulse Ox O2 Delivery O2 Flow Rate FiO2 03/07/20 08:40 98.4 107 18 221/116 (151) 97 Room Air Status: improved Disposition: HOME, SELF-CARE Condition: Improved Referrals: NON PHYSICIAN (PCP) Jennifer Wilks DO Mar 07, 2020 09:25
[2020-03-07 09:28] LABS: HEMATOCRIT 43.3 % (37.0-47.0); HEMOGLOBIN 14.3 G/DL (12.0-16.0); MEAN CORPUSCULAR VOLUME 78 FL (80-99); PLATELET COUNT 280 K/UL (150-450); RED BLOOD COUNT 5.55 M/UL (4.20-5.40); RED CELL DISTRIBUTION WIDTH 13.7 % (11.6-14.8); WHITE BLOOD COUNT 11.7 K/UL (4.8-10.8)
[2020-03-07 09:45] LABS: ANION GAP 13 mmol/L (5-15); BLOOD UREA NITROGEN 16 mg/dL (7-18); CALCIUM 9.7 MG/DL (8.5-10.1); CARBON DIOXIDE 26 MMOL/L (21-32); CHLORIDE 103 MMOL/L (98-107); CREATININE 1.2 MG/DL (0.55-1.30); POTASSIUM 3.7 MMOL/L (3.5-5.1); SODIUM 142 MMOL/L (136-145)
[2020-03-07 09:49] LABS: ALANINE AMINOTRANSFERASE 30 U/L (12-78); ALBUMIN 3.9 G/DL (3.4-5.0); ALBUMIN/GLOBULIN RATIO 0.8 (1.0-2.7); ALKALINE PHOSPHATASE 94 U/L (46-116); ASPARTATE AMINO TRANSFERASE 19 U/L (15-37); BILIRUBIN,TOTAL 0.4 MG/DL (0.2-1.0)
[2020-03-07 09:50] LABS: APPEARANCE,URINE CLEAR; COLOR,URINE PALE YELLOW
[2020-03-07 09:51] LABS: BILIRUBIN, URINE NEGATIVE (NEGATIVE); GLUCOSE, URINE (UA) 1+ (NEGATIVE); KETONES,URINE NEGATIVE (NEGATIVE); LEUKOCYTE ESTERASE ,URINE TRACE (NEGATIVE); NITRITE,URINE NEGATIVE (NEGATIVE); PH,URINE 7 (4.5-8.0); PROTEIN,URINE 1+ (NEGATIVE); UROBILINOGEN,URINE NORMAL MG/DL (0.0-1.0)
[2020-03-07 11:00] VITALS: BP 227/128
--- NOTE | 2020-03-07 11:00 | NUR ---
ER DISCHARGE NOTE: Patient is cleared to be discharged per ERMD, pt is aox4, on room air, with stable vital signs. pt was given dc and prescription instructions, pt was able to verbalize understanding, pt id band and iv site removed without complications. pt is able to ambulate with steady gait. pt took all belongings.
== END 2020-03-07 11:01 | disposition home or self-care (01) ==
LOC: EDBD 08:45 → EMR 08:58
DX: R33.9 Retention of urine, unspecified (principal); I10 Essential (primary) hypertension; E11.9 Type 2 diabetes mellitus without complications; Z91.018 Allergy to other foods; R10.30 Lower abdominal pain, unspecified; I25.10 Atherosclerotic heart disease of native coronary artery without angina pectoris; I11.9 Hypertensive heart disease without heart failure; R00.0 Tachycardia, unspecified; Z86.73 Personal history of transient ischemic attack (TIA), and cerebral infarction without residual deficits
CPT/HCPCS: 36415; 51702; 80053; 81003; 82009; 83735; 85007; 85025; 93005; 96361; 96374; 99284; J2405; J7030; U0002

== ENCOUNTER 2020-03-09 11:02 | Emergency (ER) | payer OTHER ==
[~2020-03-09] VITALS: Ht 160 cm; Wt 72.6 kg
[2020-03-09 11:19] VITALS: BP 131/75
--- NOTE | 2020-03-09 11:51 | Emergency Room Report ---
History of Present Illness General Chief Complaint: Female Urogenital Problems Source: Patient Present Illness HPI Disclaimer: Please note that this report is being documented using DRAGON technology. This can lead to erroneous entry secondary to incorrect interpretation by the dictating instrument. HPI: 64-year-old female presents for evaluation of Salazar catheter discomfort. She was seen in the emergency department 03/07 shortly after being discharged from this hospital for admission of DKA. She had urinary retention and a Salazar catheter was placed. No infection was noted. She was scheduled to follow-up with her PMD later today for a phone call but awoke this morning with some discomfort around the Salazar catheter. Denied leakage, bleeding, change in appearance of urine, fever, chills, lower abdominal pain. She states the discomfort was around the Salazar catheter insertion site itself. She may have pulled it while sleeping but cannot be sure. Does not recall any other trauma. Denies any weakness lower extremity, back pain, fever, chills, vomiting, diarrhea otherwise. Salazar catheter has been putting out good output. PMH: Hypertension, diabetes, prior DKA, medication noncompliance, urinary retention PSH: Reviewed Allergies: Reviewed Social Hx: Reviewed Allergies: Uncoded Allergies: AVOCADOS (Allergy, Unknown, 02/27/20) COVID-19 Screening Contact w/high risk pt: No Experienced COVID-19 symptoms?: No COVID-19 Testing performed PRINTER APPRENTICE: No Nursing Documentation-PMH Hx Cardiac Problems: Yes Hx Hypertension: Yes Hx Diabetes: Yes Hx Cancer: No Hx Gastrointestinal Problems: Yes - Nausea, Vomiting, Diarrhea Hx Neurological Problems: No Hx Cerebrovascular Accident: Yes Review of Systems All Other Systems: negative except mentioned in HPI Physical Exam Vital Signs Date Time Temp Pulse Resp B/P (MAP) Pulse Ox O2 Delivery O2 Flow Rate FiO2 03/09/20 11:15 98.1 85 18 131/75 (93) 97 Room Air General: Awake and alert, no acute distress HEENT: NC/AT. EOMI. Resp: Normal work of breathing Abdomen: Obese abdomen. Nontender, nondistended, no masses, negative rebound. : Normal-appearing external genitalia. No evidence of skin breakdown or bleeding. Salazar catheter in place. No surrounding edema, bleeding, leakage. Clear yellow urine in Salazar bag. No blood. Skin: Intact. No abrasions, laceration or rash over the exposed skin MSK: Normal tone and bulk. Moving all extremities. No obvious deformity. Neuro: Awake and alert. Mentating appropriately Medical Decision Making Diagnostic Impression: Primary Impression: UTI (urinary tract infection) ER Course Is a 64-year-old female presenting with Salazar catheter discomfort. For small trauma, urinary tract infection, dislodgment of catheter. Patient's abdomen is nontender, no back pain no evidence of cauda equina syndrome, spinal epidural abscess or other significant pathology. Urinalysis was obtained showing evidence of an acute urinary tract infection. Patient requested discontinuation of Salazar and it was removed. She was treated with Bactrim for UTI will send for culture and sensitivity. Patient reports feeling well and would like to be discharged home. She states she would retain if she is unable to urinate later. Otherwise, she will follow-up with her PMD. Discussed reasons to return to the ED. She understands and agrees with treatment plan. Laboratory Tests Test 03/09/20 12:10 Urine Color Yellow Urine Appearance Slightly cloudy Urine pH 6 (4.5-8.0) Urine Specific [place] 1.015 (1.005-1.035) Urine Protein 4+ (NEGATIVE) H Urine Glucose (UA) Negative (NEGATIVE) Urine Ketones Negative (NEGATIVE) Urine Blood 5+ (NEGATIVE) H Urine Nitrite Negative (NEGATIVE) Urine Bilirubin Negative (NEGATIVE) Urine Urobilinogen Normal MG/DL (0.0-1.0) Urine Leukocyte Esterase 1+ (NEGATIVE) H Urine RBC Tntc /HPF (0 - 2) H Urine WBC 15-20 /HPF (0 - 2) H Urine Squamous Epithelial Cells Moderate /LPF (NONE/OCC) H Urine Bacteria Moderate /HPF (NONE) H Last Vital Signs Date Time Temp Pulse Resp B/P (MAP) Pulse Ox O2 Delivery O2 Flow Rate FiO2 03/09/20 11:19 98.1 18 131/75 97 Room Air 03/09/20 11:15 85 Disposition: HOME, SELF-CARE Condition: Stable Scripts Trimethoprim/Sulfamethoxazole 160/800* (BACTRIM DS TABLET*) 1 Each Tablet 1 TAB ORAL Q12H for 7 Days, #14 TAB 0 Refills Prov: Philip Liz MD 03/09/20 Referrals: NON PHYSICIAN (PCP) Philip Liz MD Mar 09, 2020 11:51
[2020-03-09 12:26] LABS: APPEARANCE,URINE SLIGHTLY CLOUDY; BILIRUBIN, URINE NEGATIVE (NEGATIVE); GLUCOSE, URINE (UA) NEGATIVE (NEGATIVE); KETONES,URINE NEGATIVE (NEGATIVE); LEUKOCYTE ESTERASE ,URINE 1+ (NEGATIVE); NITRITE,URINE NEGATIVE (NEGATIVE); PH,URINE 6 (4.5-8.0); PROTEIN,URINE 4+ (NEGATIVE); UROBILINOGEN,URINE NORMAL MG/DL (0.0-1.0)
[2020-03-09 12:29] LABS: COLOR,URINE YELLOW
[2020-03-09] MEDS ORDERED: BACTRIM DS TAB1 EAC1 ORAL (12:53)
[2020-03-09] MEDS ORDERED: Bactrim-DS 1 tab ORAL ONE (13:00)
[2020-03-09 13:13] VITALS: BP 131/75
== END 2020-03-09 13:15 | disposition home or self-care (01) ==
LOC: EMR 11:37
DX: N39.0 Urinary tract infection, site not specified (principal); T83.84XA Pain due to genitourinary prosthetic devices, implants and grafts, initial encounter; X58.XXXA Exposure to other specified factors, initial encounter; Y92.9 Unspecified place or not applicable; E11.9 Type 2 diabetes mellitus without complications; I10 Essential (primary) hypertension; Z86.73 Personal history of transient ischemic attack (TIA), and cerebral infarction without residual deficits; Z91.018 Allergy to other foods
CPT/HCPCS: 81003; 87086; 87181; 99283

== ENCOUNTER 2020-03-23 21:00 | Emergency (ER) | payer OTHER ==
[~2020-03-23] VITALS: Ht 157.5 cm; Wt 74.8 kg
[~2020-03-23 21:00] MED LIST changes: +BACTRIM DS TAB1 EAC1 ORAL
--- NOTE | 2020-03-23 21:08 | NUR ---
ED Nurse Note: Patient brought in by ambulance [id number] from home d/t lower abdominal pain 01/28 with constipation that started today. Patient aao x 4 and ambulatory with steady gait. Patient states she used an enema today and pain was relieved prior to EMS arriving. Patient changed into gown and placed on site monitor. No acute distress noted during assessment.
[2020-03-23 21:11] VITALS: BP 161/86
[2020-03-23 21:29] LABS: BASOPHILS % (AUTO) 1.1 % (0.0-2.0); EOSINOPHILS % (AUTO) 2.3 % (0.0-3.0); HEMATOCRIT 39.4 % (37.0-47.0); HEMOGLOBIN 13.3 G/DL (12.0-16.0); MEAN CORPUSCULAR VOLUME 78 FL (80-99); MONOCYTES % (AUTO) 8.6 % (1.0-10.0); PLATELET COUNT 296 K/UL (150-450); RED BLOOD COUNT 5.08 M/UL (4.20-5.40); RED CELL DISTRIBUTION WIDTH 14.1 % (11.6-14.8); WHITE BLOOD COUNT 8.5 K/UL (4.8-10.8)
[2020-03-23 21:36] LABS: APPEARANCE,URINE CLEAR; BILIRUBIN, URINE NEGATIVE (NEGATIVE); COLOR,URINE PALE YELLOW; GLUCOSE, URINE (UA) NEGATIVE (NEGATIVE); KETONES,URINE NEGATIVE (NEGATIVE); LEUKOCYTE ESTERASE ,URINE 1+ (NEGATIVE); NITRITE,URINE NEGATIVE (NEGATIVE); PH,URINE 8 (4.5-8.0); PROTEIN,URINE 1+ (NEGATIVE); UROBILINOGEN,URINE NORMAL MG/DL (0.0-1.0)
--- NOTE | 2020-03-23 21:38 | Emergency Room Report ---
History of Present Illness General Chief Complaint: Abdominal Pain Source: Patient Present Illness HPI Disclaimer: Please note that this report is being documented using ezTaxi[employer] technology. This can lead to erroneous entry secondary to incorrect interpretation by the dictating instrument. HPI: 64-year-old female history of diabetes, hypertension, presented from home due to abdominal pain, nausea vomiting and constipation. She states she has not had a good bowel movement in about 5 days. She used an enema today with minimal but some relief. She denies any fevers. She has a history of medication noncompliance and was admitted for diabetic ketoacidosis earlier this month. She denies any urinary complaints. Allergies: Uncoded Allergies: AVOCADOS (Allergy, Unknown, 02/27/20) COVID-19 Screening Contact w/high risk pt: No Experienced COVID-19 symptoms?: No COVID-19 Testing performed MOTOR LODGE CLERK: No Patient History Last Menstrual Period: n/a Now: No Reviewed Nursing Documentation: PMH: Agreed; PSxH: Agreed Nursing Documentation-PMH Past Medical History: No History, Except For Hx Cardiac Problems: Yes Hx Hypertension: Yes Hx Diabetes: Yes Hx Cancer: No Hx Gastrointestinal Problems: Yes - Nausea, Vomiting, Diarrhea Hx Neurological Problems: No Hx Cerebrovascular Accident: Yes Review of Systems All Other Systems: negative except mentioned in HPI Physical Exam Vital Signs Date Time Temp Pulse Resp B/P (MAP) Pulse Ox O2 Delivery O2 Flow Rate FiO2 03/23/20 21:00 97.9 100 18 139/75 (96) 98 Room Air Sp02 EP Interpretation: reviewed, normal General Appearance: well appearing, no apparent distress Head: normocephalic, atraumatic Eyes: bilateral eye PERRL, bilateral eye EOMI ENT: hearing grossly normal, moist mucus membranes Neck: full range of motion, supple Respiratory: lungs clear, normal breath sounds, no rhonchi, no respiratory distress, no retraction, no wheezing Cardiovascular #1: normal peripheral pulses, regular rate, rhythm, no murmur Gastrointestinal: soft, no guarding, distended, tenderness - Lower abdominal tenderness Neurologic: alert, oriented x3, no focal defects Skin: normal color, warm/dry Medical Decision Making Diagnostic Impression: Primary Impression: Abdominal pain Additional Impression: Constipation ER Course MDM: Differential diagnosis included but not limited to constipation, obstruction, gastroparesis, ileus, to name a few Clinical course-IV, laboratory studies were sent, CT scan of the abdomen pelvis ordered. CT scan demonstrated evidence of a distended urinary bladder. Patient has a history of urinary retention. Salazar catheter was placed with relief of patient's pain. She is already on oral antibiotic for history of UTI. Discharge home with Salazar catheter in place and have her follow-up with her primary care doctor in 3 to 5 days for a voiding trial. Labs - Laboratory Tests Test 03/23/20 21:14 03/23/20 21:20 White Blood Count 8.5 K/UL (4.8-10.8) Red Blood Count 5.08 M/UL (4.20-5.40) Hemoglobin 13.3 G/DL (12.0-16.0) Hematocrit 39.4 % (37.0-47.0) Mean Corpuscular Volume 78 FL (80-99) L Mean Corpuscular Hemoglobin 26.2 PG (27.0-31.0) L Mean Corpuscular Hemoglobin Concent 33.8 G/DL (32.0-36.0) Red Cell Distribution Width 14.1 % (11.6-14.8) Platelet Count 296 K/UL (150-450) Mean Platelet Volume 7.2 FL (6.5-10.1) Neutrophils (%) (Auto) 65.0 % (45.0-75.0) Lymphocytes (%) (Auto) 23.0 % (20.0-45.0) Monocytes (%) (Auto) 8.6 % (1.0-10.0) Eosinophils (%) (Auto) 2.3 % (0.0-3.0) Basophils (%) (Auto) 1.1 % (0.0-2.0) Sodium Level 142 MMOL/L (136-145) Potassium Level 3.6 MMOL/L (3.5-5.1) Chloride Level 106 MMOL/L (98-107) Carbon Dioxide Level 24 MMOL/L (21-32) Anion Gap 12 mmol/L (5-15) Blood Urea Nitrogen 16 mg/dL (7-18) Creatinine 1.0 MG/DL (0.55-1.30) Estimated Glomerular Filtration Rate > 60 mL/min (>60) Glucose Level 197 MG/DL (74-106) H Calcium Level 9.9 MG/DL (8.5-10.1) Total Bilirubin 0.4 MG/DL (0.2-1.0) Aspartate Amino Transferase (AST) 21 U/L (15-37) Alanine Aminotransferase (ALT) 29 U/L (12-78) Alkaline Phosphatase 102 U/L (46-116) Total Protein 8.4 G/DL (6.4-8.2) H Albumin 3.8 G/DL (3.4-5.0) Globulin 4.6 g/dL Albumin/Globulin Ratio 0.8 (1.0-2.7) L Lipase 127 U/L (73-393) Urine Color Pale yellow Urine Appearance Clear Urine pH 8 (4.5-8.0) Urine Specific [place] 1.010 (1.005-1.035) Urine Protein 1+ (NEGATIVE) H Urine Glucose (UA) Negative (NEGATIVE) Urine Ketones Negative (NEGATIVE) Urine Blood Negative (NEGATIVE) Urine Nitrite Negative (NEGATIVE) Urine Bilirubin Negative (NEGATIVE) Urine Urobilinogen Normal MG/DL (0.0-1.0) Urine Leukocyte Esterase 1+ (NEGATIVE) H Urine RBC 0 /HPF (0 - 2) Urine WBC 10-15 /HPF (0 - 2) H Urine Squamous Epithelial Cells Moderate /LPF (NONE/OCC) H Urine Bacteria Moderate /HPF (NONE) H Urine Yeast Many /HPF (NONE) H On reevaluation: Pain resolved Plan-plan will be to discharge home Salazar catheter in place continue p.o. Bactrim, will start patient on a laxative. CT/MRI/US Diagnostic Results CT/MRI/US Diagnostic Results : Imaging Test Ordered: CT abdomen and pelvis Impression Impression: 1. Coronary calcification. 2. Moderately distended urinary bladder with upstream bilateral hydroureter and greater than left mild/moderate hydronephrosis. Negative for obstructive uropathy. Last Vital Signs Date Time Temp Pulse Resp B/P (MAP) Pulse Ox O2 Delivery O2 Flow Rate FiO2 03/23/20 21:11 100 22 Room Air 03/23/20 21:11 97.9 161/86 100 Disposition: HOME, SELF-CARE Condition: Improved Scripts Polyethylene Glycol 3350* (MIRALAX*) 17 Gm Powd.pack 17 GM ORAL DAILY, #30 PACKET Prov: Jay Smith M.D. 03/23/20 Jay Smith M.D. Mar 23, 2020 21:38
[2020-03-23 21:42] LABS: ANION GAP 12 mmol/L (5-15); BLOOD UREA NITROGEN 16 mg/dL (7-18); CALCIUM 9.9 MG/DL (8.5-10.1); CARBON DIOXIDE 24 MMOL/L (21-32); CHLORIDE 106 MMOL/L (98-107); POTASSIUM 3.6 MMOL/L (3.5-5.1); SODIUM 142 MMOL/L (136-145)
[2020-03-23 21:46] LABS: ALANINE AMINOTRANSFERASE 29 U/L (12-78); ALBUMIN 3.8 G/DL (3.4-5.0); ALBUMIN/GLOBULIN RATIO 0.8 (1.0-2.7); ALKALINE PHOSPHATASE 102 U/L (46-116); ASPARTATE AMINO TRANSFERASE 21 U/L (15-37); BILIRUBIN,TOTAL 0.4 MG/DL (0.2-1.0)
--- NOTE | 2020-03-23 22:04 | Diagnostic Imaging Report ---
CT abdomen and pelvis without contrast History: Abdominal pain Technique: Axial noncontrast CT of the abdomen and pelvis with coronal, sagittal reformatted images. Technique more: CTDI is 8 mGy and DLP is 398.1 mGy-cm. Technique more: One or more of the following dose reduction techniques were used: automated exposure control, adjustment of the mA and/or kV according to patient size, use of iterative reconstruction technique. Comparison: 02/27/2020 Findings: Lung bases: Linear atelectasis of the left lung base. Distal heart and esophagus: Left greater than right coronary calcification. Small hiatal hernia. Multiple small 9-12 mm lymph nodes noted at the level of the gastrohepatic ligament and periportal region. Liver: Right hepatic calcified granuloma. Gallbladder: Normal Spleen: Normal Pancreas: Normal Adrenals: Normal Kidneys: Moderately distended urinary bladder. Mild distention of bilateral upstream ureters with moderate right, mild left hydronephrosis. Negative for any obstructive uropathy. Aorta: Normal caliber. Peripheral atherosclerotic calcification. Lymph nodes: Gastrohepatic, periportal 9-12 mm lymph nodes. Negative for any significant mesenteric or retroperitoneal lymphadenopathy. Bowel: Nondistended stomach. Normal caliber of the small bowel loops. Appendix is visualized and normal. Scattered colonic stool. No inflammatory changes signs for obstruction. Pelvis: Uterus to the right of the midline. Moderately distended urinary bladder as above. Negative for any pelvic sidewall or inguinal lymphadenopathy. Negative for hernia. Bones: No lytic or blastic bony lesion. Impression: 1. Coronary calcification. 2. Moderately distended urinary bladder with upstream bilateral hydroureter and greater than left mild/moderate hydronephrosis. Negative for obstructive uropathy.
[2020-03-23] MEDS ORDERED: MIRALAX17 G2 ORAL (22:10)
--- NOTE | 2020-03-23 22:10 | NUR ---
ED Nurse Note: Per Dr. Smith, insert cutler cath d/t distended bladder from CT scan.
[2020-03-23 22:39] VITALS: BP 132/89
--- NOTE | 2020-03-23 22:39 | NUR ---
ER DISCHARGE NOTE: Patient is cleared to be discharged per ERMD, pt is aox4, on room air, with stable vital signs. pt was given dc and prescription instructions, pt was able to verbalize understanding, pt id band and iv site removed intact without complications. pt is able to ambulate with steady gait. pt took all belongings. pt given instructions on how to empty and maintain urinary cath care, pt verbalized understanding. pt discharged stable accompanied by son.
== END 2020-03-23 22:39 | disposition home or self-care (01) ==
LOC: EDUNIT# 21:00 → EDBD 21:00 → EMR 21:15
DX: K59.00 Constipation, unspecified (principal); R33.9 Retention of urine, unspecified; R10.30 Lower abdominal pain, unspecified; I11.9 Hypertensive heart disease without heart failure; E11.9 Type 2 diabetes mellitus without complications; Z86.73 Personal history of transient ischemic attack (TIA), and cerebral infarction without residual deficits; Z91.018 Allergy to other foods
CPT/HCPCS: 36415; 51702; 74176; 80053; 81003; 83690; 85025; 87086; 99284

== ENCOUNTER 2020-04-28 09:19 | Inpatient (IN) | payer MEDICARE, MEDICAID ==
[2020-04-28] VITALS (8 sets, daily range): BP systolic 144–231; BP diastolic 89–117
[~2020-04-28] VITALS: Ht 157.5 cm; Wt 72.8 kg
[~2020-04-28 09:19] MED LIST changes: +MIRALAX17 G2 ORAL
--- NOTE | 2020-04-28 09:28 | Emergency Room Report ---
History of Present Illness General Chief Complaint: To Be Triaged Source: Patient Present Illness HPI 64-year-old female with past medical history of diabetes, hypertension, dyslipidemia, marijuana use presents to the emergency department with complaint of abdominal pain and abdominal distention. She states that she has had difficulty urinating over the past several months and often requires ER visitation for Cutler catheter. She was previously placed on Flomax and has a follow-up to see a urologist next week. She denies back pain, saddle anesthesia, bowel or bladder incontinence, nausea, vomiting, diarrhea, polyuria, polydipsia, melena, hematochezia, chest pain, back pain or shortness of breath. The patient's symptoms were gradual onset, severity was moderate, duration since 2 days. Quality: Aching Past medical history: Diabetes, hypertension, dyslipidemia, marijuana use Past surgical history: none Smoking: Denies Alcohol use: Denies Drug use: Polysubstance abuse Review of systems: CONST: No fevers or chills, No night sweats PULMONARY: No productive cough, No shortness of breath CARDIAC: No chest pain, No palpitations GI: No vomiting, No diarrhea , No melena_or_BRBPR : No dysuria, No hematuria, No discharge NEURO: No new_focal_weakness_or_numbness, No confusion, No vision changes 14 point Review of Systems is otherwise negative except per HPI Physical Exam: GENERAL: Awake_alert_ nontoxic, no acute distress Spo2 99% on RA -normal. Not encephalopathic. EYES: Extraocular muscles are intact. Conjunctivae clear. Lids without swelling ENT: External nose and ear normal_in_appearance. Oropharynx clear. Head_atraumatic, Moist_oral_mucosa NECK: No JVD. No meningismus. No thyromegaly. Supple. Trachea midline RESP: Normal respiratory effort. Symmetric rise. No stridor. Clear_to_au scultation_No_rales_No_wheezes CARDIAC: Tachycardic and regular rhytm. No_significant pedal edema. ABDOMEN: Soft. Lower abdominal distention. Suprapubic tenderness to palpation_No_rebound_or_guarding. No CVA tenderness to palpation MSK: Normal muscle tone, without rigidity. Extremities without asymmetric deformity or swelling. SKIN: Warm and dry. No visible cyanosis or pallor NEUROLOGIC: Alert, oriented x3. Motor_and_sensation_grossly_intact. No truncal ataxia. Gait_normal. No nystagmus. No ataxia. No pronator drift Psych: Normal mood and affect, normal judgment and insight - COORDINATION OF CARE Case was discussed with: Patient Any labs and imaging that were ordered were interpreted as part of the medical decision making: Medical Decision Making/Plan: Differential diagnosis includes cholecystitis, choledocholithiasis, hepatitis, small bowel obstruction, volvulus, AAA, pancreatitis, atypical appendicitis, gastroparesis, gastritis, peptic ulcer disease, among others. Patient is noted to have severely elevated blood pressure (SBP > 240MMHG AND MAP 159) concerning for hypertensive emergency. She also has abdominal pain out of proportion. I did a bedside E fast examination that was negative for gross free abdominal fluid. Abdominal aorta is non-aneurysmal. The bladder is heavily distended. Cutler catheter was inserted with 1.4L of urine immediately collected. CTA was negative for AAA, dissection, mesenteric ischemia, thrombus, or acute surgical pathology. Did incidentally find colitis and free fluid of the L paracolic gutter. Abdominal exam continues to be non tender and non peritoneal after cutler insertion. Labs show mild hypokalemia. No evidence of DKA. EKG shows left ventricular hypertrophy and sinus tachycardia without acute ischemia. ED intervention included labetalol IV, hydralazine IV with adequate lower of BP ~30% The patient denies any bloody stool and has no pain out of proportion to exam, and no significant risk factors for mesenteric ischemia such as atrial fibrillation or severe PAD/PVD (peripheral arterial / vascular disease), thus definitive workup to rule out mesenteric ischemia was not pursued. The patients symptoms are not consistent with ACS (acute coronary syndrome), symptoms are not exertional, EKG without obvious ischemic change. I spoke with Dr. Brito, and reviewed the patients presentation, workup, results, and treatment. They will admit the patient for further care and evaluation, and assume care of the patient at this time. Allergies: Uncoded Allergies: AVOCADOS (Allergy, Unknown, 02/27/20) COVID-19 Screening Contact w/high risk pt: No Experienced COVID-19 symptoms?: No Nursing Documentation-PMH Hx Cardiac Problems: Yes Hx Hypertension: Yes Hx Diabetes: Yes Hx Cancer: No Hx Gastrointestinal Problems: Yes - Nausea, Vomiting, Diarrhea Hx Neurological Problems: No Hx Cerebrovascular Accident: Yes Physical Exam Sp02 EP Interpretation: reviewed, normal Medical Decision Making Diagnostic Impression: Primary Impression: Abdominal pain Additional Impressions: Hypertensive emergency Urinary retention Hypokalemia EKG Diagnostic Results Troponin ordered: Yes When was troponin ordered?: Apr 28, 2020 EKG Time: 10:45 EP Interpretation: nl Rate: tachycardiac Rhythm: NSR ST Segments: no acute changes PA Scribe Text 12-lead EKG (interpreted by me) Time: 0944 Indication: Rhythm analysis Tracing visualized and Interpreted by me. Rhythm: Sinus tachycardia Rate: 105 bpm QTc: 470 Morphology: No_significant_ST_elevations_or_depressions, No STEMI Impression: Sinus tachycardia, LVH, normal axis, normal intervals Rhythm Strip Diag. Results Rhythm Strip Time: 10:46 EP Interpretation: yes Rate: 100 Rhythm: no PVC's, no ectopy Reevaluation Time: 10:46 Status: improved Disposition: ADMITTED INPATIENT Admit Decision Time: 10:46 Condition: Stable Shayla Merida D.O. Apr 28, 2020 09:28
--- NOTE | 2020-04-28 09:43 | NUR ---
ED Nurse Note: Pt walked into ED w/ lower abdominal pain 10/10 for 3 days. Pt states she hasn't pooped or urinated for 3 days. Abdomen is firm. Pt is alert and orientedx4, ambulatory. Set up on monitor. IV established and blood sent to lab.
[2020-04-28 09:59] LABS: BASOPHILS % (AUTO) 2.2 % (0.0-2.0); HEMATOCRIT 45.7 % (37.0-47.0); HEMOGLOBIN 15.4 G/DL (12.0-16.0); LYMPHOCYTES % (AUTO) 15.9 % (20.0-45.0); MEAN CORPUSCULAR VOLUME 75 FL (80-99); MONOCYTES % (AUTO) 4.4 % (1.0-10.0); NEUTROPHILS % (AUTO) 77.6 % (45.0-75.0); PLATELET COUNT 280 K/UL (150-450); RED BLOOD COUNT 6.09 M/UL (4.20-5.40); WHITE BLOOD COUNT 9.6 K/UL (4.8-10.8)
[2020-04-28 10:10] LABS: CALCIUM 9.9 MG/DL (8.5-10.1); CREATININE 1.2 MG/DL (0.55-1.30); POTASSIUM 3.1 MMOL/L (3.5-5.1)
[2020-04-28 10:14] LABS: ALBUMIN 4.3 G/DL (3.4-5.0); BILIRUBIN,TOTAL 0.5 MG/DL (0.2-1.0)
[2020-04-28] MEDS ORDERED: Omnipaque 350 100ml vial INJ PRN ×2 (10:15)
[2020-04-28] MEDS ORDERED: Labetalol 5mg/ml 20ml vial IV ONE ×4 (10:15→16:00)
--- NOTE | 2020-04-28 10:20 | NUR ---
ED Nurse Note: Pt injected herself with 14 units Novolog from home while no one was in room. ERMD notified. Pt was educated about not using home medds prior to injection.
[2020-04-28 10:51] LABS: APPEARANCE,URINE CLEAR; BILIRUBIN, URINE NEGATIVE (NEGATIVE); COLOR,URINE PALE YELLOW; GLUCOSE, URINE (UA) 2+ (NEGATIVE); KETONES,URINE 2+ (NEGATIVE); LEUKOCYTE ESTERASE ,URINE NEGATIVE (NEGATIVE); NITRITE,URINE NEGATIVE (NEGATIVE); PH,URINE 7 (4.5-8.0); PROTEIN,URINE 3+ (NEGATIVE); UROBILINOGEN,URINE NORMAL MG/DL (0.0-1.0)
[2020-04-28] MEDS ORDERED: ATORVASTATIN CA40 MG ORAL (11:29)
[2020-04-28] MEDS ORDERED: ADALAT10 MG ORAL (11:29)
[2020-04-28] MEDS ORDERED: NOVOLOG100 UNITS1 SUBQ (11:29)
[2020-04-28] MEDS ORDERED: FLOMAX0.4 MG ORAL (11:29)
[2020-04-28] MEDS ORDERED: METFORMIN HCL500 M1 ORAL (11:29)
[2020-04-28] MEDS ORDERED: GABAPENTIN400 MG ORAL (11:29)
--- NOTE | 2020-04-28 11:46 | Diagnostic Imaging Report ---
CLINICAL INDICATION:Chest pain and abdominal pain, abdominal distention TECHNIQUE: Arterial phase spiral acquisitions obtained through the chest, abdomen, and pelvis. Multiplanar and 3-D reconstructions were generated. Total dose length product 490 mGycm. CTDIvol(s) 53 mGy. Radiation dose was minimized using automated exposure control COMPARISON: Abdomen pelvis compared to 03/23/[address] No comparison chest CT FINDINGS Chest: There is no evidence of thoracic aortic aneurysm or dissection demonstrated. Common origin of the right brachiocephalic and left common carotid arteries is noted; otherwise normal caliber and branching anatomy of the great neck vessels. Study protocol is not tailored for evaluation of pulmonary embolus, but the pulmonary arteries are nonetheless fairly well opacified and there are no findings to suggest acute pulmonary embolus. The pulmonary arteries are normal in caliber. There is generalized four-chamber mild cardiomegaly but no evidence of right ventricular dilatation. The lungs demonstrate diffuse mosaic perfusion pattern. No infiltrates, effusions, masses, or nodules. No pericardial effusion. No mediastinal or hilar mass or adenopathy. The thyroid is unremarkable. No axillary or chest wall mass or adenopathy. Abdomen pelvis: No evidence of abdominal aortic aneurysm or dissection. There is mild hard and soft atherosclerotic plaquing of the distal abdominal aorta. The major visceral vessels are patent, nonstenotic. The bilateral common and external iliac arteries are patent, nonstenotic. The appendix is normal. There is equivocal mild wall thickening of the colon diffusely, as well as equivocal minimal pericolonic fat stranding. There are colonic diverticula. No evidence of diverticulitis. No small bowel distention. There is fluid tracking along anterior Gerota's fascia for short distance inferior to the pancreatic tail. The pancreas itself appears unremarkable. There is also some fluid in the left paracolic gutter and surrounding the left kidney. There is minimal fluid surrounding the right kidney. There is trace free fluid surrounding the spleen. The fluid is a new finding since prior exam No free intraperitoneal gas. The gallbladder contains some mural calcifications. A calcification is seen within segment 5 of the liver. No other focal liver lesions. The bile ducts are unremarkable. No intrinsic parenchymal abnormality; pancreas is not swollen. The spleen, adrenals are unremarkable no intrinsic renal abnormality demonstrated. No renal or ureteral calculi, hydronephrosis, or hydroureter. The bladder is nondistended, contains a Salazar catheter. The bladder was previously very distended. The uterus and adnexal structures are unremarkable. There are degenerative changes of the lower lumbar spine, mild. IMPRESSION: No evidence of thoracic or abdominal aortic aneurysm or dissection or other acute vascular pathology Equivocal mild diffuse colonic wall thickening and equivocal minimal pericolonic fat stranding; if real, could indicate diffuse colitis, nonspecific as regards etiology. Doubt ischemia given evidence of visceral vascular patency. Small amount of free intraperitoneal fluid as well as fluid tracking along Gerota's fascia and the left paracolic gutter. Etiology uncertain Other findings as noted, including degenerative spondylosis, Salazar catheter, mural gallbladder calcification, hepatic calcification The CT scanner at [facility] is accredited by the [employer] and the scans are performed using protocols designed to limit radiation exposure to as low as reasonably achievable to attain images of sufficient resolution adequate for diagnostic evaluation.
[2020-04-28] MEDS ORDERED: Enalaprilat 2.5mg/2ml Inj IV ONE (12:15)
--- NOTE | 2020-04-28 12:30 | NUR ---
ED Nurse Note: ERMD notified that pt BP still 230/118.
--- NOTE | 2020-04-28 14:33 | Diagnostic Imaging Report ---
Indication: Chest pain Technique: One view of the chest Comparison: 02/27/2020 Findings: Lungs and pleural spaces are clear. Heart size is normal. No significant change Impression: No acute process
--- NOTE | 2020-04-28 15:00 | NUR ---
ED Nurse Note: Dr Brito notified that BP 233/107.
[2020-04-28] MEDS ORDERED: NovoLOG Insulin Flexpen SUBQ SCH (16:50)
--- NOTE | 2020-04-28 18:12 | NUR ---
ED Nurse Note: Pt transferred with all belongings to SDU unit. No acute distress. Pt is a&ox4.
--- NOTE | 2020-04-28 18:20 | NUR ---
ED Nurse Note: Bedside report given to Roopa LOPEZ SDU.
--- NOTE | 2020-04-28 18:25 | NUR ---
NURSE NOTES: Received pt from ED and report given by Kerline Barnhart RN.pt brought to SDU per Franny awake,alert ,in no resp distress ,pt on RA,with Salazar cath draining yellow urine,IV site to RAC intact,skin warm and dry ,afebrile BP 210/120,pt denies any c/o dizziness or headache,SR up x2 HOB elevated bed lock in lowest position,will continue to monitor pt.
--- NOTE | 2020-04-28 19:00 | NUR ---
HAND-OFF: Report given to Andrew Suarez RN/Maribel Chirinos RN..
--- NOTE | 2020-04-28 19:30 | NUR ---
NURSE NOTES: Received pt from JESSICA Blas. Pt is lying in bed. not in distress, on RA, Denies pain but noted discomfort in the abdomen. Pt is able to move all extremities 5/5 on all bilateral upper and lower extremities. Symmetrical facial expression is noted. Vitals are BP= 144/101, HR= 111, O2 99%. Peripheral IV in right AC 20 G is patent and intact. Will continue to closely monitor the patient. Will continue with plan of care.
[2020-04-28] MEDS: NovoLOG Insulin Flexpen SUBQ SCH (21:27)
[2020-04-28] MEDS ORDERED: Zolpidem 5mg tab ORAL PRN (23:45)
[2020-04-29] VITALS: BP 148/76
--- NOTE | 2020-04-29 | NUR ---
NURSE NOTES: Dr. Brito notified regarding patient's BP 170/100, and abdominal discomfort. New order received and carried out. Pt denies any pain at this time. Pt appears calm and comfortable. Will continue to monitor pt.
[2020-04-29] MEDS: HydrALAZINE 50mg tab ORAL SCH ×4 (00:08→17:15)
--- NOTE | 2020-04-29 00:34 | NUR ---
NURSE NOTES: Noted hematuria in cutler catheter. Pt denies having pain. Cutler catheter is patent and intact. Will notify MD in the morning.
--- NOTE | 2020-04-29 03:15 | Consultation ---
DATE OF CONSULTATION: 04/28/2020 CARDIOLOGY CONSULTATION CONSULTING PHYSICIAN: Federico Brito MD REFERRING PHYSICIAN: Juancarlos Sims MD REASON FOR CONSULTATION: Hypertensive emergency. HISTORY OF PRESENT ILLNESS: This 64-year-old female has a history of hypertension and generalized atherosclerotic disease. She presented to the emergency room with abdominal pain. She was noted to have systolic blood pressure readings well above 210 and diastolic readings above 120. She was noted to have 1400 mL of retained urine and a catheter was placed with some relief. Her blood pressure parameters however remain significantly elevated. In the emergency room, she underwent a CT angiogram of the chest, abdomen, and pelvis that was negative for any aortic dissection or acute pathology. She was noted to have the possibility of colitis. The case was discussed with the emergency room physician and intravenous antihypertensives were initiated. PAST MEDICAL HISTORY: 1. Hypertension. 2. Insulin-requiring diabetes mellitus. 3. Hyperlipidemia. 4. Right carotid stenosis. 5. Neurogenic bladder. 6. History of premature atrial contractions. 7. Diabetic neuropathy. 8. Chronic kidney disease. 9. Microcytic anemia. ALLERGIES TO MEDICATIONS: None. SOCIAL HISTORY: She uses marijuana. She denies smoking, alcohol, or substance abuse. FAMILY HISTORY: Noncontributory. REVIEW OF SYSTEMS: She suffered a myocardial infarction several months ago. She subsequently had an outpatient stress test that was negative for flow-limiting coronary disease. Her echocardiogram has revealed normal ejection fraction, mild concentric hypertrophy and no valvular disease. She is on anti-lipid drugs with statins and has an LDL less than 100. She has a carotid duplex study that revealed moderate to severe right-sided stenosis. Followup evaluation is planned. She has a history of microcytic anemia and has been recommended for colonoscopy. There is no history of seizure or stroke. She is on insulin for her diabetes. There is no history of asthma or abnormal blood clotting. PHYSICAL EXAMINATION: VITAL SIGNS: Blood pressure 201/113, heart rate 99, respiratory rate 16, afebrile. HEENT: Conjunctivae pink. Fundi benign. Oropharynx clear. NECK: Supple. Jugular venous pressure normal. LUNGS: Clear. CARDIAC: Regular rhythm and rate. Normal S1, S2 with a fourth heart sound. ABDOMEN: Soft. Mildly tender in the suprapubic region with no guarding or rebound. Slightly distended. EXTREMITIES: No clubbing or cyanosis. No edema. NEUROLOGIC: Nonfocal. EKG reveals sinus tachycardia. Nonspecific ST changes. Voltage for left ventricular hypertrophy. LABORATORY DATA: White count 9.6, hemoglobin 15. Potassium 3.1, BUN 12, creatinine 1.2, glucose 360. Troponin 0.014. IMPRESSION: 1. Hypertensive urgency. 2. Hypokalemia. 3. History of hypertensive heart disease. 4. History of right carotid stenosis. 5. 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 6. Insulin-requiring diabetes mellitus. 7. Hyperlipidemia. 8. Neurogenic bladder. 9. Urinary retention. 10. Abdominal pain, possibly related to above. Other considerations include colitis. PLAN: 1. Cardiac monitoring. 2. Stepwise titration of antihypertensives. 3. Salazar catheter. 4. Potassium replacement. 5. Check magnesium. 6. Check lactic acid level. 7. Consideration for MRA of the neck to follow. 8. Stool occult blood test. 9. Lactic acid level. 10. Reassess for antimicrobials. 11. Consider for urologic evaluation. Federico Brito M.D. DR: VARGAS JOB#: [id number] CC:
[2020-04-29 04:00] VITALS: BP 123/78
[2020-04-29 04:22] LABS: BASOPHILS % (AUTO) 1.6 % (0.0-2.0); EOSINOPHILS % (AUTO) 0.1 % (0.0-3.0); HEMATOCRIT 44.6 % (37.0-47.0); HEMOGLOBIN 15.2 G/DL (12.0-16.0); MEAN CORPUSCULAR VOLUME 73 FL (80-99); MONOCYTES % (AUTO) 8.7 % (1.0-10.0); NEUTROPHILS % (AUTO) 76.7 % (45.0-75.0); PLATELET COUNT 312 K/UL (150-450); RED BLOOD COUNT 6.07 M/UL (4.20-5.40); RED CELL DISTRIBUTION WIDTH 12.8 % (11.6-14.8); WHITE BLOOD COUNT 15.4 K/UL (4.8-10.8)
[2020-04-29 04:34] LABS: ALBUMIN 3.8 G/DL (3.4-5.0); BILIRUBIN,TOTAL 0.5 MG/DL (0.2-1.0); CALCIUM 9.1 MG/DL (8.5-10.1); CREATININE 1.6 MG/DL (0.55-1.30); POTASSIUM 3.7 MMOL/L (3.5-5.1)
[2020-04-29] MEDS: NovoLOG Insulin Flexpen SUBQ SCH ×4 (06:11→21:25)
--- NOTE | 2020-04-29 06:20 | NUR ---
NURSE NOTES: Left a message to regarding noted hematuria, and abnormal am labs. Pt is calm in bed, denies pain. Will continue to monitor pt.
--- NOTE | 2020-04-29 06:59 | NUR ---
NURSE HAND-OFF REPORT: Important Events on Shift: New admit, hypertension, abd. discomfort, hematuria Patient Status: stable Diet: CCHO ALTHEA Pending Orders: N Pending Results/Labs:N Pending MD notification:N Latest Vital Signs: Temperature 98.4 , Pulse 100 , B/P 119 /75 , Respiratory Rate 20 , O2 SAT 97 , Room Air, O2 Flow Rate . Vital Sign Comment: stable EKG Rhythm: Sinus Tachycardia Rhythm change?: N MD Notified?: - MD Response: Latest Dumont Fall Score: 15 Fall Risk: Low Risk Safety Measures: Call light Within Reach, Bed Alarm Zone 1, Side Rails Side Rails x2, Bed position Low and Locked. Fall Precautions: Yellow Socks Yellow Gown Door Sign Patient Fall Education Report given to JESSICA Rodriguez.
[2020-04-29 08:30] VITALS: BP 122/70
[2020-04-29 12:13] VITALS: BP 124/73
[2020-04-29 15:29] VITALS: BP 124/73
--- NOTE | 2020-04-29 15:39 | NUR ---
CASE MANAGEMENT:REVIEW 64 YR OLD FEMALE PRESENTED TO ER CC; ABDOMINAL PAIN SI: HYPERTENSIVE EMERGENCY 98.2 101 32 231/114 98% ON RA NA-130 BUN+22 CR+1.6 GLUCOSE+231 IS: IV LABETALOL IV ZOFRAN CTA CHEST/ABD/PELVIS CXR : TO SDU PLAN: DOWNGRADE TO SDU
--- NOTE | 2020-04-29 16:23 | Cardiology Report ---
APPROVED REPORT EKG Measurement Heart [id number] <Conclusion> Sinus tachycardia Minimal voltage criteria for LVH, may be normal variant Borderline ECG
--- NOTE | 2020-04-29 18:15 | History and Physical Report ---
DATE OF ADMISSION: 04/28/2020 CHIEF COMPLAINT: Hypertensive emergency. HISTORY OF PRESENT ILLNESS: The patient is a 64-year-old female. She has history of hypertensive heart disease, diabetes, hyperlipidemia presented with complaints of shortness of breath and chest tightness. Chest pain is left-sided, pressure like, and is intermittent. According to the patient, she has been doing well except for the chest pain but she has noted that her home blood pressure has been elevated. She admits to drinking several cups of coffee a day. She is on no type of salt restriction. On evaluation in the emergency room, a CT angiogram of the chest was negative for dissection or PE. Her antihypertensive regimen was adjusted and she is now admitted for further evaluation and care. PAST MEDICAL HISTORY: As above. PAST SURGICAL HISTORY: None. CURRENT MEDICATIONS: Reconciled and reviewed. ALLERGIES: None. FAMILY HISTORY: None. SOCIAL HISTORY: Negative for tobacco, ethanol. The patient uses marijuana occasionally. REVIEW OF SYSTEMS: GENERAL: No fever or chills. HEENT: No headaches or visual changes. CARDIOPULMONARY: Positive chest pain shortness of breath. GASTROINTESTINAL: No nausea or vomiting. GENITOURINARY: No urgency or frequency. MUSCULOSKELETAL: No joint pain or swelling. NEUROLOGIC: No evidence of seizures. PHYSICAL EXAMINATION: VITAL SIGNS: Blood pressure 200/100, pulse of 80, respirations 20. GENERAL: The patient is well-developed female, in no apparent distress. HEART: Regular rate and rhythm. LUNGS: Clear. ABDOMEN: Soft, nontender, nondistended. EXTREMITIES: No clubbing, cyanosis, or edema. LABORATORY AND DIAGNOSTIC DATA: White count 9, hemoglobin 15, hematocrit 45, platelets 280. Sodium , BUN 22, creatinine 1.6. Urine was clear. CT scan of the chest showed mild diffuse colonic wall thickening. ASSESSMENT: This is a pleasant female with history of hypertension and diabetes admitted with complaints of shortness of breath secondary to uncontrolled hypertension. PLAN: 1. Admit to monitored bed. 2. Serial enzymes. 3. Titrate antihypertensive regimen. 4. Monitor serial abdominal exams. 5. Continue DVT and stress ulcer prophylaxis. 6. Monitor Accu-Cheks. 7. Check thyroid function tests. Juancarlos Sims M.D. DR: Rodriguez JOB#: [id number] CC:
--- NOTE | 2020-04-29 19:10 | NUR ---
NURSE HAND-OFF REPORT: Important Events on Shift:Pt transferred from SDU. Patient Status: Stable Diet: CCHO, Low salt diet Pending Orders: Starts levemir today Latest Vital Signs: Temperature 96.9 , Pulse 87 , B/P 116 /97 , Respiratory Rate 18 , O2 SAT 94 , Room Air, O2 Flow Rate . Vital Sign Comment: VSS; BP within normal limits EKG Rhythm: Sinus Rhythm Rhythm change?: N MD Notified?: - MD Response: Latest Dumont Fall Score: 15 Fall Risk: Low Risk Safety Measures: Call light Within Reach, Bed Alarm Zone 1, Side Rails Side Rails x2, Bed position Low and Locked. Fall Precautions: Yellow Socks Yellow Gown Door Sign Patient Fall Education Report given to JESSICA Strickland.
--- NOTE | 2020-04-29 19:20 | NUR ---
NURSE NOTES: Received pt from Galo LOPEZ. Patient is lying in bed sleeping. Alert oriented x 4. No acute distress noted at this time. No pain reported., on RA, Denies pain but noted discomfort in the abdomen. Pt is able to ambulate with a steady gate . IV in right AC 20 G is running NS @ 125ml/hr as ordered; patent and intact. No erythema or bleeding noted. Salazar in place and draining well to gravity. Patent is on fall precautions. Bed is locked and in lowest position. Call light with in reach. Will continue with plan of care.
--- NOTE | 2020-04-29 19:20 | NUR ---
NURSE NOTES: Received pt from Galo LOPEZ. Patient is lying in bed sleeping. Alert oriented x 4. No acute distress noted at this time. No pain reported., on RA, Denies pain but noted discomfort in the abdomen. Pt is able to move all extremities 5/5 on all bilateral upper and lower extremities. Symmetrical facial expression is noted. Vitals are BP= 144/101, HR= 111, O2 99%. Peripheral IV in right AC 20 G is patent and intact. Will continue to closely monitor the patient. Will continue with plan of care. Addendum: 04/30/20 at 0206 by Fiorella Guzman RN Wrong information.
[2020-04-29 20:00] VITALS: BP 123/71
[2020-04-29] MEDS ORDERED: NIFEDIPINE ER60 M2 ORAL (20:03)
[2020-04-29] MEDS ORDERED: HUMALOG100 UNIT/3 SUBQ (20:03)
[2020-04-29] MEDS ORDERED: GABAPENTIN100 MG ORAL (20:03)
[2020-04-29] MEDS: Tamsulosin 0.4mg cap ORAL SCH (21:23)
[2020-04-29] MEDS: Atorvastatin 20mg tab ORAL SCH (21:24)
--- NOTE | 2020-04-29 21:30 | Consultation ---
DATE OF CONSULTATION: 04/29/2020 CONSULTING PHYSICIAN: Jone Page MD. REFERRING PHYSICIAN: Federico Brito MD. REASON FOR CONSULTATION: Evaluation of neurogenic bladder. HISTORY OF PRESENT ILLNESS: This is a 64-year-old female. She came to the hospital because of abdominal pain and abdominal distention. She had issues with constipation, was noted to be urinary retention and a Salazar catheter was placed with significant urinary retention noted. Urology evaluation has been requested. The patient denies previous difficulty voiding. She denies previous bladder surgery. PAST MEDICAL HISTORY: Significant for diabetes, hypertension, hyperlipidemia. PAST SURGICAL HISTORY: Unknown. CURRENT MEDICATIONS: Here in the hospital, the patient is on insulin, Levemir, Lipitor, Lotensin, Norvasc, , and Zofran. ALLERGIES: Avocado . No known drug allergies. SOCIAL HISTORY: The patient is a nonsmoker. FAMILY HISTORY: Noncontributory. REVIEW OF SYSTEMS: As above. PHYSICAL EXAMINATION: GENERAL: A well-developed and well-nourished female, in no acute distress. VITAL SIGNS: Temperature is 98.1, blood pressure 124/73, pulse 93, respirations 20. HEENT: Normocephalic. NECK: Supple. ABDOMEN: Soft. BACK: No CVA tenderness. GENITOURINARY: Salazar catheter in place. Urine is grossly yellow, now yellow brooke. The patient did state that she had some hematuria after the Salazar was placed. LABORATORY DATA: UA on admission showed 2+ protein. White count is 15.4, hemoglobin 15.2, platelets 312,000. BUN 22, creatinine 1.6. Creatinine was 1.8 at the admission. DIAGNOSTIC IMAGING STUDIES: The patient had a CT scan of the chest, abdomen, and pelvis. The kidneys were reportedly normal. IMPRESSION: 1. Urinary retention. 2. Probable neurogenic bladder. 3. Proteinuria. 4. Mild acute kidney injury. 5. Hematuria history. PLAN AND DISCUSSION: Again, as noted above the patient was in urinary retention when she came into the hospital. Salazar catheter is in place. The retention is most likely secondary to a neurogenic bladder and possible urethral stenosis. At this time, I will add Flomax 0.4 mg nightly and hopefully she can have a voiding trial in a few days. At some point, she will need to have cystoscopy electively to look at the bladder. She did have some hematuria after Salazar placement, which is likely from Salazar trauma, but there is no active bleeding at this point. She does have some mild elevation of her creatinine and the renal function will be monitored. I will follow the patient. Any other recommendations will be forthcoming. Thank you, Dr. Brito, for asking me to see this patient in consultation. Jone Page M.D. DR: DMITRIY JOB#: [id number] CC:
[2020-04-29] MEDS: Levemir Flexpen SUBQ SCH (21:46)
--- NOTE | 2020-04-29 23:19 | Cardiology Progress Note ---
Subjective DATE OF SERVICE: Apr 29, 2020 BP parameters improving. No CP or SOB Still with abdominal pain, but much better. Objective Last 24 Hour Vital Signs Date Time Temp Pulse Resp B/P (MAP) Pulse Ox O2 Delivery O2 Flow Rate FiO2 04/29/20 20:00 99.9 102 18 123/71 (88) 96 93 04/29/20 15:58 Room Air 04/29/20 15:29 95 04/29/20 15:29 98.1 93 20 124/73 (90) 99 93 04/29/20 12:38 124/73 04/29/20 12:13 98.1 93 20 124/73 (90) 99 93 04/29/20 11:42 97 04/29/20 11:29 Room Air 04/29/20 08:51 122/70 04/29/20 08:51 103 122/70 04/29/20 08:30 97.7 103 20 122/70 (87) 99 103 04/29/20 08:27 Room Air 04/29/20 07:46 94 04/29/20 06:00 119/75 04/29/20 04:00 100 04/29/20 04:00 Room Air 04/29/20 04:00 98.4 97 20 123/78 (93) 97 100 04/29/20 00:08 150/91 04/29/20 00:00 Room Air 04/29/20 00:00 98 04/29/20 00:00 98.5 100 20 148/76 (100) 97 100 ROS: No change from my evaluation of 04/28/20. HEENT: normal ENT inspection RHYTHM: NSR, PACs LUNGS: lungs clear bilaterally CARDIAC: normal rate, regular rhythm, normal S1 and S2, gallop/S4 ABDOMEN: normal bowel sounds, non tender, soft, no organomegaly EXTREMITIES: normal range of motion, No edema Laboratory Tests Test 04/29/20 02:50 04/29/20 02:55 04/29/20 05:48 04/29/20 11:37 Thyroid Stimulating Hormone (TSH) 1.014 uiU/mL (0.358-3.740) White Blood Count 15.4 K/UL (4.8-10.8) #H Red Blood Count 6.07 M/UL (4.20-5.40) H Hemoglobin 15.2 G/DL (12.0-16.0) Hematocrit 44.6 % (37.0-47.0) Mean Corpuscular Volume 73 FL (80-99) L Mean Corpuscular Hemoglobin 25.1 PG (27.0-31.0) L Mean Corpuscular Hemoglobin Concent 34.1 G/DL (32.0-36.0) Red Cell Distribution Width 12.8 % (11.6-14.8) Platelet Count 312 K/UL (150-450) Mean Platelet Volume 7.2 FL (6.5-10.1) Neutrophils (%) (Auto) 76.7 % (45.0-75.0) H Lymphocytes (%) (Auto) 13.0 % (20.0-45.0) L Monocytes (%) (Auto) 8.7 % (1.0-10.0) Eosinophils (%) (Auto) 0.1 % (0.0-3.0) Basophils (%) (Auto) 1.6 % (0.0-2.0) Sodium Level 130 MMOL/L (136-145) #L Potassium Level 3.7 MMOL/L (3.5-5.1) Chloride Level 95 MMOL/L (98-107) L Carbon Dioxide Level 25 MMOL/L (21-32) Anion Gap 10 mmol/L (5-15) Blood Urea Nitrogen 22 mg/dL (7-18) H Creatinine 1.6 MG/DL (0.55-1.30) H Estimat Glomerular Filtration Rate 39.3 mL/min (>60) Glucose Level 231 MG/DL (74-106) H Lactic Acid Level 1.70 mmol/L (0.4-2.0) Calcium Level 9.1 MG/DL (8.5-10.1) Magnesium Level 1.9 MG/DL (1.8-2.4) Total Bilirubin 0.5 MG/DL (0.2-1.0) Aspartate Amino Transf (AST/SGOT) 16 U/L (15-37) Alanine Aminotransferase (ALT/SGPT) 16 U/L (12-78) Alkaline Phosphatase 112 U/L (46-116) Troponin I 0.029 ng/mL (0.000-0.056) Total Protein 7.7 G/DL (6.4-8.2) Albumin 3.8 G/DL (3.4-5.0) Globulin 3.9 g/dL Albumin/Globulin Ratio 1.0 (1.0-2.7) POC Whole Blood Glucose 219 MG/DL (74-106) H 217 MG/DL (74-106) H Test 04/29/20 16:37 POC Whole Blood Glucose 194 MG/DL (74-106) H Microbiology Date/Time Source Procedure Growth Status 04/28/20 16:40 Rectum Received 04/28/20 11:35 Nasopharynx SARS-CoV-2 RdRp Gene Assay - Final Complete Assessment/Plan Assessment/Plan Hypertensive urgency Coronary atherosclerosis IRDM with hyperglycemia Urinary retention/Neurogenic bladder Hx of right carotid stenosis Hyperlipidemia Acute renal insuff - likely due to contrast load Leukocytosis - ?colitis Titrate antiHTN meds Titrate insulin Voiding trial to follow Antiplatelet and statin rx Consider MRA neck Consider antimicrobials if WBC remains elevated Cardiac monitoring Federico Brito MD Apr 29, 2020 23:19
[2020-04-30] VITALS (7 sets, daily range): BP systolic 116–158; BP diastolic 70–97
[2020-04-30] MEDS: HydrALAZINE 50mg tab ORAL SCH ×4 (06:08→18:14)
[2020-04-30] MEDS: NovoLOG Insulin Flexpen SUBQ SCH ×4 (06:09→21:03)
--- NOTE | 2020-04-30 07:06 | NUR ---
NURSE HAND-OFF REPORT: Important Events on Shift: Patient started her Levemir. Indorsed OB stool collection to day shift04/30. Patient Status: Stable Diet: CCHO/ low Na Pending Orders: Pending Results/Labs: Pending MD notification: Latest Vital Signs: Temperature 97.7 , Pulse 88 , B/P 129 /69 , Respiratory Rate 14 , O2 SAT 97 , Room Air, O2 Flow Rate . Vital Sign Comment: EKG Rhythm: Sinus Rhythm Rhythm change?: N MD Notified?: - MD Response: Latest Dumont Fall Score: 15 Fall Risk: Low Risk Safety Measures: Call light Within Reach, Bed Alarm Zone 1, Side Rails Side Rails x2, Bed position Low and Locked. Fall Precautions: Yellow Socks Yellow Gown Door Sign Patient Fall Education Report given to Zee LOPEZ.
--- NOTE | 2020-04-30 07:07 | NUR ---
NURSE NOTES: Received patient up in bed awake. No SOB or acute distress. IV line intact. Bed locked in low position. Call light within reach. Will continue plan of care. No complaints of abdominal pain. For OB stool collection, patient instructed, specimen cut at the bedside.
[2020-04-30 07:24] LABS: BASOPHILS % (AUTO) 0.7 % (0.0-2.0); EOSINOPHILS % (AUTO) 1.5 % (0.0-3.0); HEMATOCRIT 37.2 % (37.0-47.0); HEMOGLOBIN 12.4 G/DL (12.0-16.0); LYMPHOCYTES % (AUTO) 28.5 % (20.0-45.0); MEAN CORPUSCULAR VOLUME 75 FL (80-99); MONOCYTES % (AUTO) 7.8 % (1.0-10.0); NEUTROPHILS % (AUTO) 61.5 % (45.0-75.0); PLATELET COUNT 246 K/UL (150-450); RED BLOOD COUNT 4.95 M/UL (4.20-5.40); RED CELL DISTRIBUTION WIDTH 12.9 % (11.6-14.8); WHITE BLOOD COUNT 9.9 K/UL (4.8-10.8)
[2020-04-30 07:46] LABS: CALCIUM 8.4 MG/DL (8.5-10.1); CREATININE 1.4 MG/DL (0.55-1.30); POTASSIUM 4.3 MMOL/L (3.5-5.1)
--- NOTE | 2020-04-30 10:03 | Urology Progress Note ---
Assessment/Plan Assessment/Plan: 1. Urinary retention. 2. Probable neurogenic bladder. 3. Proteinuria. 4. Mild acute kidney injury. 5. Hematuria history. cutler indwelling hand irrigated and do PRN started flomax voiding trial 1-2 days cysto later electively monitor renal fxn stool softeners PRN Subjective Allergies: Coded Allergies: Sp[place] (Verified Allergy, Unknown, 04/29/20) Uncoded Allergies: AVOCADOS (Allergy, Unknown, 02/27/20) Subjective all noted, feels fair Objective Last 24 Hour Vital Signs Date Time Temp Pulse Resp B/P (MAP) Pulse Ox O2 Delivery O2 Flow Rate FiO2 04/30/20 09:34 96 116/71 04/30/20 09:33 116/71 04/30/20 08:00 98.1 96 18 116/71 (86) 98 96 04/30/20 06:08 129/69 04/30/20 04:00 88 04/30/20 04:00 97.7 73 14 128/71 (90) 97 73 04/30/20 00:16 96.9 87 18 116/97 (103) 94 87 04/30/20 00:00 92 04/30/20 00:00 116/97 04/30/20 00:00 96.9 87 18 116/97 (103) 94 87 04/29/20 20:00 99.9 102 18 123/71 (88) 96 93 04/29/20 20:00 Room Air 04/29/20 20:00 98 04/29/20 15:58 Room Air 04/29/20 15:29 95 04/29/20 15:29 98.1 93 20 124/73 (90) 99 93 04/29/20 12:38 124/73 04/29/20 12:13 98.1 93 20 124/73 (90) 99 93 04/29/20 11:42 97 04/29/20 11:29 Room Air Intake and Output 04/29/20 04/30/20 19:00 07:00 Output Total 100 ml 200 ml Balance -100 ml -200 ml Output Urine Total 100 ml 200 ml Microbiology Date/Time Source Procedure Growth Status 04/28/20 16:40 Rectum - Final NO CARBAPENEM-RESISTANT ENTEROBACTERI... Complete 04/28/20 16:40 Nasal Nares MRSA Culture - Final NO METHICILLIN RESISTANT STAPH AUREUS... Complete Current Medications Medications (Trade) Dose Ordered Sig/Xi Route PRN Reason Start Time Stop Time Status Last Admin Dose Admin Amlodipine Besylate (Norvasc) 10 mg DAILY ORAL 04/29/20 09:00 05/29/20 08:59 04/30/20 09:34 Atorvastatin Calcium (Lipitor) 20 mg BEDTIME ORAL 04/29/20 21:00 07/28/20 20:59 04/29/20 21:24 Benazepril HCl (Lotensin) 40 mg DAILY ORAL 04/29/20 09:00 05/29/20 08:59 04/30/20 09:33 Dextrose (Dextrose 50%) 25 ml Q30M PRN IV Hypoglycemia 04/29/20 16:45 07/28/20 16:44 Dextrose (Dextrose 50%) 50 ml Q30M PRN IV Hypoglycemia 04/29/20 16:45 07/28/20 16:44 Hydralazine HCl (Apresoline) 50 mg Q6HR ORAL 04/29/20 00:00 07/28/20 00:00 04/30/20 06:08 Insulin Aspart (NovoLOG) BEFORE MEALS AND HS SUBQ 04/29/20 21:00 07/28/20 20:59 04/30/20 06:09 Insulin Detemir (Levemir) 24 units BEDTIME SUBQ 04/29/20 21:00 07/28/20 20:59 04/29/20 21:46 Iohexol (Omnipaque 350 100ml) 100 ml NOW PRN INJ Radiology Procedure 04/28/20 10:15 04/30/20 10:14 Iohexol (Omnipaque 350 100ml) 100 ml NOW PRN INJ Radiology Procedure 04/28/20 10:15 04/30/20 10:14 Ondansetron HCl (Zofran) 4 mg Q4H PRN IVP Nausea & Vomiting 04/28/20 23:45 05/28/20 23:44 Sodium Chloride 1,000 ml @ 125 mls/hr Q8H IV 04/29/20 12:04 05/29/20 12:03 04/30/20 06:08 Tamsulosin HCl (Flomax) 0.4 mg BEDTIME ORAL 04/29/20 21:00 05/29/20 20:59 04/29/20 21:23 Zolpidem Tartrate (Ambien) 5 mg HSPRN PRN ORAL Insomnia 04/28/20 23:45 05/05/20 23:44 Laboratory Tests 04/29/20 11:37: POC Whole Blood Glucose 217H 04/29/20 16:37: POC Whole Blood Glucose 194H 04/30/20 06:35: White Blood Count 9.9, Red Blood Count 4.95, Hemoglobin 12.4, Hematocrit 37.2, Mean Corpuscular Volume 75L, Mean Corpuscular Hemoglobin 25.1L, Mean Corpuscular Hemoglobin Concent 33.4, Red Cell Distribution Width 12.9, Platelet Count 246, Mean Platelet Volume 6.9, Neutrophils (%) (Auto) 61.5, Lymphocytes (%) (Auto) 28.5, Monocytes (%) (Auto) 7.8, Eosinophils (%) (Auto) 1.5, Basophils (%) (Auto) 0.7, Sodium Level 138, Potassium Level 4.3, Chloride Level 103, Carbon Dioxide Level 26, Anion Gap 9, Blood Urea Nitrogen 32H, Creatinine 1.4H, Estimat Glomerular Filtration Rate 45.8, Glucose Level 151H, Calcium Level 8.4L, Magnesium Level 2.1, Pro-B-Type Natriuretic Peptide 880H Height (Feet): 5 Height (Inches): 2.00 Weight (Pounds): 170 Objective exam stable cutler indwelling urine yellow/brooke with occasional debris Jone Page MD Apr 30, 2020 10:03
--- NOTE | 2020-04-30 11:28 | General Progress Note ---
Subjective ROS Limited/Unobtainable: No HEENT: Reports: no symptoms Cardiovascular: Reports: no symptoms Respiratory: Reports: no symptoms Gastrointestinal/Abdominal: Reports: no symptoms Genitourinary: Reports: no symptoms Endocrine: Reports: no symptoms Hematologic/Lymphatic: Reports: no symptoms Allergies: Coded Allergies: [place] (Verified Allergy, Unknown, 04/29/20) Uncoded Allergies: AVOCADOS (Allergy, Unknown, 02/27/20) All Systems: reviewed and negative except above Subjective no complaints. feels "fine/." no chest pain or sob. able to void. BP better controlled. no dizziness. Wbc nml now. Objective Last 24 Hour Vital Signs Date Time Temp Pulse Resp B/P (MAP) Pulse Ox O2 Delivery O2 Flow Rate FiO2 04/30/20 09:34 96 116/71 04/30/20 09:33 116/71 04/30/20 09:00 Room Air 04/30/20 08:00 96 04/30/20 08:00 98.1 96 18 116/71 (86) 98 96 04/30/20 06:08 129/69 04/30/20 04:00 88 04/30/20 04:00 97.7 73 14 128/71 (90) 97 73 04/30/20 00:16 96.9 87 18 116/97 (103) 94 87 04/30/20 00:00 92 04/30/20 00:00 116/97 04/30/20 00:00 96.9 87 18 116/97 (103) 94 87 04/29/20 20:00 99.9 102 18 123/71 (88) 96 93 04/29/20 20:00 Room Air 04/29/20 20:00 98 04/29/20 15:58 Room Air 04/29/20 15:29 95 04/29/20 15:29 98.1 93 20 124/73 (90) 99 93 04/29/20 12:38 124/73 04/29/20 12:13 98.1 93 20 124/73 (90) 99 93 04/29/20 11:42 97 04/29/20 11:29 Room Air Intake and Output 04/29/20 04/30/20 19:00 07:00 Output Total 100 ml 200 ml Balance -100 ml -200 ml Output Urine Total 100 ml 200 ml Laboratory Tests 04/29/20 11:37: POC Whole Blood Glucose 217H 04/29/20 16:37: POC Whole Blood Glucose 194H 04/30/20 06:35: White Blood Count 9.9, Red Blood Count 4.95, Hemoglobin 12.4, Hematocrit 37.2, Mean Corpuscular Volume 75L, Mean Corpuscular Hemoglobin 25.1L, Mean Corpuscular Hemoglobin Concent 33.4, Red Cell Distribution Width 12.9, Platelet Count 246, Mean Platelet Volume 6.9, Neutrophils (%) (Auto) 61.5, Lymphocytes (%) (Auto) 28.5, Monocytes (%) (Auto) 7.8, Eosinophils (%) (Auto) 1.5, Basophils (%) (Auto) 0.7, Sodium Level 138, Potassium Level 4.3, Chloride Level 103, Carbon Dioxide Level 26, Anion Gap 9, Blood Urea Nitrogen 32H, Creatinine 1.4H, Estimat Glomerular Filtration Rate 45.8, Glucose Level 151H, Calcium Level 8.4L, Magnesium Level 2.1, Pro-B-Type Natriuretic Peptide 880H Height (Feet): 5 Height (Inches): 2.00 Weight (Pounds): 170 General Appearance: WD/WN, no apparent distress, alert EENT: normal ENT inspection Neck: non-tender, normal alignment Cardiovascular: normal rate Respiratory/Chest: chest wall non-tender, lungs clear, normal breath sounds Abdomen: normal bowel sounds, non tender, soft, no organomegaly, no mass Edema: no edema noted Arm (L), no edema noted Arm (R) Neurologic: cross tie cutter II-XII grossly normal, alert, oriented x 3, responsive Assessment/Plan Problem List: (1) Hypertensive emergency ICD Codes: I10 - Essential (primary) hypertension SNOMED: 411432532 (2) Urinary retention ICD Codes: R33.9 - Retention of urine, unspecified SNOMED: 625477159 Status: stable Assessment/Plan: monitor bp mobilize flomax for urinary retention monitor BS- elevated. may need to increase diabetes rx dvt and stress ulcer prophylaxis dc per cards Juancarlos Sims MD Apr 30, 2020 11:28
[2020-04-30] MEDS ORDERED: Bisacodyl EC 5mg tab ORAL SCH (15:00)
--- NOTE | 2020-04-30 16:26 | Cardiology Progress Note ---
Subjective DATE OF SERVICE: Apr 30, 2020 BP parameters improving, although still suboptimal at times. No CP or SOB Now with minimal abdominal pain; she is c/o constipation. Status discussed with patient's son, by telephone per patient's request. Objective Last 24 Hour Vital Signs Date Time Temp Pulse Resp B/P (MAP) Pulse Ox O2 Delivery O2 Flow Rate FiO2 04/30/20 12:00 104 04/30/20 11:51 151/75 04/30/20 11:29 98.1 88 18 151/75 (100) 99 88 04/30/20 09:34 96 116/71 04/30/20 09:33 116/71 04/30/20 09:00 Room Air 04/30/20 08:00 96 04/30/20 08:00 98.1 96 18 116/71 (86) 98 96 04/30/20 06:08 129/69 04/30/20 04:00 88 04/30/20 04:00 97.7 73 14 128/71 (90) 97 73 04/30/20 00:16 96.9 87 18 116/97 (103) 94 87 04/30/20 00:00 92 04/30/20 00:00 116/97 04/30/20 00:00 96.9 87 18 116/97 (103) 94 87 04/29/20 20:00 99.9 102 18 123/71 (88) 96 93 04/29/20 20:00 Room Air 04/29/20 20:00 98 ROS: No change from my evaluation of 04/28/20. HEENT: normal ENT inspection RHYTHM: NSR, PACs LUNGS: lungs clear bilaterally CARDIAC: normal rate, regular rhythm, normal S1 and S2, gallop/S4 ABDOMEN: normal bowel sounds, non tender, soft, no organomegaly EXTREMITIES: normal range of motion, No edema Laboratory Tests Test 04/29/20 16:37 04/30/20 06:35 POC Whole Blood Glucose 194 MG/DL (74-106) H White Blood Count 9.9 K/UL (4.8-10.8) Red Blood Count 4.95 M/UL (4.20-5.40) Hemoglobin 12.4 G/DL (12.0-16.0) Hematocrit 37.2 % (37.0-47.0) Mean Corpuscular Volume 75 FL (80-99) L Mean Corpuscular Hemoglobin 25.1 PG (27.0-31.0) L Mean Corpuscular Hemoglobin Concent 33.4 G/DL (32.0-36.0) Red Cell Distribution Width 12.9 % (11.6-14.8) Platelet Count 246 K/UL (150-450) Mean Platelet Volume 6.9 FL (6.5-10.1) Neutrophils (%) (Auto) 61.5 % (45.0-75.0) Lymphocytes (%) (Auto) 28.5 % (20.0-45.0) Monocytes (%) (Auto) 7.8 % (1.0-10.0) Eosinophils (%) (Auto) 1.5 % (0.0-3.0) Basophils (%) (Auto) 0.7 % (0.0-2.0) Sodium Level 138 MMOL/L (136-145) Potassium Level 4.3 MMOL/L (3.5-5.1) Chloride Level 103 MMOL/L (98-107) Carbon Dioxide Level 26 MMOL/L (21-32) Anion Gap 9 mmol/L (5-15) Blood Urea Nitrogen 32 mg/dL (7-18) H Creatinine 1.4 MG/DL (0.55-1.30) H Estimat Glomerular Filtration Rate 45.8 mL/min (>60) Glucose Level 151 MG/DL (74-106) H Calcium Level 8.4 MG/DL (8.5-10.1) L Magnesium Level 2.1 MG/DL (1.8-2.4) Pro-B-Type Natriuretic Peptide 880 pg/mL (0-125) H Microbiology Date/Time Source Procedure Growth Status 04/28/20 16:40 Rectum - Final NO CARBAPENEM-RESISTANT ENTEROBACTERI... Complete 04/28/20 16:40 Rectum VRE Culture - Final NO VANCOMYCIN RESISTANT ENTEROCOCCUS ... Complete 04/28/20 16:40 Nasal Nares MRSA Culture - Final NO METHICILLIN RESISTANT STAPH AUREUS... Complete 04/28/20 11:35 Nasopharynx SARS-CoV-2 RdRp Gene Assay - Final Complete Assessment/Plan Assessment/Plan Hypertensive urgency Coronary atherosclerosis IRDM with hyperglycemia Urinary retention/Neurogenic bladder Hx of right carotid stenosis Hyperlipidemia Acute renal insuff - likely due to contrast load, improving with IVF Leukocytosis - resolved Constipation Titrate antiHTN meds Titrate insulin Bowel regimen Voiding trial to follow Antiplatelet and statin rx Consider MRA neck when renal function stabilizes. IVF hydration DC cardiac monitoring Federico Brito MD Apr 30, 2020 16:26
--- NOTE | 2020-04-30 16:51 | NUR ---
NURSE NOTES: Patient transferred to [facility] [place], report given to Enio LOPEZ. No new skin issues noted. Belongings accounted for.
--- NOTE | 2020-04-30 16:52 | NUR ---
NURSE NOTES: PAtient safely transferred from 2E to 3E. Patient is awake and alert, no signs of distress noted or reports of pain. Belongings list verified and signed. IV on the right hand is patent and asymptomatic running IVF as ordered. Salazar catheter noted. Bed is low and locked, side rails up x2, call light is within reach. Patient oriented to room.
--- NOTE | 2020-04-30 19:20 | NUR ---
NURSE HAND-OFF: Important Events on Shift:[transfer to 3E] Patient Status: stable Diet: regular Pending Orders: Pending Results/Labs: Pending MD notification: Latest Vital Signs: Temperature 99.3 , Pulse 91 , B/P 155 /81 , Respiratory Rate 18 , O2 SAT 99 , Room Air, O2 Flow Rate . Vital Sign Comment: Latest Dumont Fall Score: 15 Fall Risk: Low Risk Safety Measures: Call light Within Reach, Bed Alarm Zone 1, Side Rails Side Rails x2, Bed position Low and Locked. Fall Precautions: Yellow Socks Yellow Gown Door Sign Patient Fall Education Report given to Oksana LOPEZ.
--- NOTE | 2020-04-30 20:13 | NUR ---
NURSES NOTE: Pt in bed, A/OX4, denies pain or discomfort at this time. Breathing pattern is even and unlabored on RA. No outward s/s of distress noted. R AC IV in place, infusing IVF without incident. Skin is clear and intact. Ambulatory without assist. All due medications will be administered. Bed at lowest level. Call light within reach. Pt will continue to be monitored.
[2020-04-30] MEDS: Atorvastatin 20mg tab ORAL SCH (20:56)
[2020-04-30] MEDS: Tamsulosin 0.4mg cap ORAL SCH (20:56)
[2020-04-30] MEDS: Levemir Flexpen SUBQ SCH (21:02)
[2020-05-01] MEDS: HydrALAZINE 50mg tab ORAL SCH ×5 (01:10→23:33)
--- NOTE | 2020-05-01 01:23 | NUR ---
NURSES NOTE: Pt stated R AC IV was causing discomfort and pain. IV d/c. RN and charge nurse attempted to insert a 22g on the L hand/arm; however, pt refused to try another attempt by another RN after the second attempt was unsuccessful. Pt stated she was refusing IV access.
[2020-05-01 04:00] VITALS: BP 143/62
[2020-05-01] MEDS: NovoLOG Insulin Flexpen SUBQ SCH ×4 (06:13→21:52)
--- NOTE | 2020-05-01 07:51 | NUR ---
NURSE HAND-OFF: Important Events on Shift:[NONE] Patient Status: [STABLE] Diet: [CCHO MEDIUM LOW SODIUM] Pending Orders: [NONE] Pending Results/Labs:[NONE] Pending MD notification:[NONE] Latest Vital Signs: Temperature 98.3 , Pulse 104 , B/P 143 /62 , Respiratory Rate 18 , O2 SAT 98 , Room Air, O2 Flow Rate . Vital Sign Comment: [WNL] Latest Dumont Fall Score: 35 Fall Risk: Medium Risk Safety Measures: Call light Within Reach, Bed Alarm Zone 1, Side Rails Side Rails x2, Bed position Low and Locked. Fall Precautions: Yellow Socks Yellow Gown Door Sign Patient Fall Education Report given to [JESSICA GRAY].
--- NOTE | 2020-05-01 07:51 | NUR ---
NURSES NOTE: IV replaced 22 gauge L wrist. Patent, running IVF without incident.
--- NOTE | 2020-05-01 07:56 | NUR ---
NURSE NOTES: Patient is in bed asleep. Stable. No s/s distress noted. Patient appears comfortable. Patient is in bed in locked and lowest position with call light within reach. All safety measures provided. Will continue to monitor.
[2020-05-01 08:00] VITALS: BP 148/79
[2020-05-01] MEDS ORDERED: NS Irrig 4000ml IRRIG ONE (08:50)
[2020-05-01] MEDS ORDERED: Sterile Water Irrig 2000ml IRRIG ONE (08:50)
--- NOTE | 2020-05-01 10:27 | Urology Progress Note ---
Assessment/Plan Status: stable Assessment/Plan: 1. Urinary retention. 2. Probable neurogenic bladder. 3. Proteinuria. 4. Mild acute kidney injury. 5. Hematuria history. cutler indwelling hand irrigated and do PRN started flomax plan voiding trial tomorrow cysto later electively monitor renal fxn stool softeners PRN Subjective Allergies: Coded Allergies: [place] (Verified Allergy, Unknown, 04/29/20) Uncoded Allergies: AVOCADOS (Allergy, Unknown, 02/27/20) Subjective all noted, feels fair Objective Last 24 Hour Vital Signs Date Time Temp Pulse Resp B/P (MAP) Pulse Ox O2 Delivery O2 Flow Rate FiO2 05/01/20 09:00 Room Air 05/01/20 08:39 148/79 05/01/20 08:39 92 148/79 05/01/20 08:00 98.4 92 18 148/79 (102) 98 05/01/20 06:09 143/62 05/01/20 04:00 98.3 104 18 143/62 (89) 98 104 05/01/20 01:10 141/65 04/30/20 21:00 Room Air 04/30/20 20:00 97.7 88 17 158/83 (108) 98 88 04/30/20 18:14 155/81 04/30/20 16:00 99.3 91 18 136/70 (92) 99 91 04/30/20 12:00 104 04/30/20 11:51 151/75 04/30/20 11:29 98.1 88 18 151/75 (100) 99 88 Intake and Output 04/30/20 05/01/20 19:00 07:00 Intake Total 490 ml 720 ml Output Total 600 ml 2350 ml Balance -110 ml -1630 ml Intake Oral 490 ml 720 ml Output Urine Total 600 ml 2350 ml Microbiology Date/Time Source Procedure Growth Status 04/28/20 16:40 Rectum - Final NO CARBAPENEM-RESISTANT ENTEROBACTERI... Complete 04/28/20 16:40 Nasal Nares MRSA Culture - Final NO METHICILLIN RESISTANT STAPH AUREUS... Complete Current Medications Medications (Trade) Dose Ordered Sig/Xi Route PRN Reason Start Time Stop Time Status Last Admin Dose Admin Amlodipine Besylate (Norvasc) 10 mg DAILY ORAL 04/29/20 09:00 05/29/20 08:59 05/01/20 08:39 Atorvastatin Calcium (Lipitor) 20 mg BEDTIME ORAL 04/29/20 21:00 07/28/20 20:59 04/30/20 20:56 Benazepril HCl (Lotensin) 40 mg DAILY ORAL 04/29/20 09:00 05/29/20 08:59 05/01/20 08:39 Bisacodyl (Dulcolax) 10 mg DAILYPRN PRN RECTAL Constipation 04/30/20 14:45 07/29/20 14:44 05/01/20 08:45 Dextrose (Dextrose 50%) 25 ml Q30M PRN IV Hypoglycemia 04/29/20 16:45 07/28/20 16:44 Dextrose (Dextrose 50%) 50 ml Q30M PRN IV Hypoglycemia 04/29/20 16:45 07/28/20 16:44 Hydralazine HCl (Apresoline) 50 mg Q6HR ORAL 04/29/20 00:00 07/28/20 00:00 05/01/20 06:09 Insulin Aspart (NovoLOG) BEFORE MEALS AND HS SUBQ 04/29/20 21:00 07/28/20 20:59 05/01/20 06:13 Insulin Detemir (Levemir) 24 units BEDTIME SUBQ 04/29/20 21:00 07/28/20 20:59 04/30/20 21:02 Ondansetron HCl (Zofran) 4 mg Q4H PRN IVP Nausea & Vomiting 04/28/20 23:45 05/28/20 23:44 Tamsulosin HCl (Flomax) 0.4 mg BEDTIME ORAL 04/29/20 21:00 05/29/20 20:59 04/30/20 20:56 Zolpidem Tartrate (Ambien) 5 mg HSPRN PRN ORAL Insomnia 04/28/20 23:45 05/05/20 23:44 Laboratory Tests 04/30/20 21:00: POC Whole Blood Glucose 223H 05/01/20 06:05: POC Whole Blood Glucose [Pending] Height (Feet): 5 Height (Inches): 2.00 Weight (Pounds): 170 Objective exam stable cutler indwelling urine yellow/brooke with occasional debris Jone Page MD May 01, 2020 10:27
[2020-05-01 12:00] VITALS: BP 134/87
--- NOTE | 2020-05-01 15:32 | General Progress Note ---
Subjective ROS Limited/Unobtainable: No Constitutional: Reports: weakness HEENT: Reports: no symptoms Cardiovascular: Reports: no symptoms Respiratory: Reports: no symptoms Gastrointestinal/Abdominal: Reports: no symptoms Genitourinary: Reports: no symptoms Neurologic/Psychiatric: Reports: no symptoms Endocrine: Reports: no symptoms Hematologic/Lymphatic: Reports: no symptoms Allergies: Coded Allergies: [place] (Verified Allergy, Unknown, 04/29/20) Uncoded Allergies: AVOCADOS (Allergy, Unknown, 02/27/20) All Systems: reviewed and negative except above Subjective no complaints. feels no sob. no chest pain BP better controlled. no dizziness. labs reviewed Objective Last 24 Hour Vital Signs Date Time Temp Pulse Resp B/P (MAP) Pulse Ox O2 Delivery O2 Flow Rate FiO2 05/01/20 12:00 97.8 93 18 134/87 (103) 98 05/01/20 11:48 134/87 05/01/20 09:00 Room Air 05/01/20 08:39 148/79 05/01/20 08:39 92 148/79 05/01/20 08:00 98.4 92 18 148/79 (102) 98 05/01/20 06:09 143/62 05/01/20 04:00 98.3 104 18 143/62 (89) 98 104 05/01/20 01:10 141/65 04/30/20 21:00 Room Air 04/30/20 20:00 97.7 88 17 158/83 (108) 98 88 04/30/20 18:14 155/81 04/30/20 16:00 99.3 91 18 136/70 (92) 99 91 Intake and Output 04/30/20 05/01/20 19:00 07:00 Intake Total 490 ml 720 ml Output Total 600 ml 2350 ml Balance -110 ml -1630 ml Intake Oral 490 ml 720 ml Output Urine Total 600 ml 2350 ml Laboratory Tests 04/30/20 21:00: POC Whole Blood Glucose 223H 05/01/20 06:05: POC Whole Blood Glucose [Pending] 05/01/20 11:47: POC Whole Blood Glucose [Pending] Height (Feet): 5 Height (Inches): 2.00 Weight (Pounds): 170 Objective General Appearance: WD/WN, no apparent distress, alert EENT: normal ENT inspection Neck: non-tender, normal alignment Cardiovascular: normal rate Respiratory/Chest: chest wall non-tender, lungs clear, normal breath sounds Abdomen: normal bowel sounds, non tender, soft, no organomegaly, no mass Edema: no edema noted Arm (L), no edema noted Arm (R) Neurologic: occupational medicine physician II-XII grossly normal, alert, oriented x 3, responsive Assessment/Plan Problem List: (1) Hypertensive emergency ICD Codes: I10 - Essential (primary) hypertension SNOMED: 729651549 (2) Urinary retention ICD Codes: R33.9 - Retention of urine, unspecified SNOMED: 984126304 Status: stable Assessment/Plan: monitor bp mobilize flomax for urinary retention monitor BS- elevated. may need to increase diabetes rx dvt and stress ulcer prophylaxis dc per cards Juancarlos Sims MD May 01, 2020 15:32
[2020-05-01 16:00] VITALS: BP 160/88
--- NOTE | 2020-05-01 16:00 | NUR ---
NURSE NOTES: Patient had small BM, stool sample sent to lab
--- NOTE | 2020-05-01 19:40 | NUR ---
NURSE HAND-OFF: Important Events on Shift: monitor BP and BS Patient Status: stable Diet: ccho low sodium Pending Orders: n/a Pending Results/Labs: stool OB Pending MD notification: n/a Latest Vital Signs: Temperature 97.9 , Pulse 101 , B/P 122 /78 , Respiratory Rate 18 , O2 SAT 98 , Room Air, O2 Flow Rate . Vital Sign Comment: n/a Latest Dumont Fall Score: 35 Fall Risk: Medium Risk Safety Measures: Call light Within Reach, Side Rails x2, Bed position Low and Locked. Fall Precautions: Yellow Socks Yellow Gown Door Sign Patient Fall Education Report given to Oksana LOPEZ.
[2020-05-01 20:00] VITALS: BP 158/72
[2020-05-01] MEDS: Atorvastatin 20mg tab ORAL SCH (21:42)
[2020-05-01] MEDS: Tamsulosin 0.4mg cap ORAL SCH (21:42)
[2020-05-01] MEDS: Levemir Flexpen SUBQ SCH (21:51)
[2020-05-02] VITALS: BP 142/78
[2020-05-02 01:05] VITALS: BP 142/78
--- NOTE | 2020-05-02 02:57 | NUR ---
NURSES NOTE: Pt in bed, A/OX4, denies pain or discomfort at this time. No outward s/s of distress noted. Breathing pattern is even and unlabored on RA. IV, L hand, is in place, now hep locked. Salazar in place, draining to gravity. Urine straw yellow in color. All due medications will be administered. Bed at lowest level, call light within reach. Pt will continue to be observed.
[2020-05-02 04:00] VITALS: BP 146/81
[2020-05-02] MEDS: HydrALAZINE 50mg tab ORAL SCH ×2 (06:11→11:37)
[2020-05-02] MEDS: NovoLOG Insulin Flexpen SUBQ SCH ×3 (06:17→16:30)
[2020-05-02] MEDS ORDERED: BENAZEPRIL HCL40 MG ORAL (07:15)
[2020-05-02] MEDS ORDERED: NORVASC10 MG ORAL (07:15)
[2020-05-02] MEDS ORDERED: LIPITOR20 MG ORAL (07:15)
--- NOTE | 2020-05-02 07:45 | NUR ---
NURSE NOTES: Received report from JESSICA Gandhi. Pt awake in bed on RA, alert and oriented. Breathing even and unlabored. No acute distress noted. Denies pain at this time. Received orders from this morning to YO cutler and discharge home after pt voids. Will carry out Call light within reach. Will continue to monitor.
--- NOTE | 2020-05-02 07:59 | NUR ---
NURSE HAND-OFF: Important Events on Shift:[NONE] Patient Status: [STABLE] Diet: [CCHO MEDIUM LOW SODIUM] Pending Orders: [D/C] Pending Results/Labs:[NONE] Pending MD notification:[NONE] Latest Vital Signs: Temperature 98.0 , Pulse 95 , B/P 146 /81 , Respiratory Rate 17 , O2 SAT 98 , Room Air, O2 Flow Rate . Vital Sign Comment: [WNL] Latest Dumont Fall Score: 35 Fall Risk: Medium Risk Safety Measures: Call light Within Reach, Bed Alarm Zone 1, Side Rails Side Rails x2, Bed position Low and Locked. Fall Precautions: Yellow Socks Yellow Gown Door Sign Patient Fall Education Report given to [JESSICA PINZON].
[2020-05-02 08:00] VITALS: BP 138/75
--- NOTE | 2020-05-02 08:02 | Urology Progress Note ---
Assessment/Plan Status: stable Assessment/Plan: 1. Urinary retention. 2. Probable neurogenic bladder. 3. Proteinuria. 4. Mild acute kidney injury. 5. Hematuria history. cutler indwelling hand irrigated and do PRN started flomax plan voiding trial today monitor PVR and reinsert cutler PRN cysto later electively monitor renal fxn stool softeners PRN d/w Dr. Sims fully Subjective Allergies: Coded Allergies: [place] (Verified Allergy, Unknown, 04/29/20) Uncoded Allergies: AVOCADOS (Allergy, Unknown, 02/27/20) Subjective all noted, feels fair Objective Last 24 Hour Vital Signs Date Time Temp Pulse Resp B/P (MAP) Pulse Ox O2 Delivery O2 Flow Rate FiO2 05/02/20 06:11 146/81 05/02/20 04:00 98.0 95 17 146/81 (102) 98 05/02/20 01:05 98.7 93 18 142/78 (99) 98 05/02/20 00:00 98.7 93 18 142/78 (99) 98 05/01/20 23:33 158/72 05/01/20 21:00 Room Air 05/01/20 20:00 98.8 94 17 158/72 (100) 97 05/01/20 17:43 122/78 05/01/20 16:00 97.9 101 18 160/88 (112) 98 05/01/20 12:00 97.8 93 18 134/87 (103) 98 05/01/20 11:48 134/87 05/01/20 09:00 Room Air 05/01/20 08:39 148/79 05/01/20 08:39 92 148/79 Intake and Output 05/01/20 05/02/20 19:00 07:00 Intake Total 240 ml 420 ml Output Total 1400 ml 1200 ml Balance -1160 ml -780 ml Intake Oral 240 ml 420 ml Output Urine Total 1400 ml 1200 ml # Bowel Movements 1 Microbiology Date/Time Source Procedure Growth Status 04/28/20 16:40 Rectum - Final NO CARBAPENEM-RESISTANT ENTEROBACTERI... Complete 04/28/20 16:40 Nasal Nares MRSA Culture - Final NO METHICILLIN RESISTANT STAPH AUREUS... Complete Current Medications Medications (Trade) Dose Ordered Sig/Xi Route PRN Reason Start Time Stop Time Status Last Admin Dose Admin Amlodipine Besylate (Norvasc) 10 mg DAILY ORAL 04/29/20 09:00 05/29/20 08:59 05/01/20 08:39 Atorvastatin Calcium (Lipitor) 20 mg BEDTIME ORAL 04/29/20 21:00 07/28/20 20:59 05/01/20 21:42 Benazepril HCl (Lotensin) 40 mg DAILY ORAL 04/29/20 09:00 05/29/20 08:59 05/01/20 08:39 Bisacodyl (Dulcolax) 10 mg DAILYPRN PRN RECTAL Constipation 04/30/20 14:45 07/29/20 14:44 05/01/20 08:45 Dextrose (Dextrose 50%) 25 ml Q30M PRN IV Hypoglycemia 04/29/20 16:45 07/28/20 16:44 Dextrose (Dextrose 50%) 50 ml Q30M PRN IV Hypoglycemia 04/29/20 16:45 07/28/20 16:44 Hydralazine HCl (Apresoline) 50 mg Q6HR ORAL 04/29/20 00:00 07/28/20 00:00 05/02/20 06:11 Insulin Aspart (NovoLOG) BEFORE MEALS AND HS SUBQ 04/29/20 21:00 07/28/20 20:59 05/02/20 06:17 Insulin Detemir (Levemir) 24 units BEDTIME SUBQ 04/29/20 21:00 07/28/20 20:59 05/01/20 21:51 Magnesium Citrate (Citrate Of Magnesia) 300 ml ONCE ONCE ORAL 05/02/20 09:00 05/02/20 09:01 Ondansetron HCl (Zofran) 4 mg Q4H PRN IVP Nausea & Vomiting 04/28/20 23:45 05/28/20 23:44 Tamsulosin HCl (Flomax) 0.4 mg BEDTIME ORAL 04/29/20 21:00 05/29/20 20:59 05/01/20 21:42 Zolpidem Tartrate (Ambien) 5 mg HSPRN PRN ORAL Insomnia 04/28/20 23:45 05/05/20 23:44 Laboratory Tests 05/01/20 11:47: POC Whole Blood Glucose [Pending] 05/01/20 15:00: Stool Occult Blood [Pending] 05/01/20 16:38: POC Whole Blood Glucose [Pending] 05/01/20 21:48: POC Whole Blood Glucose 192H 05/02/20 06:15: POC Whole Blood Glucose 171H Height (Feet): 5 Height (Inches): 2.00 Weight (Pounds): 170 Objective exam stable cutler indwelling urine yellow/brooke with occasional debris Jone Page MD May 02, 2020 08:02
--- NOTE | 2020-05-02 08:15 | Discharge Summary ---
DATE OF ADMISSION: 04/28/2020 DATE OF DISCHARGE: 05/02/2020 ADMISSION DIAGNOSES: 1. Uncontrolled hypertension. 2. Hypertensive emergency. 3. Diabetes. 4. Urinary retention. 5. Neurogenic bladder. DISCHARGE DIAGNOSES: 1. Uncontrolled hypertension. 2. Hypertensive emergency. 3. Diabetes. 4. Urinary retention. 5. Neurogenic bladder. HOSPITAL COURSE: The patient was admitted with complaints of uncontrolled hypertension and hypertensive urgency. She was admitted to rule out for [place] with serial enzymes and EKGs. Cardiology consultation was obtained. Her antihypertensive regimen was adjusted. She improved gradually. On discharge, blood pressure is better controlled. She will follow up in 2 weeks in the office with her line decorator. DISCHARGE MEDICATIONS: Please see discharge medication list for discharge medications. DIET: Cardiac diabetic diet. ACTIVITIES: Ad sreekanth. Juancarlos Sims M.D. DR: Sabrina JOB#: [id number] CC:
--- NOTE | 2020-05-02 08:20 | NUR ---
NURSE NOTES: Salazar cath removed. Will continue to monitor
--- NOTE | 2020-05-02 08:49 | Cardiology Report ---
APPROVED REPORT EXAM: Two-dimensional and M-mode echocardiogram with Doppler and color Doppler. INDICATION Hypertensive heart disease M-Mode DIMENSIONS IVSd0.9 (0.7-1.1cm)Left Atrium (MM)3.3 (1.6-4.0cm) LVDd4.4 (3.5-5.6cm)Aortic Root2.2 (2.0-3.7cm) PWd0.7 (0.7-1.1cm)Aortic Cusp Exc.1.7 (1.5-2.0cm) IVSs1.1 cmEPSS0.7 (>1.0cm) LVDs3.3 (2.5-4.0cm) PWs0.9 cm <Conclusion> Technically difficult and limited study due to poor acoustic windows and agitated pt. Study quality precludes accurate assessment of regional wall motion. Normal left ventricular chamber size, systolic function and wall motion. Left ventricular ejection fraction estimated to be 60 %. No evidence of left ventricular hypertrophy. No evidence of pericardial effusion. All other cardiac chamber sizes are within normal limits. Focal aortic valve sclerosis with adequate cusp excursion. Thickened mitral valve leaflets with normal excursion. Mild mitral annulus and aortic root calcification. Pulmonic valve not well visualized. Normal tricuspid valve structure. IVC is normal in size with physiological collapse. A color flow and spectral Doppler study was performed and revealed: No aortic regurgitation. No mitral regurgitation. Mitral diastolic velocities suggest mild left ventricular diastolic dysfunction (Grade I). No tricuspid regurgitation. No pulmonic regurgitation present.
[2020-05-02] MEDS ORDERED: Magnesium Citrate Liq Btl ORAL ONE (09:00)
[2020-05-02 11:27] VITALS: BP 153/84
--- NOTE | 2020-05-02 12:30 | NUR ---
NURSE NOTES: No void after cutler out at 0820. Bladder scan done. 266ml. Will continue to monitor.
--- NOTE | 2020-05-02 14:45 | NUR ---
NURSE NOTES: No void since Salazar out at 0830. Bladder scan showed 555ml. Notified Dr. Page. Received new order to insert Salazar cath and ok to discharge home with Salazar. Order carried out
--- NOTE | 2020-05-02 15:00 | NUR ---
NURSE NOTES: Inserted Salazar cath with 16fr. Pt tolerated well. noted draining urine about 400cc.
--- NOTE | 2020-05-02 15:27 | NUR ---
*-*DISCHARGE PLANNING*-* PATIENT HAS BEEN REFERRED TO: [facility] P: [phone]
[2020-05-02 16:00] VITALS: BP 149/76
--- NOTE | 2020-05-02 16:26 | NUR ---
*-*DISCHARGE PLANNING*-* PATIENT HAS BEEN REFERRED TO: [facility] P: [phone]
--- NOTE | 2020-05-02 16:56 | Cardiology Progress Note ---
Subjective DATE OF SERVICE: May 02, 2020 BP parameters improved, although still suboptimal at times. No CP or SOB Now with minimal abdominal pain; she is c/o constipation - but moved her bowels today. Recurrent urinary retention of over 500cc urine, req'd replacement of Salazar catheter. Objective Last 24 Hour Vital Signs Date Time Temp Pulse Resp B/P (MAP) Pulse Ox O2 Delivery O2 Flow Rate FiO2 05/02/20 16:00 98.4 100 16 149/76 (100) 98 05/02/20 11:37 153/84 05/02/20 11:27 98.5 101 16 153/84 (107) 98 05/02/20 09:00 Room Air 05/02/20 08:42 138/75 05/02/20 08:42 103 138/75 05/02/20 08:00 98.7 103 16 138/75 (96) 98 05/02/20 06:11 146/81 05/02/20 04:00 98.0 95 17 146/81 (102) 98 05/02/20 01:05 98.7 93 18 142/78 (99) 98 05/02/20 00:00 98.7 93 18 142/78 (99) 98 05/01/20 23:33 158/72 05/01/20 21:00 Room Air 05/01/20 20:00 98.8 94 17 158/72 (100) 97 05/01/20 17:43 122/78 ROS: No change from my evaluation of 04/28/20. HEENT: normal ENT inspection RHYTHM: NSR, PACs LUNGS: lungs clear bilaterally CARDIAC: normal rate, regular rhythm, normal S1 and S2, gallop/S4 ABDOMEN: normal bowel sounds, non tender, soft, no organomegaly EXTREMITIES: normal range of motion, No edema Laboratory Tests Test 05/01/20 21:48 05/02/20 06:15 05/02/20 11:29 POC Whole Blood Glucose 192 MG/DL (74-106) H 171 MG/DL (74-106) H Pending Assessment/Plan Assessment/Plan Hypertensive urgency Coronary atherosclerosis IRDM with hyperglycemia Urinary retention/Neurogenic bladder Hx of right carotid stenosis Hyperlipidemia Acute renal insuff - likely due to contrast load, improving with IVF Leukocytosis - resolved Constipation Maintain current antiHTN meds Resume usual insulin regimen at home Bowel regimen Voiding trial to follow - maintain catheter for now. Antiplatelet and statin rx Consider MRA neck when renal function stabilizes; can be done as outpatient Federico Brito MD May 02, 2020 16:56
--- NOTE | 2020-05-02 17:05 | NUR ---
NURSE NOTES: Pt in stable condition. Per ok to discharge home with cutler cath. Provided discharge instructions, Rx, Home health info. and supplies for Cutler cath. Pt verbalized understanding. All belongings were accounted for. IV and ID band removed. Pt was escorted by nurse and picked u by son.
--- NOTE | 2020-05-03 11:53 | NUR ---
*-*DISCHARGE PLANNING*-* PATIENT HAS BEEN REFERRED TO: [facility] P: [phone] S/W [facility], WAITING FOR AUTHORIZATION FOR ADMISSION, WILL CALL BACK
--- NOTE | 2020-05-03 16:15 | NUR ---
NURSE NOTES: Received a call from the patient stated that she was discharge yesterday and that her medications are in the pharmacy and were not given back to her. RN called [facility]x [facility], she stated that her meds are in the phx. 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
--- NOTE | 2020-05-03 16:26 | CDS Physician Query ---
Clarification is required for compliance, coding accuracy, and to reflect severity of illness for this patient. Dear Dr. Juancarlos Sims M.D. Date:05/03/20 CDIS: Alex Espino 64-year-old female w/ history of hypertensive heart disease, diabetes, hyperlipidemia presented with complaints of shortness of breath and chest tightness. ASSESSMENT: This is a pleasant female with history of hypertension and diabetes admitted with complaints of shortness of breath secondary to uncontrolled hypertension. LABORATORY AND DIAGNOSTIC DATA: White count 9, hemoglobin 15, hematocrit 45, platelets 280. Sodium , BUN 22, creatinine 1.6. Urine was clear. CT scan of the chest showed mild diffuse colonic wall thickening. Clinical Finding Show: 04/28 04/29 04/30 09:33 02:55 06:35 Creatinine 1.2 1.6 1.4 BUN 13 22 32 GFR 54.7 39.3 45.8 A posssible diagnois of "Mild acute kidney injury" was made in the medical record on Urology PN by Jone Page MD May 02, 2020 08:02 Upon review, it is difficult to determine whether this diagnosis has been ruled in, ruled out,or is still being worked up. Please indicate below the status of the aforementioned diagnosis. [x] Treated and resolve [] Presumed and treated [] Currently under treatment [] Still being worked-up [] Ruled out Present on Admission: [] Yes [] No [] Clinically Undetermined Physician signature Date Please also document in your Progress Notes and/or Discharge Summary and indicate if the condition was present on admission. MTDD
== END 2020-05-02 17:45 | disposition home health service (06) | DRG 305 ==
LOC: EMR 09:37 → EDBEDREQ 10:04 → 2W 10:11 → EDBEDREQ 15:38 → 2W 04-29 01:00 → 3E 04-29 12:55 → 2W 04-29 12:57 → 2E 04-29 17:53 → 3E 04-30 16:50
DX: I16.0 Hypertensive urgency (principal); N17.9 Acute kidney failure, unspecified; E78.5 Hyperlipidemia, unspecified; N31.9 Neuromuscular dysfunction of bladder, unspecified; I25.10 Atherosclerotic heart disease of native coronary artery without angina pectoris; K59.00 Constipation, unspecified; E11.40 Type 2 diabetes mellitus with diabetic neuropathy, unspecified; I13.10 Hypertensive heart and chronic kidney disease without heart failure, with stage 1 through stage 4 chronic kidney disease, or unspecified chronic kidney disease; E11.22 Type 2 diabetes mellitus with diabetic chronic kidney disease; N18.9 Chronic kidney disease, unspecified; E87.6 Hypokalemia; R33.9 Retention of urine, unspecified; E11.65 Type 2 diabetes mellitus with hyperglycemia
CPT/HCPCS: 36415; 51702; 71045; 71275; 74174; 80048; 80053; 80307; 81003; 82270; 82962; 83605; 83690; 83735; 83880; 84443; 84484; 85025; 85610; 85730; 86850; 86900; 86901; 87081; 93005; 93306; 96374; 96375; 96376; 99285; J1815; J2405; J7030; J8499; S5561; U0002

== ENCOUNTER 2020-05-07 12:10 | Emergency (ER) | payer MEDICARE, MEDICAID ==
[~2020-05-07] VITALS: Ht 157.5 cm; Wt 72.6 kg
[~2020-05-07 12:10] MED LIST changes: +ADALAT10 MG ORAL; +ATORVASTATIN CA40 MG ORAL; +GABAPENTIN100 MG ORAL; +GABAPENTIN400 MG ORAL; +HUMALOG100 UNIT/3 SUBQ; +LIPITOR20 MG ORAL; +METFORMIN HCL500 M1 ORAL; +NIFEDIPINE ER60 M2 ORAL; +NORVASC10 MG ORAL
[2020-05-07 12:16] VITALS: BP 180/88
--- NOTE | 2020-05-07 12:16 | NUR ---
ED Nurse Note: PT walked in to ed for requestign cutler cath. pt states she has a wilma with urologist (dr elias) but couldnt wait until the wilma due to abd pain from unable to urinate. pt states her last void was around 10pm of yesterday,
--- NOTE | 2020-05-07 12:49 | NUR ---
ED Nurse Note: cutler with leg bag inserted.
--- NOTE | 2020-05-07 13:05 | NUR ---
ED Nurse Note: pt currently denies any pain to abd after cutler is inserted and note with 800ml output
[2020-05-07 13:14] VITALS: BP 152/84
--- NOTE | 2020-05-07 13:14 | NUR ---
ER DISCHARGE NOTE: Patient is cleared to be discharged per ERMD, pt is aox4, on room air, with stable vital signs. pt was given dc instructions, pt was able to verbalize understanding, pt id band removed without complications. pt is able to ambulate with steady gait. pt took all belongings.
--- NOTE | 2020-05-08 08:16 | Emergency Room Report ---
History of Present Illness General Chief Complaint: Abdominal Pain Source: Patient, Medical Record Present Illness HPI 64-year-old female presents for urinary retention. History of neurogenic bladder. Had Cutler catheter in place and was removed by urology yesterday in office. Patient states since then she has been having increased urinary retention and pain. Sharp, 10 out of 10, nonradiating. Denies fevers or chills. Denies flank pain. No other aggravating relieving factors. 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 COVID-19 Screening: Negative COVID-19 COVID-19 Testing Source: 05/02/20 Patient History Past Medical History: DM, HTN, CVA/TIA, other - Urinary retention Past Surgical History: none Pertinent Family History: none Social History: Denies: smoking, alcohol use, drug use Now: No Immunizations: UTD Reviewed Nursing Documentation: PMH: Agreed; PSxH: Agreed Nursing Documentation-PMH Past Medical History: No History, Except For Hx Cardiac Problems: Yes Hx Hypertension: Yes Hx Diabetes: Yes Hx Cancer: No Hx Gastrointestinal Problems: Yes Hx Neurological Problems: Yes Hx Cerebrovascular Accident: Yes Hx Transient Ischemic Attacks: Yes Review of Systems All Other Systems: negative except mentioned in HPI Physical Exam Vital Signs Date Time Temp Pulse Resp B/P (MAP) Pulse Ox O2 Delivery O2 Flow Rate FiO2 05/07/20 12:14 98.2 110 20 192/90 (124) 99 Room Air Sp02 EP Interpretation: reviewed, normal General Appearance: no apparent distress, alert, GCS 15, non-toxic, obese Head: normocephalic, atraumatic Eyes: bilateral eye normal inspection, bilateral eye PERRL ENT: hearing grossly normal, normal pharynx, no angioedema, normal voice Neck: full range of motion, supple/symm/no masses Respiratory: chest non-tender, lungs clear, normal breath sounds, speaking full sentences Cardiovascular #1: regular rate, rhythm, no edema Cardiovascular #2: 2+ carotid (R), 2+ carotid (L), 2+ radial (R), 2+ radial (L), 2+ dorsalis pedis (R), 2+ dorsalis pedis (L) Gastrointestinal: normal bowel sounds, non tender, soft, non-distended, no guarding, no rebound Rectal: deferred Genitourinary: normal inspection, no CVA tenderness Musculoskeletal: back normal, normal range of motion, gait/station normal, non- tender Neurologic: alert, motor strength/tone normal, oriented x3, sensory intact, r esponsive, speech normal Psychiatric: judgement/insight normal, memory normal, mood/affect normal, no suicidal/homicidal ideation Reflexes: 3+ bicep (R), 3+ bicep (L), 3+ tricep (R), 3+ tricep (L), 3+ knee (R), 3+ knee (L) Lymphatic: no adenopathy Medical Decision Making Diagnostic Impression: Primary Impression: Urinary retention ER Course Hospital Course 64-year-old female presents with urinary retention. Cutler catheter removed yesterday Differential diagnoses include: obstruction, UTI, BPH Clinical course Patient placed on stretcher. After initial history and physical I ordered cutler cather with immediate relief of obstruction Patient was recently admitted to the hospital for uncontrolled hypertension and was being managed by urology with a Cutler catheter. Discussed findings with patient. Will discharge home with Cutler catheter and leg bag. States she will follow-up with the urologist this week. Diagnosis - urinary retention Stable and discharged home with cutler + leg bag. Instructed to followup with PMD/urologist. Return to ED if symptoms recur or worsen Last Vital Signs Date Time Temp Pulse Resp B/P (MAP) Pulse Ox O2 Delivery O2 Flow Rate FiO2 05/07/20 13:14 98.0 88 18 152/84 98 Room Air Status: improved Disposition: HOME, SELF-CARE Condition: Stable Referrals: Federico Brito MD (PCP) Jone Page MD Patient Instructions: Acute Urinary Retention, Female, [id number] Pan Post MD May 08, 2020 08:16
== END 2020-05-07 13:15 | disposition home or self-care (01) ==
LOC: EMR 12:45
DX: R33.9 Retention of urine, unspecified (principal); Z91.018 Allergy to other foods; E11.9 Type 2 diabetes mellitus without complications; I10 Essential (primary) hypertension; Z86.73 Personal history of transient ischemic attack (TIA), and cerebral infarction without residual deficits; E66.9 Obesity, unspecified; N13.9 Obstructive and reflux uropathy, unspecified
CPT/HCPCS: 51702; 99282